=== PATIENT | female | born 1965 | race African-American/Black ===

== ENCOUNTER 2017-02-18 12:47 | Inpatient (IN) | payer BC ==
[2017-02-18 14:59] VITALS: BMI 28.4
--- NOTE | 2017-02-18 17:07 | HP ---
COWS - Scale Resting Pulse: 0= [place] 80 or Below Sweatin=Flushed/Facial Moisture Restless Observation: 1= Difficult to Sit Still Pupil Size: 0= Normal to Room Light Bone or Joint Aches: 2= Severe Diffuse Aches Runny Nose/ Eye Tearin= Runny Nose/Eyes GI Upset > 30mins: 2= Nausea/Diarrhea Tremor Observation: 2= Slight Tremor Visible Yawning Observation: 2= >3x During Session Anxiety or Irritability: 2=Irritable/Anxious Goose Flesh Skin: 3=Piloerection COWS Score: 18 Admission ROS S - HPI Chief Complaint: I need help with my drug use. Allergies/Adverse Reactions: Allergies Allergy/AdvReac Type Severity Reaction Status Date / Time Sulfa (Sulfonamide Allergy Intermediate Hives Verified 02/18/17 16:47 Antibiotics) [Sulfa(Sulfonamide Antibiotics)] History of Present Illness: pt is a 52yr old female with a history of heroin dependence seeking detox for treatment. Exam Limitations: Physical Impairment (use of walker for ambulating) - Ebola screening Have you traveled outside of the country in the last 21 days: No Have you had contact with anyone from an Ebola affected area: No Have you been sick,other than usual withdrawal symptoms: No Do you have a fever: No - Review of Systems Constitutional: Chills, Diaphoresis, Night Sweats, Changes in sleep EENT: reports: Tearing, Nose Congestion Respiratory: reports: No Symptoms reported Cardiac: reports: No Symptoms Reported GI: reports: Diarrhea, Poor Appetite, Poor Fluid Intake : reports: No Symptoms Reported Musculoskeletal: reports: Back Pain, Joint Pain, Muscle Weakness Integumentary: reports: Flushing, Sweating Neuro: reports: Headache, Tingling, Tremors Endocrine: reports: Excessive Sweating, Flushing, Intolerance to Cold, Intolerance to Heat Hematology: reports: Anemia Psychiatric: reports: Judgement Intact, Mood/Affect Appropiate, Orientated x3, Agitated, Anxious Other Systems: Reviewed and Negative Patient History - Patient Medical History Hx Anemia: Yes (d/t gastric bypass) Hx Asthma: No Hx Chronic Obstructive Pulmonary Disease (COPD): No Hx Cancer: No Hx Cardiac Disorders: No Hx Congestive Heart Failure: No Hx Hypertension: Yes Hx Hypercholesterolemia: No Hx Pacemaker: No HX Cerebrovascular Accident: No Hx Seizures: No Hx Dementia: No Hx Diabetes: No (in past/ resolved) Hx Gastrointestinal Disorders: No Hx Liver Disease: No Hx Genitourinary Disorders: No Hx Sexually Transmitted Disorders: No Hx Renal Disease (ESRD): No Hx Thyroid Disease: No Hx Human Immunodeficiency Virus (HIV): No (negative) Hx Hepatitis C: No (negative) Hx Depression: Yes Hx Suicide Attempt: No Hx Bipolar Disorder: Yes Hx Schizophrenia: No - Patient Surgical History Past Surgical History: Yes Hx Neurologic Surgery: No Hx Cataract Extraction: No Hx Cardiac Surgery: No Hx Lung Surgery: No Hx Breast Surgery: No Hx Breast Biopsy: No Hx Abdominal Surgery: No Hx Appendectomy: No Hx Cholecystectomy: Yes (SX--10 YRS AGO) Hx Section: Yes (X1--16 YRS AGO) Hx Orthopedic Surgery: Yes (HIP SX--X5 DUE TO HIP ANOMALY) Other Surgical History: bariatric surgery-sleeve in 2014 Anesthesia Reaction: No - PPD History Previous Implant?: Yes Documented Results: Negative w/o proof Results: 0mm PPD to be Administered?: Yes - Reproductive History Patient is a Female of Child Bearing Age (11 -55 yrs old): No Last Menstrual Period: 10/26/10 - Smoking Cessation Smoking history: Current every day smoker Have you smoked in the past 12 months: Yes Aproximately how many cigarettes per day: 4 Hx Chewing Tobacco Use: No Initiated information on smoking cessation: Yes 'Breaking Loose' booklet given: 02/18/17 - Substance & Tx. History Hx Alcohol Use: Yes Hx Substance Use: Yes Substance Use Type: Cocaine, Heroin Hx Substance Use Treatment: Yes (last detox [facility] 01/2016) - Substances Abused Heroin Route: Inhalation Frequency: Daily Amount used: 2-4 bags Age of first use: 44 Date of Last Use: 02/18/17 Crack Route: Smoking Frequency: 3-6 times per week Amount used: $100 Age of first use: 26 Date of Last Use: 02/17/17 Family Disease History - Family Disease History Family Disease History: Diabetes: Mother, Heart Disease: Mother, Respiratory: Mother, Brother Admission Physical Exam BHS - Vital Signs Vital Signs: Vital Signs - 24 hr 02/18/17 14:55 Temperature 96.8 F L Pulse Rate 66 Respiratory 20 Rate Blood Pressure 115/72 - Physical General Appearance: Yes: Appropriately Dressed, Moderate Distress, Tremorous, Irritable, Sweating, Anxious HEENTM: Yes: Normal Voice, Nasal Congestion, Rhinorrhea Respiratory: Yes: Lungs Clear, Normal Breath Sounds, No Respiratory Distress Neck: Yes: No masses,lesions,Nodules Breast: Yes: Within Normal Limits Cardiology: Yes: Regular Rhythm, Regular Rate, S1, S2 Abdominal: Yes: Normal Bowel Sounds, Non Tender, Soft Genitourinary: Yes: Within Normal Limits Back: Yes: Normal Inspection Musculoskeletal: Yes: full range of Motion, Back pain Extremities: Yes: Normal Capillary Refill, Normal Inspection, Non-Tender, Tremors 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: 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 NML intact, Fully Oriented, Alert, Normal Response Integumentary: Yes: Normal Color, Diaphoresis Lymphatic: Yes: Within Normal Limits - Diagnostic (1) Asthma Current Visit: Yes Status: Chronic (2) Essential hypertension Current Visit: Yes Status: Chronic (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 (4) Nicotine dependence Current Visit: Yes Status: Chronic Qualifiers: Nicotine product type: cigarettes Substance use status: uncomplicated Qualified Code(s): F17.210 - Nicotine dependence, cigarettes, uncomplicated; F17.210 - Nicotine dependence, cigarettes, uncomplicated (5) Opioid dependence with withdrawal Current Visit: Yes Status: Chronic Cleared for Admission [facility] - Detox or Rehab [facility] Level of Care: Medically Managed Detox Regimen/Protocol: Methadone [facility] Breath Alcohol Content Breath Alcohol Content: 0 Urine Pregancy Test - Result Urine Test Results: Negative- NO Line Present Urine Drug Screen - Results Drug Screen Negative: No Urine Drug Screen Results: THC-Marijuana, CINTHIA-Cocaine, OPI-Opiates, BAR- Barbiturates
[2017-02-18] MEDS ORDERED: guaiFENesin/D-METHORPHAN HB 10 ML UNIT-DOSE CUPS PO PRN (17:15)
[2017-02-18] MEDS ORDERED: IBUPROFEN 400 MG TABLET (FP) PO PRN (17:15)
[2017-02-18] MEDS ORDERED: MENTHOL/PHENOL 1 EACH UD MM PRN (17:15)
[2017-02-18] MEDS ORDERED: MAGNESIUM CITRATE 300 ML BOTTLE PO PRN (17:15)
[2017-02-18] MEDS ORDERED: P-EPHED 60MG/TRIPROLIDI 2.5MG TABLET PO PRN (17:15)
[2017-02-18] MEDS ORDERED: MAGNESIUM HYDROX 2400MG/30ML ORAL SUSPENSION 30 ML CUP PO PRN (17:15)
[2017-02-18] MEDS ORDERED: MAG HYDROX/AL HYDROX/SIMETH 30 ML UNIT-DOSE CUP PO PRN (17:15)
[2017-02-18] MEDS ORDERED: LOPERAMIDE HCL 2 MG CAPSULE PO PRN (17:15)
[2017-02-18] MEDS ORDERED: METHADONE HCL 10 MG TABLET (FOR DETOX USE ONLY) PO ONE ×2 (17:45→23:00)
[2017-02-18] MEDS: diazePAM 5 MG TABLET PO PRN ×2 (18:31→22:44)
[2017-02-18 21:18] LABS: URINE APPEARANCE CLOUDY; URINE BILIRUBIN NEGATIVE (NEGATIVE); URINE BLOOD NEGATIVE (NEGATIVE); URINE COLOR AMBER; URINE GLUCOSE (UA) NEGATIVE (NEGATIVE); URINE KETONE TRACE (NEGATIVE); URINE NITRITE NEGATIVE (NEGATIVE)
[2017-02-18 21:23] LABS: URINE PROTEIN 1+ (NEGATIVE)
[2017-02-18 21:26] LABS: URINE BACTERIA RARE /hpf (NONE SEEN); URINE HYALINE CAST 2 /lpf; URINE MUCUS MANY; URINE RBC 2 /hpf (0-3); URINE WBC 16 /hpf (3-5)
[2017-02-18 22:44] LABS: URINE LEUK ESTERASE Negative (NEGATIVE)
[2017-02-18] MEDS: RANITIDINE HCL 150 MG TABLET (FP) PO SCH (22:45)
[2017-02-18] MEDS: GABAPENTIN 100 MG CAPSULE (FP) PO SCH (22:45)
[2017-02-18] MEDS: THIAMINE HCL 100 MG TABLET (FP) PO SCH (22:45)
[2017-02-18] MEDS: diphenhydrAMINE HCL 50 MG CAPSULE PO PRN (22:46)
[2017-02-19] MEDS: diphenhydrAMINE HCL 50 MG CAPSULE PO PRN (01:51)
[2017-02-19] MEDS: NICOTINE POLACRILEX 2 MG GUM BC PRN ×3 (01:53→12:45)
[2017-02-19] MEDS: diazePAM 5 MG TABLET PO PRN ×5 (02:42→22:32)
[2017-02-19] MEDS: GABAPENTIN 100 MG CAPSULE (FP) PO SCH ×3 (06:04→22:27)
--- NOTE | 2017-02-19 07:31 | CONSULT ---
[facility] Psychiatric Consult - Data Date of interview: 02/19/17 Admission source: [facility] Identifying data: This is 52 years old female ambulating with wheelchair, with history of Bipolar disorder, history of psychiatric hospitalizations, intoxicated with: Cocaine, Cannabis, Opioids, Barbiturates, Heroin and Nicotine Substance Abuse History: Result. Urine Test Results: Negative- NO Line Present. Urine Drug Screen. - Results. Drug Screen Negative: No. Urine Drug Screen Results: THC-Marijuana, CINTHIA-Cocaine, OPI-Opiates, BAR-Barbiturates. - Smoking Cessation. Smoking history: Current every day smoker. Have you smoked in the past 12 months: Yes. Aproximately how many cigarettes per day: 4. Hx Chewing Tobacco Use: No. Initiated information on smoking cessation: Yes. 'Breaking Loose' booklet given: 02/18/17. - Substance & Tx. History. Hx Alcohol Use: Yes. Hx Substance Use: Yes. Substance Use Type: Cocaine, Heroin. Hx Substance Use Treatment: Yes (last detox [facility] 01/2016). - Substances Abused. Heroin. Route: Inhalation. Frequency: Daily. Amount used: 2-4 bags. Age of first use: 44. Date of Last Use: 02/18/17. Crack. Route: Smoking. Frequency: 3-6 times per week. Amount used: $100. Age of first use: 26. Date of Last Use: 02/17/17 Medical History: Gastric Bypass history, DM-2, GERD, Asthma, Anemoa history, , Bylateral Hip Fracture history Psychiatric History: Patient reports history of Bipolar Disorder with most recent psychiatric admission on 2015 at [facility] reports taking prior to admission: Risperdal 2mg po bid Physical/Sexual Abuse/Trauma History: Denies Additional Comment: Risperdal 2mg po bid. - Result. Urine Test Results: Negative- NO Line Present. Urine Drug Screen. - Results. Drug Screen Negative: No. Urine Drug Screen Results: THC-Marijuana, CINTHIA-Cocaine, OPI -Opiates, BAR-Barbiturates Mental Status Exam - Mental Status Exam Alert and Oriented to: Person Cognitive Function: Fair Patient Appearance: Well Groomed Mood: Apprehensive Affect: Mood Congruent Patient Behavior: Cooperative Speech Pattern: Appropriate Voice Loudness: Normal Thought Process: Circumstantial Thought Disorder: Being Controlled Hallucinations: Denies Suicidal Ideation: Denies Homicidal Ideation: Denies Insight/Judgement: Fair Sleep: Difficulty falling asleep Appetite: Weight gain Muscle strength/Tone: Clonus Gait/Station: Deferred Additional Comments: Risperdal 2mg po bid Psychiatric Findings - Problem List ([place] 1, 2,3) (1) Nicotine dependence Current Visit: Yes Status: Chronic Qualifiers: Nicotine product type: cigarettes Substance use status: uncomplicated Qualified Code(s): F17.210 - Nicotine dependence, cigarettes, uncomplicated; F17.210 - Nicotine dependence, cigarettes, uncomplicated (2) Opioid dependence with withdrawal Current Visit: Yes Status: Chronic (3) Bipolar disorder Current Visit: Yes Status: Acute (4) Barbiturate abuse Current Visit: Yes Status: Acute (5) Cannabis dependence Current Visit: Yes Status: Acute (6) Cocaine dependence Current Visit: Yes Status: Acute - Initial Treatment Plan Initial Treatment Plan: Risperdal 2mg po bid
[2017-02-19] MEDS ORDERED: TRIMETHOBENZAMIDE HCL 200MG/2ML INJ IM PRN (08:52)
[2017-02-19] MEDS ORDERED: TRIMETHOBENZAMIDE HCL 200MG/2ML INJ IM ONE (08:52)
[2017-02-19] MEDS: hydrOXYzine PAMOATE 50 MG CAPSULE (FP) PO PRN (08:57)
[2017-02-19] MEDS ORDERED: METHADONE HCL 10 MG TABLET (FOR DETOX USE ONLY) PO ONE (10:00)
[2017-02-19 10:01] LABS: MCH 29.6 pg (25.7-33.7); MCHC 33.5 g/dl (32.0-36.0); MEAN CELL VOLUME 88.4 fl (80-96); MEAN PLT VOLUME 8.9 fl (7.5-11.1); PLATELET COUNT 172 K/MM3 (134-434)
[2017-02-19 10:17] LABS: ALBUMIN 3.1 g/dl (3.4-5.0); ALK PHOS 88 U/L (45-117); ANION GAP 8 (8-16); BILIRUBIN,TOTAL 0.3 mg/dL (0.2-1.0); CALCIUM 8.5 mg/dL (8.5-10.1); CO2 29 mmol/L (21-32); CREATININE 0.7 mg/dL (0.55-1.02); GLUCOSE,RANDOM 142 mg/dL (74-106); SGOT/AST 14 U/L (15-37); SGPT/ALT 20 U/L (12-78)
[2017-02-19] MEDS: risperiDONE 2 MG TABLET PO SCH ×2 (10:53→22:27)
[2017-02-19] MEDS: RANITIDINE HCL 150 MG TABLET (FP) PO SCH ×2 (10:53→22:27)
[2017-02-19] MEDS: PRENATAL VITAMINS W/ FOLIC ACID TABLET (FP) PO SCH (10:54)
--- NOTE | 2017-02-19 10:56 | PN ---
S COWS - Scale Resting Pulse: 0= [place] 80 or Below Sweatin=Flushed/Facial Moisture Restless Observation: 1= Difficult to Sit Still Pupil Size: 0= Normal to Room Light Bone or Joint Aches: 2= Severe Diffuse Aches Runny Nose/ Eye Tearin= Nasal Congestion GI Upset > 30mins: 2= Nausea/Diarrhea Tremor Observation of Outstretched Hands: 2= Slight Tremor Visible Yawning Observation: 2= >3x During Session Anxiety or Irritability: 2=Irritable/Anxious Goose Flesh Skin: 3=Piloerection COWS Score: 17 BHS Progress Note (SOAP) Subjective: body aches sweats shakes interrupted sleep agitation nausea Objective: 02/19/17 10:54 Vital Signs Temperature 97.9 F 02/19/17 06:49 Pulse Rate 51 L 02/19/17 06:49 Respiratory Rate 16 02/19/17 06:49 Blood Pressure 116/53 02/19/17 06:49 O2 Sat by Pulse Oximetry (%) Laboratory Tests 02/18/17 02/18/17 02/19/17 17:13 20:45 07:15 WBC 8.0 RBC 3.89 Hgb 11.5 D Hct 34.4 D MCV 88.4 MCH 29.6 MCHC 33.5 RDW 14.0 Plt Count 172 D MPV 8.9 POC Glucometer 148 Urine Color Gayla Urine Appearance Cloudy Urine pH 5.0 Ur Specific [place] 1.025 Urine Protein 1+ H Urine Glucose (UA) Negative Urine Ketones Trace H Urine Blood Negative Urine Nitrite Negative Urine Bilirubin Negative Urine Urobilinogen 2.0 H Ur Leukocyte Esterase Negative Urine RBC 2 Urine WBC 16 Ur Epithelial Cells Few Urine Bacteria Rare Hyaline Casts 2 Urine Mucus Many RPR Titer 02/19/17 02/19/17 07:15 07:59 WBC RBC Hgb Hct MCV MCH MCHC RDW Plt Count MPV POC Glucometer 111 Urine Color Urine Appearance Urine pH Ur Specific [place] Urine Protein Urine Glucose (UA) Urine Ketones Urine Blood Urine Nitrite Urine Bilirubin Urine Urobilinogen Ur Leukocyte Esterase Urine RBC Urine WBC Ur Epithelial Cells Urine Bacteria Hyaline Casts Urine Mucus RPR Titer Nonreactive labs pending aaox3 ambulating no acute distress Assessment: 02/19/17 10:56 withdrawal sx Plan: continue detox increase fluids tigan prn labs pending
--- NOTE | 2017-02-19 13:24 | EKG ---
Test Reason : Blood Pressure : / mmHG Vent. Rate : 059 BPM Atrial Rate : 059 BPM P-R Int : 174 ms QRS Dur : 102 ms QT Int : 420 ms P-R-T Axes : 054 -20 -06 degrees QTc Int : 415 ms SINUS BRADYCARDIA LOW VOLTAGE QRS CANNOT RULE OUT ANTERIOR INFARCT , AGE UNDETERMINED ABNORMAL ECG NO PREVIOUS ECGS AVAILABLE Confirmed by OBINNA BEAULIEU MD ([id number]) on 02/19/2017 1:23:57 PM Referred By: Confirmed By:OBINNA BEAULIEU MD
[2017-02-19] MEDS: THIAMINE HCL 100 MG TABLET (FP) PO SCH (22:27)
[2017-02-20] MEDS: hydrOXYzine PAMOATE 50 MG CAPSULE (FP) PO PRN (00:50)
[2017-02-20] MEDS: ACETAMINOPHEN 325 MG TABLET (FP) PO PRN (00:51)
[2017-02-20] MEDS: GABAPENTIN 100 MG CAPSULE (FP) PO SCH ×3 (05:45→23:12)
[2017-02-20] MEDS: diazePAM 5 MG TABLET PO PRN ×4 (05:48→23:14)
--- NOTE | 2017-02-20 09:50 | PN ---
S COWS - Scale Resting Pulse: 0= [place] 80 or Below Sweatin=Flushed/Facial Moisture Restless Observation: 1= Difficult to Sit Still Pupil Size: 0= Normal to Room Light Bone or Joint Aches: 2= Severe Diffuse Aches Runny Nose/ Eye Tearin= Nasal Congestion GI Upset > 30mins: 0= None Tremor Observation of Outstretched Hands: 2= Slight Tremor Visible Yawning Observation: 1= 1-2x During Session Anxiety or Irritability: 2=Irritable/Anxious Goose Flesh Skin: 0=Smooth Skin COWS Score: 11 S Progress Note (SOAP) Subjective: chronic hip pain sweats interrupted sleep agitation Objective: 02/20/17 09:48 Vital Signs Temperature 97.5 F L 02/20/17 09:47 Pulse Rate 70 02/20/17 09:47 Respiratory Rate 18 02/20/17 09:47 Blood Pressure 150/99 02/20/17 09:47 O2 Sat by Pulse Oximetry (%) Laboratory Tests 02/18/17 02/18/17 02/19/17 17:13 20:45 07:15 WBC 8.0 RBC 3.89 Hgb 11.5 D Hct 34.4 D MCV 88.4 MCH 29.6 MCHC 33.5 RDW 14.0 Plt Count 172 D MPV 8.9 Sodium Potassium Chloride Carbon Dioxide Anion Gap BUN Creatinine Creat Clearance w eGFR POC Glucometer 148 Random Glucose Calcium Total Bilirubin AST ALT Alkaline Phosphatase Total Protein Albumin Urine Color Gayla Urine Appearance Cloudy Urine pH 5.0 Ur Specific [place] 1.025 Urine Protein 1+ H Urine Glucose (UA) Negative Urine Ketones Trace H Urine Blood Negative Urine Nitrite Negative Urine Bilirubin Negative Urine Urobilinogen 2.0 H Ur Leukocyte Esterase Negative Urine RBC 2 Urine WBC 16 Ur Epithelial Cells Few Urine Bacteria Rare Hyaline Casts 2 Urine Mucus Many RPR Titer 02/19/17 02/19/17 02/19/17 07:15 07:15 07:59 WBC RBC Hgb Hct MCV MCH MCHC RDW Plt Count MPV Sodium 139 Potassium 3.5 D Chloride 102 Carbon Dioxide 29 Anion Gap 8 BUN 12 Creatinine 0.7 Creat Clearance w eGFR > 60 POC Glucometer 111 Random Glucose 142 H Calcium 8.5 Total Bilirubin 0.3 D AST 14 L ALT 20 Alkaline Phosphatase 88 D Total Protein 6.0 L Albumin 3.1 L D Urine Color Urine Appearance Urine pH Ur Specific [place] Urine Protein Urine Glucose (UA) Urine Ketones Urine Blood Urine Nitrite Urine Bilirubin Urine Urobilinogen Ur Leukocyte Esterase Urine RBC Urine WBC Ur Epithelial Cells Urine Bacteria Hyaline Casts Urine Mucus RPR Titer Nonreactive aaox3 ambulating no acute distress Assessment: 02/20/17 09:48 withdrawal sx Plan: continue detox increase fluids motrin 800mg prn lidocaine patch daily to both hips
[2017-02-20] MEDS ORDERED: METHADONE HCL 5 MG TABLET (FOR DETOX USE ONLY) PO ONE (10:00)
[2017-02-20] MEDS: PRENATAL VITAMINS W/ FOLIC ACID TABLET (FP) PO SCH (10:57)
[2017-02-20] MEDS: IBUPROFEN 400 MG TABLET (FP) PO PRN (10:57)
[2017-02-20] MEDS: risperiDONE 2 MG TABLET PO SCH ×2 (10:58→23:12)
[2017-02-20] MEDS: RANITIDINE HCL 150 MG TABLET (FP) PO SCH ×2 (10:58→23:12)
[2017-02-20] MEDS: LIDOCAINE 5% TOPICAL PATCH TP SCH (10:58)
[2017-02-20] MEDS: THIAMINE HCL 100 MG TABLET (FP) PO SCH (23:12)
[2017-02-21] MEDS: LIDOCAINE PATCH REMOVAL MC SCH ×2 (00:48→22:33)
[2017-02-21] MEDS: GABAPENTIN 100 MG CAPSULE (FP) PO SCH ×3 (06:25→22:32)
[2017-02-21] MEDS: diazePAM 5 MG TABLET PO PRN ×2 (06:31→10:52)
[2017-02-21] MEDS: IBUPROFEN 400 MG TABLET (FP) PO PRN ×2 (08:33→19:57)
[2017-02-21] MEDS ORDERED: METHADONE HCL 5 MG TABLET (FOR DETOX USE ONLY) PO ONE (10:00)
[2017-02-21] MEDS: PRENATAL VITAMINS W/ FOLIC ACID TABLET (FP) PO SCH (10:49)
[2017-02-21] MEDS: LIDOCAINE 5% TOPICAL PATCH TP SCH (10:50)
[2017-02-21] MEDS: risperiDONE 2 MG TABLET PO SCH ×2 (10:50→22:32)
[2017-02-21] MEDS: RANITIDINE HCL 150 MG TABLET (FP) PO SCH ×2 (10:50→22:32)
--- NOTE | 2017-02-21 11:26 | PN ---
BHS Progress Note (SOAP) Subjective: interrupted sleep, sweats, shakes, weakness Objective: 02/21/17 11:25 Vital Signs Temperature 97.7 F 02/21/17 10:00 Pulse Rate 95 H 02/21/17 10:00 Respiratory Rate 17 02/21/17 10:00 Blood Pressure 150/87 02/21/17 10:00 O2 Sat by Pulse Oximetry (%) Laboratory Tests 02/18/17 02/18/17 02/19/17 17:13 20:45 07:15 WBC 8.0 RBC 3.89 Hgb 11.5 D Hct 34.4 D MCV 88.4 MCH 29.6 MCHC 33.5 RDW 14.0 Plt Count 172 D MPV 8.9 Sodium Potassium Chloride Carbon Dioxide Anion Gap BUN Creatinine Creat Clearance w eGFR POC Glucometer 148 Random Glucose Calcium Total Bilirubin AST ALT Alkaline Phosphatase Total Protein Albumin Urine Color Gayla Urine Appearance Cloudy Urine pH 5.0 Ur Specific [place] 1.025 Urine Protein 1+ H Urine Glucose (UA) Negative Urine Ketones Trace H Urine Blood Negative Urine Nitrite Negative Urine Bilirubin Negative Urine Urobilinogen 2.0 H Ur Leukocyte Esterase Negative Urine RBC 2 Urine WBC 16 Ur Epithelial Cells Few Urine Bacteria Rare Hyaline Casts 2 Urine Mucus Many RPR Titer 02/19/17 02/19/17 02/19/17 07:15 07:15 07:59 WBC RBC Hgb Hct MCV MCH MCHC RDW Plt Count MPV Sodium 139 Potassium 3.5 D Chloride 102 Carbon Dioxide 29 Anion Gap 8 BUN 12 Creatinine 0.7 Creat Clearance w eGFR > 60 POC Glucometer 111 Random Glucose 142 H Calcium 8.5 Total Bilirubin 0.3 D AST 14 L ALT 20 Alkaline Phosphatase 88 D Total Protein 6.0 L Albumin 3.1 L D Urine Color Urine Appearance Urine pH Ur Specific [place] Urine Protein Urine Glucose (UA) Urine Ketones Urine Blood Urine Nitrite Urine Bilirubin Urine Urobilinogen Ur Leukocyte Esterase Urine RBC Urine WBC Ur Epithelial Cells Urine Bacteria Hyaline Casts Urine Mucus RPR Titer Nonreactive 02/21/17 06:27 WBC RBC Hgb Hct MCV MCH MCHC RDW Plt Count MPV Sodium Potassium Chloride Carbon Dioxide Anion Gap BUN Creatinine Creat Clearance w eGFR POC Glucometer 200 Random Glucose Calcium Total Bilirubin AST ALT Alkaline Phosphatase Total Protein Albumin Urine Color Urine Appearance Urine pH Ur Specific [place] Urine Protein Urine Glucose (UA) Urine Ketones Urine Blood Urine Nitrite Urine Bilirubin Urine Urobilinogen Ur Leukocyte Esterase Urine RBC Urine WBC Ur Epithelial Cells Urine Bacteria Hyaline Casts Urine Mucus RPR Titer pt aox3 in nad , sitting on walker outside of day room Assessment: 02/21/17 11:26 withdrawal sx's dm weak- neuropathic muscular atrophy 02/21/17 11:28 Plan: cont. detox increase fluids
[2017-02-21] MEDS: hydrOXYzine PAMOATE 50 MG CAPSULE (FP) PO PRN (22:32)
[2017-02-21] MEDS: THIAMINE HCL 100 MG TABLET (FP) PO SCH (22:32)
[2017-02-21] MEDS: ACETAMINOPHEN 325 MG TABLET (FP) PO PRN (22:33)
[2017-02-22] MEDS: ALBUTEROL SO4 18 GM HFA INHALER IH PRN ×2 (03:37→17:37)
[2017-02-22] MEDS: IBUPROFEN 400 MG TABLET (FP) PO PRN ×2 (03:41→17:35)
[2017-02-22] MEDS: GABAPENTIN 100 MG CAPSULE (FP) PO SCH ×3 (05:58→21:07)
[2017-02-22] MEDS: hydrOXYzine PAMOATE 50 MG CAPSULE (FP) PO PRN ×3 (06:00→20:02)
[2017-02-22] MEDS ORDERED: METHADONE HCL 10 MG TABLET (FOR DETOX USE ONLY) PO ONE (10:00)
[2017-02-22] MEDS ORDERED: COLLOIDAL OATMEAL 1 BAR EACH TP PRN (10:01)
[2017-02-22] MEDS: PRENATAL VITAMINS W/ FOLIC ACID TABLET (FP) PO SCH (10:51)
[2017-02-22] MEDS: RANITIDINE HCL 150 MG TABLET (FP) PO SCH ×2 (10:51→23:06)
[2017-02-22] MEDS: risperiDONE 2 MG TABLET PO SCH ×2 (10:51→23:06)
[2017-02-22] MEDS: LIDOCAINE 5% TOPICAL PATCH TP SCH (10:51)
--- NOTE | 2017-02-22 14:30 | PN ---
BHS Progress Note (SOAP) Subjective: ALERT,IRRITABLE,ANXIOUS,INTERRUPTED SLEEP Objective: 02/22/17 14:29 Vital Signs Temperature 97.5 F L 02/22/17 14:12 Pulse Rate 92 H 02/22/17 14:12 Respiratory Rate 18 02/22/17 14:12 Blood Pressure 154/102 02/22/17 14:12 O2 Sat by Pulse Oximetry (%) BGM 123 Assessment: 02/22/17 14:29 WITHDRAWAL SYMPTOM 02/22/17 14:29 Plan: CONTINUE DETOX,BGM MONITORING
[2017-02-22] MEDS: THIAMINE HCL 100 MG TABLET (FP) PO SCH (23:06)
[2017-02-22] MEDS: LIDOCAINE PATCH REMOVAL MC SCH (23:06)
[2017-02-22] MEDS: NICOTINE POLACRILEX 2 MG GUM BC PRN (23:07)
[2017-02-22] MEDS: diphenhydrAMINE HCL 50 MG CAPSULE PO PRN (23:07)
[2017-02-23] MEDS: ACETAMINOPHEN 325 MG TABLET (FP) PO PRN (01:12)
[2017-02-23] MEDS: hydrOXYzine PAMOATE 50 MG CAPSULE (FP) PO PRN (01:12)
[2017-02-23] MEDS ORDERED: METHADONE HCL 5 MG TABLET (FOR DETOX USE ONLY) PO ONE (06:00)
[2017-02-23] MEDS: GABAPENTIN 100 MG CAPSULE (FP) PO SCH (06:12)
[2017-02-23] MEDS: IBUPROFEN 400 MG TABLET (FP) PO PRN (06:14)
[2017-02-23] MEDS: NICOTINE POLACRILEX 2 MG GUM BC PRN ×2 (06:15→10:23)
[2017-02-23 07:03] VITALS: BP 146/72; PULSE 80; TEMP 97.2
[2017-02-23] MEDS: RANITIDINE HCL 150 MG TABLET (FP) PO SCH (09:55)
[2017-02-23] MEDS: PRENATAL VITAMINS W/ FOLIC ACID TABLET (FP) PO SCH (09:55)
[2017-02-23] MEDS: risperiDONE 2 MG TABLET PO SCH (09:55)
[2017-02-23] MEDS: LIDOCAINE 5% TOPICAL PATCH TP SCH (09:56)
--- NOTE | 2017-02-23 10:15 | DS ---
[facility] Detox Discharge Summary Admission Date: 02/18/17 Discharge Date: 02/23/17 - History Present History: Opioid Dependence Additional Comments: FOLLOW UP WITH AFTER [facility] PROGRAM ARRANGEMENT Pertinent Past History: HYPERTENSION NEUROPATHIC MUSCULAR ATROPHY NICOTINE DEPENDENCE AMBULATION WITH WALKER ASTHMA GERD - Physical Exam Results Vital Signs: Vital Signs Temperature 97.2 F L 02/23/17 07:02 Pulse Rate 80 02/23/17 07:02 Respiratory Rate 18 02/23/17 07:02 Blood Pressure 146/72 02/23/17 07:02 O2 Sat by Pulse Oximetry (%) Pertinent Admission Physical Exam Findings: WITHDRAWAL SYMPTOM - Treatment Hospital Course: Detox Protocol Followed, Detoxed Safely, Responded well, Discharged Condition Good, Rehab Referral Accepted Patient has Accepted a Rehab Referral to: [facility] - Medication Discharge Medications: Ambulatory Orders Risperidone [Risperdal -] 2 mg PO BID #60 tablet 02/19/16 Albuterol Sulfate Inhaler - [Ventolin HFA Inhaler -] 2 inh IH Q4H PRN #1 inhaler 02/23/16 Gabapentin [Neurontin -] 500 mg PO TID 02/18/17 Ranitidine [Zantac -] 150 mg PO BID 02/18/17 Risperidone [Risperdal -] 2 mg PO BID #60 tablet 02/19/17 - Diagnosis (1) Opioid dependence with withdrawal Current Visit: Yes Status: Chronic (2) Bipolar disorder Current Visit: Yes Status: Acute (3) Acid reflux Current Visit: Yes Status: Chronic (4) Asthma Current Visit: Yes Status: Chronic (5) H/O gastric bypass Current Visit: Yes Status: Chronic (6) Neuropathic muscular atrophy Current Visit: Yes Status: Chronic (7) Nicotine dependence Current Visit: Yes Status: Chronic Qualifiers: Nicotine product type: cigarettes Substance use status: uncomplicated Qualified Code(s): F17.210 - Nicotine dependence, cigarettes, uncomplicated; F17.210 - Nicotine dependence, cigarettes, uncomplicated (8) Walker as ambulation aid Current Visit: Yes Status: Acute
== END 2017-02-23 11:15 | disposition other institution (70) | DRG 773 ==
LOC: YASAS 12:47 → Y6N 17:26
PROVIDERS: ADMIT Internal Medicine; ATTEND Internal Medicine
PROC: HZ2ZZZZ Detoxification Services for Substance Abuse Treatment (ICD-10-PCS; principal; 2017-02-18)
DX: F11.23 Opioid dependence with withdrawal (principal); F17.210 Nicotine dependence, cigarettes, uncomplicated; F31.9 Bipolar disorder, unspecified; I10 Essential (primary) hypertension; K21.9 Gastro-esophageal reflux disease without esophagitis; J45.909 Unspecified asthma, uncomplicated; G60.0 Hereditary motor and sensory neuropathy; R26.2 Difficulty in walking, not elsewhere classified; Z99.89 Dependence on other enabling machines and devices; Z98.84 Bariatric surgery status; Z88.2 Allergy status to sulfonamides; Z86.39 Personal history of other endocrine, nutritional and metabolic disease
CPT/HCPCS: 36415; 80053; 81003; 81015; 85027; 86593; 93005; 93010

== ENCOUNTER 2017-02-23 11:26 | Inpatient (IN) | payer BC ==
[2017-02-23] MEDS ORDERED: MAGNESIUM CITRATE 300 ML BOTTLE PO PRN (12:29)
[2017-02-23] MEDS ORDERED: MAGNESIUM HYDROX 2400MG/30ML ORAL SUSPENSION 30 ML CUP PO PRN (12:29)
[2017-02-23] MEDS ORDERED: diphenhydrAMINE HCL 50 MG CAPSULE PO PRN (12:29)
[2017-02-23] MEDS ORDERED: P-EPHED 60MG/TRIPROLIDI 2.5MG TABLET PO PRN (12:29)
[2017-02-23] MEDS ORDERED: hydrOXYzine PAMOATE 25 MG CAPSULE (FP) PO PRN (12:29)
[2017-02-23] MEDS ORDERED: MENTHOL/PHENOL 1 EACH UD MM PRN (12:29)
[2017-02-23] MEDS ORDERED: LOPERAMIDE HCL 2 MG CAPSULE PO PRN (12:29)
[2017-02-23] MEDS ORDERED: MAG HYDROX/AL HYDROX/SIMETH 30 ML UNIT-DOSE CUP PO PRN (12:29)
[2017-02-23] MEDS ORDERED: guaiFENesin/D-METHORPHAN HB 10 ML UNIT-DOSE CUPS PO PRN (12:29)
[2017-02-23] MEDS ORDERED: ALBUTEROL SO4 18 GM HFA INHALER IH PRN (12:30)
--- NOTE | 2017-02-23 12:38 | HP ---
[facility] Rehab Assess/Revision - Admission History Admitted to Rehab from: [facility] Date of Admission to Rehab: 02/23/17 - Vital signs Vital Signs: Vital Signs Period Temp Pulse Resp BP Sys/Stevens Pulse Ox Last 24 Hr 97.8 F 91 18 111/66 - Findings Detox History & Physical reviewed: Yes Concur with findings: Yes Comments/Additional Findings: FOR REHAB PROTOCOL Inpatient Rehab Admission - Initial Determination Are CD services needed?: Yes Free of communicable disease: Yes Not in need of hospitalization: Yes - Rehab Admission Criteria Previous failed treatment: Yes Poor recovery environment: Yes Comorbidities: Yes Patient is meeting Inpatient Rehab admission criteria:: Yes
[2017-02-23] MEDS ORDERED: COLLOIDAL OATMEAL 1 BAR EACH TP PRN (13:18)
[2017-02-23] MEDS: GABAPENTIN 100 MG CAPSULE (FP) PO SCH ×2 (13:57→21:20)
[2017-02-23] MEDS: FUROSEMIDE 20 MG TABLET (FP) PO SCH (13:57)
[2017-02-23] MEDS: IBUPROFEN 400 MG TABLET (FP) PO PRN (13:57)
[2017-02-23] MEDS: ACETAMINOPHEN 325 MG TABLET (FP) PO PRN (17:15)
[2017-02-23] MEDS ORDERED: NICOTINE POLACRILEX 2 MG GUM BUC PRN (20:05)
[2017-02-23] MEDS ORDERED: PT OWN MED DRAWER 7, Y5N ONE (21:15)
[2017-02-23] MEDS: RANITIDINE HCL 150 MG TABLET (FP) PO SCH (21:20)
[2017-02-23] MEDS: THIAMINE HCL 100 MG TABLET (FP) PO SCH (21:20)
[2017-02-23] MEDS: risperiDONE 2 MG TABLET PO SCH (21:20)
[2017-02-24] MEDS: IBUPROFEN 400 MG TABLET (FP) PO PRN ×3 (01:01→17:10)
[2017-02-24] MEDS: ACETAMINOPHEN 325 MG TABLET (FP) PO PRN ×2 (05:47→11:55)
[2017-02-24] MEDS: GABAPENTIN 100 MG CAPSULE (FP) PO SCH ×3 (05:47→21:04)
[2017-02-24] MEDS: RANITIDINE HCL 150 MG TABLET (FP) PO SCH ×2 (09:54→21:05)
[2017-02-24] MEDS: FUROSEMIDE 20 MG TABLET (FP) PO SCH (09:54)
[2017-02-24] MEDS: PRENATAL VITAMINS W/ FOLIC ACID TABLET (FP) PO SCH (09:54)
[2017-02-24] MEDS: risperiDONE 2 MG TABLET PO SCH ×2 (09:54→21:04)
[2017-02-24 10:43] LABS: HIV 1 & 2 AB NEGATIVE; HIV 1 AGp24 NEGATIVE
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
--- NOTE | 2017-02-24 12:32 | PN ---
S Progress Note Note: c/o bilateral hip pain from arthritis, requesting lidocaine patch for each hips chornic pain x215 years, also pain and swelling left ankle, no calf tenderness, cristal neg, r+l both tender and painful. elevate, pain meds prn
[2017-02-24] MEDS: LIDOCAINE 5% TOPICAL PATCH TP SCH (13:06)
[2017-02-24] MEDS ORDERED: PT OWN MED DRAWER 7, Y5N ONE (16:34)
[2017-02-24] MEDS: THIAMINE HCL 100 MG TABLET (FP) PO SCH (21:05)
[2017-02-24] MEDS ORDERED: SUVOREXANT 10 MG TABLET PO SCH (22:00)
[2017-02-24] MEDS ORDERED: LIDOCAINE PATCH REMOVAL MC SCH (22:00)
[2017-02-25] MEDS: ACETAMINOPHEN 325 MG TABLET (FP) PO PRN ×2 (00:27→07:50)
[2017-02-25] MEDS: IBUPROFEN 400 MG TABLET (FP) PO PRN (06:08)
[2017-02-25] MEDS: GABAPENTIN 100 MG CAPSULE (FP) PO SCH (06:08)
[2017-02-25 06:47] VITALS: BP 147/93; PULSE 82; TEMP 97.7
[2017-02-25] MEDS ORDERED: PT OWN MED DRAWER 7, Y5N ONE ×3 (08:19→09:28)
--- NOTE | 2017-02-25 09:13 | PN ---
[facility] Progress Note Note: patient decided to sign out today AMA.See staff notes for details.Patient will continue to address her issues on outpatient basis,will continue current medications as per plan.scripts provided.
[2017-02-25] MEDS: RANITIDINE HCL 150 MG TABLET (FP) PO SCH (09:27)
[2017-02-25] MEDS: risperiDONE 2 MG TABLET PO SCH (09:27)
[2017-02-25] MEDS: FUROSEMIDE 20 MG TABLET (FP) PO SCH (09:28)
[2017-02-25] MEDS: LIDOCAINE 5% TOPICAL PATCH TP SCH (09:28)
[2017-02-25] MEDS: PRENATAL VITAMINS W/ FOLIC ACID TABLET (FP) PO SCH (09:30)
[2017-02-25] MEDS ORDERED: NAPROXEN 500 MG TABLET (FP) PO SCH (10:00)
== END 2017-02-25 10:10 | disposition left against medical advice (07) | DRG 770 ==
LOC: YASAS 11:26 → Y3E 11:28
PROVIDERS: ADMIT Psychiatry & Neurology Psychiatry; ATTEND Psychiatry & Neurology Psychiatry
PROC: HZ42ZZZ Group Counseling for Substance Abuse Treatment, Cognitive-Behavioral (ICD-10-PCS; principal; 2017-02-23)
DX: F11.20 Opioid dependence, uncomplicated (principal); F14.20 Cocaine dependence, uncomplicated; F12.20 Cannabis dependence, uncomplicated; F17.210 Nicotine dependence, cigarettes, uncomplicated; F31.9 Bipolar disorder, unspecified; J45.909 Unspecified asthma, uncomplicated; K21.9 Gastro-esophageal reflux disease without esophagitis; D50.8 Other iron deficiency anemias; Z09 Encounter for follow-up examination after completed treatment for conditions other than malignant neoplasm; Z96.651 Presence of right artificial knee joint; Z98.84 Bariatric surgery status; R26.89 Other abnormalities of gait and mobility; Z99.89 Dependence on other enabling machines and devices
CPT/HCPCS: 36415; 87389

== ENCOUNTER 2017-04-02 09:19 | Inpatient (IN) | payer BC ==
[2017-04-02 11:25] VITALS: BMI 19.8
--- NOTE | 2017-04-02 12:57 | HP ---
COWS - Scale Resting Pulse: 1= [place] 81-100 Sweatin=Flushed/Facial Moisture Restless Observation: 1= Difficult to Sit Still Pupil Size: 0= Normal to Room Light Bone or Joint Aches: 2= Severe Diffuse Aches Runny Nose/ Eye Tearin= Runny Nose/Eyes GI Upset > 30mins: 2= Nausea/Diarrhea Tremor Observation: 2= Slight Tremor Visible Yawning Observation: 2= >3x During Session Anxiety or Irritability: 2=Irritable/Anxious Goose Flesh Skin: 5=Prominent Piloerection COWS Score: 21 CIWA Score - CIWA Score Nausea/Vomitin-Mild Nausea/No Vomiting Muscle Tremors: 4-Moderate,w/Arms Extend Anxiety: 4-Mod. Anxious/Guarded Agitation: 4-Moderately Restless Paroxysmal Sweats: 3 Orientation: 0-Oriented Tacttile Disturbances: 0-None Auditory Disturbances: 0-None Visual Disturbances: 0-None Headache: 0-None Present CIWA-Ar Total Score: 16 Admission ROS BHS - HPI Chief Complaint: I need to get it right. Allergies/Adverse Reactions: Allergies Allergy/AdvReac Type Severity Reaction Status Date / Time Sulfa (Sulfonamide Allergy Intermediate Hives Verified 04/02/17 11:38 Antibiotics) [Sulfa(Sulfonamide Antibiotics)] History of Present Illness: pt is a 52yr old female with a history of heroin and crack cocaine dependence seeking detox for treatment. Exam Limitations: No Limitations - Ebola screening Have you traveled outside of the country in the last 21 days: No Have you had contact with anyone from an Ebola affected area: No Have you been sick,other than usual withdrawal symptoms: No Do you have a fever: No - Review of Systems Constitutional: Chills, Diaphoresis, Loss of Appetite, Night Sweats, Unintentional Wgt. Loss EENT: reports: Blurred Vision, Tearing Respiratory: reports: No Symptoms reported Cardiac: reports: No Symptoms Reported GI: reports: Diarrhea, Nausea, Poor Appetite, Poor Fluid Intake : reports: No Symptoms Reported Musculoskeletal: reports: Back Pain, Joint Pain, Muscle Pain Integumentary: reports: Flushing, Sweating Neuro: reports: Tingling, Tremors Endocrine: reports: Excessive Sweating, Flushing, Intolerance to Cold, Intolerance to Heat Hematology: reports: No Symptoms Reported Psychiatric: reports: Judgement Intact, Mood/Affect Appropiate, Orientated x3, Agitated, Anxious Other Systems: Reviewed and Negative Patient History - Patient Medical History Hx Anemia: Yes (d/t gastric bypass) Hx Asthma: Yes (Pt is on MDI) Hx Chronic Obstructive Pulmonary Disease (COPD): No Hx Cancer: No Hx Cardiac Disorders: No Hx Congestive Heart Failure: No Hx Hypertension: Yes Hx Hypercholesterolemia: No Hx Pacemaker: No HX Cerebrovascular Accident: No Hx Seizures: No Hx Dementia: No Hx Diabetes: No Hx Gastrointestinal Disorders: Yes (Hx of acid reflux.) Hx Liver Disease: No Hx Genitourinary Disorders: No Hx Sexually Transmitted Disorders: No Hx Renal Disease (ESRD): No Hx Thyroid Disease: No Hx Human Immunodeficiency Virus (HIV): No (negative) Hx Hepatitis C: No (negative) Hx Depression: Yes Hx Suicide Attempt: No (negative) Hx Bipolar Disorder: Yes Hx Schizophrenia: No - Patient Surgical History Past Surgical History: Yes Hx Neurologic Surgery: No Hx Cataract Extraction: No Hx Cardiac Surgery: No Hx Lung Surgery: No Hx Breast Surgery: No Hx Breast Biopsy: No Hx Abdominal Surgery: No Hx Appendectomy: No Hx Cholecystectomy: Yes (SX--10 YRS AGO) Hx Section: Yes (X1--16 YRS AGO) Hx Orthopedic Surgery: Yes (HIP SX--X5 DUE TO HIP ANOMALY) Other Surgical History: bariatric surgery-sleeve in 2014 Anesthesia Reaction: No - PPD History Previous Implant?: Yes Documented Results: Negative w/proof Implanted On Prior [facility] Admission?: Yes Date: 02/20/17 Results: 0 MM PPD to be Administered?: No - Reproductive History Patient is a Female of Child Bearing Age (11 -55 yrs old): No Last Menstrual Period: 10/26/10 Patient : No - Smoking Cessation Smoking history: Current every day smoker Have you smoked in the past 12 months: Yes Aproximately how many cigarettes per day: 6 Hx Chewing Tobacco Use: No Initiated information on smoking cessation: Yes 'Breaking Loose' booklet given: 04/02/17 - Substance & Tx. History Hx Alcohol Use: No Hx Substance Use: Yes Substance Use Type: Cocaine, Heroin, Marijuana Hx Substance Use Treatment: Yes ([facility] 01/2017) - Substances Abused Heroin Route: Inhalation Frequency: Daily Amount used: 4-5 BAGS Age of first use: 14 Date of Last Use: 03/31/17 Crack Route: Smoking Frequency: Daily Amount used: $30 Age of first use: 26 Date of Last Use: 03/31/17 Marijuana/Hashish Route: Smoking Frequency: Daily Amount used: 1 BLUNT Age of first use: 24 Date of Last Use: 03/30/17 Alcohol Route: Oral Frequency: Daily Amount used: 1 PINT Age of first use: 28 Date of Last Use: 03/30/17 Family Disease History - Family Disease History Family Disease History: Diabetes: Mother, Heart Disease: Mother, Respiratory: Mother, Brother Admission Physical Exam [facility] - Vital Signs Vital Signs: Vital Signs - 24 hr 04/02/17 11:21 Temperature 98.7 F Pulse Rate 94 H Respiratory 19 Rate Blood Pressure 132/99 - Physical General Appearance: Yes: Appropriately Dressed, Moderate Distress, Tremorous, Sweating, Anxious HEENTM: Yes: Normal Voice, Rhinorrhea Respiratory: Yes: Normal Breath Sounds, No Respiratory Distress Neck: Yes: No masses,lesions,Nodules Breast: Yes: Within Normal Limits Cardiology: Yes: Regular Rhythm, Regular Rate, S1, S2 Abdominal: Yes: Normal Bowel Sounds, Non Tender, Flat, Soft Genitourinary: Yes: Within Normal Limits Back: Yes: Normal Inspection Musculoskeletal: Yes: full range of Motion, Back pain Extremities: Yes: Normal Capillary Refill, Normal Inspection, Non-Tender, Tremors 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: Yes: Fully Oriented, Alert, Normal Response Integumentary: Yes: Normal Color, Diaphoresis Lymphatic: Yes: Within Normal Limits - Diagnostic (1) Walker as ambulation aid Current Visit: Yes Status: Chronic (2) Asthma Current Visit: Yes Status: Chronic (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 (4) Nicotine dependence Current Visit: Yes Status: Chronic Qualifiers: Nicotine product type: cigarettes Substance use status: uncomplicated Qualified Code(s): F17.210 - Nicotine dependence, cigarettes, uncomplicated (5) Opioid dependence with withdrawal Current Visit: Yes Status: Chronic (6) Alcohol dependence with uncomplicated withdrawal Current Visit: Yes Status: Chronic Cleared for Admission [facility] - Detox or Rehab [facility] Level of Care: Medically Managed Detox Regimen/Protocol: Methadone/Librium [facility] Breath Alcohol Content Breath Alcohol Content: 0 Urine Pregancy Test - Result Urine Test Results: Negative- NO Line Present Urine Drug Screen - Results Drug Screen Negative: No Urine Drug Screen Results: THC-Marijuana, CINTHIA-Cocaine, OPI-Opiates, BZO- Benzodiazepines, TCA-Tricyclic Antidepress, OXY-Oxycodone
[2017-04-02] MEDS ORDERED: MAGNESIUM CITRATE 300 ML BOTTLE PO PRN (13:04)
[2017-04-02] MEDS ORDERED: MENTHOL/PHENOL 1 EACH UD MM PRN (13:04)
[2017-04-02] MEDS ORDERED: LOPERAMIDE HCL 2 MG CAPSULE PO PRN (13:04)
[2017-04-02] MEDS ORDERED: ACETAMINOPHEN 325 MG TABLET (FP) PO PRN (13:04)
[2017-04-02] MEDS ORDERED: MAG HYDROX/AL HYDROX/SIMETH 30 ML UNIT-DOSE CUP PO PRN (13:04)
[2017-04-02] MEDS ORDERED: P-EPHED 60MG/TRIPROLIDI 2.5MG TABLET PO PRN (13:04)
[2017-04-02] MEDS ORDERED: MAGNESIUM HYDROX 2400MG/30ML ORAL SUSPENSION 30 ML CUP PO PRN (13:04)
[2017-04-02] MEDS ORDERED: guaiFENesin/D-METHORPHAN HB 10 ML UNIT-DOSE CUPS PO PRN (13:04)
[2017-04-02] MEDS ORDERED: chlordiazePOXIDE HCL 25 MG CAPSULE PO ONE (13:49)
[2017-04-02] MEDS ORDERED: METHADONE HCL 10 MG TABLET (FOR DETOX USE ONLY) PO ONE ×2 (13:49→23:00)
[2017-04-02] MEDS ORDERED: METHADONE HCL 10 MG TABLET (FOR DETOX USE ONLY) ONE (16:57)
[2017-04-02] MEDS: chlordiazePOXIDE HCL 25 MG CAPSULE PO SCH ×2 (17:00→22:10)
--- NOTE | 2017-04-02 17:22 | PN ---
BHS Progress Note Note: Pt. approached bedside for psychatric consultation. Pt. refused
[2017-04-02] MEDS: IBUPROFEN 400 MG TABLET (FP) PO PRN (18:18)
[2017-04-02] MEDS: chlordiazePOXIDE HCL 25 MG CAPSULE PO PRN (19:46)
[2017-04-02] MEDS: ALBUTEROL SO4 18 GM HFA INHALER IH PRN (21:45)
[2017-04-02] MEDS: THIAMINE HCL 100 MG TABLET (FP) PO SCH (22:10)
[2017-04-02] MEDS: RANITIDINE HCL 150 MG TABLET (FP) PO SCH (22:14)
[2017-04-02 23:33] LABS: URINE APPEARANCE CLOUDY; URINE BILIRUBIN NEGATIVE (NEGATIVE); URINE BLOOD NEGATIVE (NEGATIVE); URINE COLOR YELLOW; URINE GLUCOSE (UA) NEGATIVE (NEGATIVE); URINE KETONE NEGATIVE (NEGATIVE); URINE LEUK ESTERASE TRACE (NEGATIVE); URINE NITRITE POSITIVE (NEGATIVE); URINE PROTEIN NEGATIVE (NEGATIVE); URINE UROBILINOGEN NEGATIVE mg/dL (0.2-1.0)
[2017-04-03 00:01] LABS: URINE BACTERIA MANY /hpf (NONE SEEN); URINE RBC 1 /hpf (0-3); URINE WBC 9 /hpf (3-5)
[2017-04-03] MEDS: chlordiazePOXIDE HCL 25 MG CAPSULE PO PRN (02:50)
[2017-04-03] MEDS: IBUPROFEN 400 MG TABLET (FP) PO PRN ×2 (02:50→10:42)
[2017-04-03] MEDS: chlordiazePOXIDE HCL 25 MG CAPSULE PO SCH ×4 (05:50→22:21)
[2017-04-03] MEDS: NICOTINE POLACRILEX 4 MG GUM BUC PRN ×3 (06:54→14:39)
--- NOTE | 2017-04-03 07:50 | CONSULT ---
[facility] Psychiatric Consult - Data Date of interview: 04/03/17 Admission source: [facility] Identifying data: This is 52 years old female with history of Bipolar Disorder, ambulates with Cratches after recent fallin incident, intoxicated with Opioids, Alcohol, Cannabis, Cocaine, TCA, Xanax Substance Abuse History: - Smoking Cessation. Smoking history: Current every day smoker. Have you smoked in the past 12 months: Yes. Aproximately how many cigarettes per day: 6. Hx Chewing Tobacco Use: No. Initiated information on smoking cessation: Yes. 'Breaking Loose' booklet given: 04/02/17. - Substance & Tx. History. Hx Alcohol Use: No. Hx Substance Use: Yes. Substance Use Type : Cocaine, Heroin, Marijuana. Hx Substance Use Treatment: Yes ([facility] 01/2017 ). - Substances Abused. Heroin. Route: Inhalation. Frequency: Daily. Amount used: 4-5 BAGS. Age of first use: 14. Date of Last Use: 03/31/17. Crack. Route: Smoking. Frequency: Daily. Amount used: $30. Age of first use : 26. Date of Last Use: 03/31/17. Marijuana/Hashish. Route: Smoking. Frequency: Daily. Amount used: 1 BLUNT. Age of first use: 24. Date of Last Use: 03/30/17. Alcohol. Route: Oral. Frequency: Daily. Amount used: 1 PINT. Age of first use: 28. Date of Last Use: 03/30/17 Medical History: Asthma, LBP, Anemia history, Hip replacement history, Bariartric surgery history, muscle neuropathy Psychiatric History: Patient reports history of Bipolar DSisorder with unclear psychiatric hospitalization history, reports taking prior to admission: Risperdal 2mg po bid Physical/Sexual Abuse/Trauma History: Denies Additional Comment: Risperdal 2mg po bid Mental Status Exam - Mental Status Exam Alert and Oriented to: Person Cognitive Function: Fair Patient Appearance: Unkempt Mood: Apprehensive Affect: Mood Congruent Patient Behavior: Cooperative Speech Pattern: Appropriate Voice Loudness: Normal Thought Process: Goal Oriented Thought Disorder: Being Controlled Hallucinations: Denies Suicidal Ideation: Denies Homicidal Ideation: Denies Insight/Judgement: Fair Sleep: Difficulty falling asleep Appetite: Fair Muscle strength/Tone: Rigidity Gait/Station: Deferred Additional Comments: Risperdal 2mg po bid Psychiatric Findings - Problem List ([place] 1, 2,3) (1) Alcohol dependence with uncomplicated withdrawal Current Visit: Yes Status: Chronic (2) Nicotine dependence Current Visit: Yes Status: Chronic Qualifiers: Nicotine product type: cigarettes Substance use status: uncomplicated Qualified Code(s): F17.210 - Nicotine dependence, cigarettes, uncomplicated (3) Opioid dependence with withdrawal Current Visit: Yes Status: Chronic (4) Barbiturate abuse Current Visit: No Status: Acute (5) Bipolar disorder Current Visit: No Status: Chronic (6) Cannabis dependence Current Visit: No Status: Chronic (7) Cocaine dependence Current Visit: No Status: Chronic (8) Opioid dependence Current Visit: No Status: Chronic - Initial Treatment Plan Initial Treatment Plan: Risperdal 2mg po bid
[2017-04-03] MEDS ORDERED: METHADONE HCL 10 MG TABLET (FOR DETOX USE ONLY) PO SCH (10:00)
[2017-04-03 10:10] LABS: MCH 28.7 pg (25.7-33.7); MCHC 32.3 g/dl (32.0-36.0); MEAN CELL VOLUME 88.8 fl (80-96); MEAN PLT VOLUME 9.5 fl (7.5-11.1); PLATELET COUNT 278 K/MM3 (134-434); RDW 14.4 % (11.6-15.6); WHITE BLOOD COUNT 13.7 K/mm3 (4.0-10.0)
[2017-04-03 10:34] LABS: ALBUMIN 3.9 g/dl (3.4-5.0); ALK PHOS 121 U/L (45-117); ANION GAP 8 (8-16); BILIRUBIN,TOTAL 0.6 mg/dL (0.2-1.0); CALCIUM 9.5 mg/dL (8.5-10.1); CO2 27 mmol/L (21-32); CREATININE 0.7 mg/dL (0.55-1.02); GLUCOSE,RANDOM 114 mg/dL (74-106); SGOT/AST 11 U/L (15-37); SGPT/ALT 39 U/L (12-78)
[2017-04-03] MEDS: RANITIDINE HCL 150 MG TABLET (FP) PO SCH ×2 (10:39→22:21)
[2017-04-03] MEDS: risperiDONE 2 MG TABLET PO SCH ×2 (10:40→22:21)
[2017-04-03] MEDS: PRENATAL VITAMINS W/ FOLIC ACID TABLET (FP) PO SCH (10:40)
[2017-04-03] MEDS: NICOTINE 21 MG/24 HOURS TOPICAL PATCH TD SCH (10:40)
--- NOTE | 2017-04-03 11:14 | PN ---
[facility] CIWA - CIWA Score Nausea/Vomitin-No Nausea/No Vomiting Muscle Tremors: 4-Moderate,w/Arms Extend Anxiety: 3 Agitation: 3 Paroxysmal Sweats: 3 Orientation: 0-Oriented Tacttile Disturbances: 0-None Auditory Disturbances: 0-None Visual Disturbances: 0-None Headache: 1-Very Mild CIWA-Ar Total Score: 14 S COWS - Scale Resting Pulse: 1= [place] 81-100 Sweatin=Flushed/Facial Moisture Restless Observation: 1= Difficult to Sit Still Pupil Size: 0= Normal to Room Light Bone or Joint Aches: 2= Severe Diffuse Aches Runny Nose/ Eye Tearin= Runny Nose/Eyes GI Upset > 30mins: 0= None Tremor Observation of Outstretched Hands: 2= Slight Tremor Visible Yawning Observation: 2= >3x During Session Anxiety or Irritability: 2=Irritable/Anxious Goose Flesh Skin: 3=Piloerection COWS Score: 17 S Progress Note (SOAP) Subjective: body aches sweats shakes interrupted sleep irritable muscle cramps Objective: 04/03/17 11:09 Vital Signs Temperature 98 F 04/03/17 09:56 Pulse Rate 94 H 04/03/17 09:56 Respiratory Rate 20 04/03/17 09:56 Blood Pressure 127/86 04/03/17 09:56 O2 Sat by Pulse Oximetry (%) Laboratory Tests 04/02/17 04/03/17 04/03/17 21:45 06:00 06:00 WBC 13.7 H D RBC 5.03 D Hgb 14.4 D Hct 44.6 D MCV 88.8 MCH 28.7 MCHC 32.3 RDW 14.4 Plt Count 278 D MPV 9.5 Sodium 139 Potassium 4.1 Chloride 104 Carbon Dioxide 27 Anion Gap 8 BUN 12 Creatinine 0.7 Creat Clearance w eGFR > 60 Random Glucose 114 H Calcium 9.5 Total Bilirubin 0.6 D AST 11 L D ALT 39 D Alkaline Phosphatase 121 H D Total Protein 8.0 D Albumin 3.9 D Urine Color Yellow Urine Appearance Cloudy Urine pH 6.0 Ur Specific [place] 1.014 Urine Protein Negative Urine Glucose (UA) Negative Urine Ketones Negative Urine Blood Negative Urine Nitrite Positive Urine Bilirubin Negative Urine Urobilinogen Negative Urine WBC (Auto) 9 Urine RBC (Auto) 1 Ur Epithelial Cells Many Urine Bacteria Many aaox3 ambulating no acute distress provide a pt with pitcher Assessment: 04/03/17 11:10 withdrawal sx Plan: continue detox increase fluids flexirl prn
[2017-04-03] MEDS ORDERED: AMMONIUM LACTATE 12% LOTION 225 GM BOTTLE TP PRN (11:25)
--- NOTE | 2017-04-03 11:45 | EKG ---
Test Reason : Blood Pressure : / mmHG Vent. Rate : 091 BPM Atrial Rate : 091 BPM P-R Int : 144 ms QRS Dur : 096 ms QT Int : 368 ms P-R-T Axes : 077 -42 038 degrees QTc Int : 452 ms NORMAL SINUS RHYTHM LEFT AXIS DEVIATION CANNOT RULE OUT ANTERIOR INFARCT (CITED ON OR BEFORE 18-FEB-2017) ABNORMAL ECG WHEN COMPARED WITH ECG OF 18-FEB-2017 17:17, VENT. RATE HAS INCREASED BY 32 BPM NONSPECIFIC T WAVE ABNORMALITY HAS REPLACED INVERTED T WAVES IN INFERIOR LEADS NONSPECIFIC T WAVE ABNORMALITY, IMPROVED IN ANTEROLATERAL LEADS Confirmed by KATHARINE SANDOVAL MD ([id number]) on 04/03/2017 11:45:00 AM Referred By: ALINA HENSON Confirmed By:KATHARINE SANDOVAL MD
[2017-04-03] MEDS: CYCLOBENZAPRINE HCL 10 MG TABLET (FP) PO PRN ×2 (14:12→22:22)
[2017-04-03 14:45] LABS: URINE LEUK ESTERASE TRACE (NEGATIVE)
[2017-04-03] MEDS: ALBUTEROL SO4 18 GM HFA INHALER IH PRN (22:21)
[2017-04-03] MEDS: THIAMINE HCL 100 MG TABLET (FP) PO SCH (22:22)
[2017-04-04] MEDS: chlordiazePOXIDE HCL 25 MG CAPSULE PO SCH ×2 (05:31→10:35)
[2017-04-04] MEDS: IBUPROFEN 400 MG TABLET (FP) PO PRN (07:50)
[2017-04-04] MEDS: chlordiazePOXIDE HCL 25 MG CAPSULE PO PRN (07:50)
[2017-04-04] MEDS: CYCLOBENZAPRINE HCL 10 MG TABLET (FP) PO PRN ×2 (10:35→22:42)
[2017-04-04] MEDS: risperiDONE 2 MG TABLET PO SCH ×2 (10:35→22:41)
[2017-04-04] MEDS: PRENATAL VITAMINS W/ FOLIC ACID TABLET (FP) PO SCH (10:35)
[2017-04-04] MEDS: RANITIDINE HCL 150 MG TABLET (FP) PO SCH ×2 (10:35→22:41)
[2017-04-04] MEDS: METHADONE HCL 5 MG TABLET (FOR DETOX USE ONLY) PO SCH (10:35)
[2017-04-04] MEDS: NICOTINE 21 MG/24 HOURS TOPICAL PATCH TD SCH (10:37)
[2017-04-04] MEDS: NICOTINE POLACRILEX 4 MG GUM BUC PRN (10:39)
--- NOTE | 2017-04-04 10:40 | PN ---
[facility] CIWA - CIWA Score Nausea/Vomitin-No Nausea/No Vomiting Muscle Tremors: 4-Moderate,w/Arms Extend Anxiety: 3 Agitation: 2 Paroxysmal Sweats: 2 Orientation: 0-Oriented Tacttile Disturbances: 0-None Auditory Disturbances: 0-None Visual Disturbances: 0-None Headache: 0-None Present CIWA-Ar Total Score: 11 BHS COWS - Scale Resting Pulse: 1= [place] 81-100 Sweatin=Flushed/Facial Moisture Restless Observation: 1= Difficult to Sit Still Pupil Size: 0= Normal to Room Light Bone or Joint Aches: 2= Severe Diffuse Aches Runny Nose/ Eye Tearin= Nasal Congestion GI Upset > 30mins: 0= None Tremor Observation of Outstretched Hands: 2= Slight Tremor Visible Yawning Observation: 2= >3x During Session Anxiety or Irritability: 2=Irritable/Anxious Goose Flesh Skin: 3=Piloerection COWS Score: 16 S Progress Note (SOAP) Subjective: interrupted sleep shakes sweats body aches agitation Objective: 04/04/17 10:41 Vital Signs Temperature 97.7 F 04/04/17 10:00 Pulse Rate 99 H 04/04/17 10:00 Respiratory Rate 20 04/04/17 10:00 Blood Pressure 120/76 04/04/17 10:00 O2 Sat by Pulse Oximetry (%) Laboratory Tests 04/02/17 04/03/17 04/03/17 21:45 06:00 06:00 WBC 13.7 H D RBC 5.03 D Hgb 14.4 D Hct 44.6 D MCV 88.8 MCH 28.7 MCHC 32.3 RDW 14.4 Plt Count 278 D MPV 9.5 Sodium 139 Potassium 4.1 Chloride 104 Carbon Dioxide 27 Anion Gap 8 BUN 12 Creatinine 0.7 Creat Clearance w eGFR > 60 Random Glucose 114 H Calcium 9.5 Total Bilirubin 0.6 D AST 11 L D ALT 39 D Alkaline Phosphatase 121 H D Total Protein 8.0 D Albumin 3.9 D Urine Color Yellow Urine Appearance Cloudy Urine pH 6.0 Ur Specific [place] 1.014 Urine Protein Negative Urine Glucose (UA) Negative Urine Ketones Negative Urine Blood Negative Urine Nitrite Positive Urine Bilirubin Negative Urine Urobilinogen Negative Ur Leukocyte Esterase Trace H Urine WBC (Auto) 9 Urine RBC (Auto) 1 Ur Epithelial Cells Many Urine Bacteria Many RPR Titer 04/03/17 06:00 WBC RBC Hgb Hct MCV MCH MCHC RDW Plt Count MPV Sodium Potassium Chloride Carbon Dioxide Anion Gap BUN Creatinine Creat Clearance w eGFR Random Glucose Calcium Total Bilirubin AST ALT Alkaline Phosphatase Total Protein Albumin Urine Color Urine Appearance Urine pH Ur Specific [place] Urine Protein Urine Glucose (UA) Urine Ketones Urine Blood Urine Nitrite Urine Bilirubin Urine Urobilinogen Ur Leukocyte Esterase Urine WBC (Auto) Urine RBC (Auto) Ur Epithelial Cells Urine Bacteria RPR Titer Nonreactive aaox3 ambulating no acute distress Assessment: 04/04/17 10:42 withdrawal sx Plan: continue detox increase fluids
[2017-04-04] MEDS: chlordiazePOXIDE 5 MG CAPSULE PO SCH ×2 (17:33→22:42)
[2017-04-04] MEDS: THIAMINE HCL 100 MG TABLET (FP) PO SCH (22:41)
[2017-04-04] MEDS: ALBUTEROL SO4 18 GM HFA INHALER IH PRN (22:41)
[2017-04-05] MEDS: chlordiazePOXIDE 5 MG CAPSULE PO SCH ×2 (06:32→10:06)
[2017-04-05] MEDS: IBUPROFEN 400 MG TABLET (FP) PO PRN ×2 (06:32→21:29)
[2017-04-05] MEDS: CYCLOBENZAPRINE HCL 10 MG TABLET (FP) PO PRN ×2 (06:39→23:28)
[2017-04-05] MEDS: METHADONE HCL 5 MG TABLET (FOR DETOX USE ONLY) PO SCH (10:06)
[2017-04-05] MEDS: PRENATAL VITAMINS W/ FOLIC ACID TABLET (FP) PO SCH (10:06)
[2017-04-05] MEDS: NICOTINE POLACRILEX 4 MG GUM BUC PRN (10:06)
[2017-04-05] MEDS: RANITIDINE HCL 150 MG TABLET (FP) PO SCH ×2 (10:06→23:28)
[2017-04-05] MEDS: risperiDONE 2 MG TABLET PO SCH ×2 (10:06→23:28)
[2017-04-05] MEDS: NICOTINE 21 MG/24 HOURS TOPICAL PATCH TD SCH (10:06)
--- NOTE | 2017-04-05 10:56 | PN ---
BHS Progress Note (SOAP) Subjective: Sweating,interrupted sleep,restless. Objective: 04/05/17 10:53 Vital Signs - 8 hr 04/05/17 04/05/17 04/05/17 03:30 07:20 10:00 Temperature 96.4 F L 98.2 F Pulse Rate 98 H 113 H Respiratory 18 20 16 Rate Blood Pressure 150/80 122/65 Laboratory Tests 04/02/17 04/03/17 04/03/17 21:45 06:00 06:00 WBC 13.7 H D RBC 5.03 D Hgb 14.4 D Hct 44.6 D MCV 88.8 MCH 28.7 MCHC 32.3 RDW 14.4 Plt Count 278 D MPV 9.5 Sodium 139 Potassium 4.1 Chloride 104 Carbon Dioxide 27 Anion Gap 8 BUN 12 Creatinine 0.7 Creat Clearance w eGFR > 60 Random Glucose 114 H Calcium 9.5 Total Bilirubin 0.6 D AST 11 L D ALT 39 D Alkaline Phosphatase 121 H D Total Protein 8.0 D Albumin 3.9 D Urine Color Yellow Urine Appearance Cloudy Urine pH 6.0 Ur Specific [place] 1.014 Urine Protein Negative Urine Glucose (UA) Negative Urine Ketones Negative Urine Blood Negative Urine Nitrite Positive Urine Bilirubin Negative Urine Urobilinogen Negative Ur Leukocyte Esterase Trace H Urine WBC (Auto) 9 Urine RBC (Auto) 1 Ur Epithelial Cells Many Urine Bacteria Many RPR Titer 04/03/17 06:00 WBC RBC Hgb Hct MCV MCH MCHC RDW Plt Count MPV Sodium Potassium Chloride Carbon Dioxide Anion Gap BUN Creatinine Creat Clearance w eGFR Random Glucose Calcium Total Bilirubin AST ALT Alkaline Phosphatase Total Protein Albumin Urine Color Urine Appearance Urine pH Ur Specific [place] Urine Protein Urine Glucose (UA) Urine Ketones Urine Blood Urine Nitrite Urine Bilirubin Urine Urobilinogen Ur Leukocyte Esterase Urine WBC (Auto) Urine RBC (Auto) Ur Epithelial Cells Urine Bacteria RPR Titer Nonreactive u/a shows many bacteria with + Nitrite Assessment: 04/05/17 10:54 UTI Withdrawal sx. Plan: Continue detox Levaquin 500mg x 5 days
[2017-04-05] MEDS: LEVOFLOXACIN 500 MG TABLET (FP) PO SCH (13:02)
[2017-04-05] MEDS: chlordiazePOXIDE HCL 10 MG CAPSULE PO SCH ×2 (17:22→23:29)
[2017-04-05] MEDS: THIAMINE HCL 100 MG TABLET (FP) PO SCH (23:28)
[2017-04-06] MEDS: chlordiazePOXIDE HCL 10 MG CAPSULE PO SCH ×2 (05:27→10:42)
[2017-04-06] MEDS: IBUPROFEN 400 MG TABLET (FP) PO PRN ×3 (05:28→22:37)
[2017-04-06] MEDS: CYCLOBENZAPRINE HCL 10 MG TABLET (FP) PO PRN ×2 (05:29→22:37)
[2017-04-06] MEDS ORDERED: METHADONE HCL 10 MG TABLET (FOR DETOX USE ONLY) PO SCH (10:00)
[2017-04-06] MEDS: RANITIDINE HCL 150 MG TABLET (FP) PO SCH ×2 (10:41→22:37)
[2017-04-06] MEDS: LEVOFLOXACIN 500 MG TABLET (FP) PO SCH (10:42)
[2017-04-06] MEDS: PRENATAL VITAMINS W/ FOLIC ACID TABLET (FP) PO SCH (10:42)
[2017-04-06] MEDS: risperiDONE 2 MG TABLET PO SCH ×2 (10:42→22:38)
[2017-04-06] MEDS: NICOTINE 21 MG/24 HOURS TOPICAL PATCH TD SCH (10:42)
--- NOTE | 2017-04-06 11:24 | PN ---
BHS Progress Note (SOAP) Subjective: sweating restlessness Objective: 04/06/17 11:24 Vital Signs Temperature 95.5 F L 04/06/17 10:39 Pulse Rate 115 H 04/06/17 10:39 Respiratory Rate 18 04/06/17 10:39 Blood Pressure 121/75 04/06/17 10:39 O2 Sat by Pulse Oximetry (%) Laboratory Last Values WBC 13.7 K/mm3 (4.0-10.0) H D 04/03/17 06:00 RBC 5.03 M/mm3 (3.60-5.2) D 04/03/17 06:00 Hgb 14.4 GM/dL (10.7-15.3) D 04/03/17 06:00 Hct 44.6 % (32.4-45.2) D 04/03/17 06:00 MCV 88.8 fl (80-96) 04/03/17 06:00 MCH 28.7 pg (25.7-33.7) 04/03/17 06:00 MCHC 32.3 g/dl (32.0-36.0) 04/03/17 06:00 RDW 14.4 % (11.6-15.6) 04/03/17 06:00 Plt Count 278 K/MM3 (134-434) D 04/03/17 06:00 MPV 9.5 fl (7.5-11.1) 04/03/17 06:00 Sodium 139 mmol/L (136-145) 04/03/17 06:00 Potassium 4.1 mmol/L (3.5-5.1) 04/03/17 06:00 Chloride 104 mmol/L (98-107) 04/03/17 06:00 Carbon Dioxide 27 mmol/L (21-32) 04/03/17 06:00 Anion Gap 8 (8-16) 04/03/17 06:00 BUN 12 mg/dL (7-18) 04/03/17 06:00 Creatinine 0.7 mg/dL (0.55-1.02) 04/03/17 06:00 Creat Clearance w eGFR > 60 (>60) 04/03/17 06:00 Random Glucose 114 mg/dL (74-106) H 04/03/17 06:00 Calcium 9.5 mg/dL (8.5-10.1) 04/03/17 06:00 Total Bilirubin 0.6 mg/dL (0.2-1.0) D 04/03/17 06:00 AST 11 U/L (15-37) L D 04/03/17 06:00 ALT 39 U/L (12-78) D 04/03/17 06:00 Alkaline Phosphatase 121 U/L (45-117) H D 04/03/17 06:00 Total Protein 8.0 g/dl (6.4-8.2) D 04/03/17 06:00 Albumin 3.9 g/dl (3.4-5.0) D 04/03/17 06:00 Urine Color Yellow 04/02/17 21:45 Urine Appearance Cloudy 04/02/17 21:45 Urine pH 6.0 (5.0-8.0) 04/02/17 21:45 Ur Specific [place] 1.014 (1.001-1.035) 04/02/17 21:45 Urine Protein Negative (NEGATIVE) 04/02/17 21:45 Urine Glucose (UA) Negative (NEGATIVE) 04/02/17 21:45 Urine Ketones Negative (NEGATIVE) 04/02/17 21:45 Urine Blood Negative (NEGATIVE) 04/02/17 21:45 Urine Nitrite Positive (NEGATIVE) 04/02/17 21:45 Urine Bilirubin Negative (NEGATIVE) 04/02/17 21:45 Urine Urobilinogen Negative mg/dL (0.2-1.0) 04/02/17 21:45 Ur Leukocyte Esterase Trace (NEGATIVE) H 04/02/17 21:45 Urine WBC (Auto) 9 /hpf (3-5) 04/02/17 21:45 Urine RBC (Auto) 1 /hpf (0-3) 04/02/17 21:45 Ur Epithelial Cells Many /HPF (FEW) 04/02/17 21:45 Urine Bacteria Many /hpf (NONE SEEN) 04/02/17 21:45 RPR Titer Nonreactive (NONREACTIVE) 04/03/17 06:00 lab noted Assessment: 04/06/17 11:25 mild withdrawal sx Plan: observation with detox regimen continue
[2017-04-06] MEDS: hydrOXYzine PAMOATE 50 MG CAPSULE (FP) PO PRN ×2 (15:26→22:36)
[2017-04-06] MEDS: THIAMINE HCL 100 MG TABLET (FP) PO SCH (23:17)
[2017-04-07] MEDS: IBUPROFEN 400 MG TABLET (FP) PO PRN ×2 (05:49→10:56)
[2017-04-07] MEDS: hydrOXYzine PAMOATE 50 MG CAPSULE (FP) PO PRN (05:50)
[2017-04-07] MEDS ORDERED: METHADONE HCL 5 MG TABLET (FOR DETOX USE ONLY) PO SCH (06:00)
[2017-04-07 10:09] VITALS: BP 96/67; PULSE 82; TEMP 97.7
--- NOTE | 2017-04-07 10:47 | DS ---
[facility] Detox Discharge Summary Admission Date: 04/02/17 Discharge Date: 04/07/17 - History Present History: Alcohol Dependence, Cannabis Dependence, Cocaine Dependence, Opioid Dependence - Physical Exam Results Vital Signs: Vital Signs Temperature 97.7 F 04/07/17 10:00 Pulse Rate 82 04/07/17 10:00 Respiratory Rate 18 04/07/17 10:00 Blood Pressure 96/67 04/07/17 10:00 O2 Sat by Pulse Oximetry (%) - Treatment Hospital Course: Detox Protocol Followed, Detoxed Safely, Responded well, Discharged Condition Good, Rehab Referral Accepted - Medication Discharge Medications: Ambulatory Orders Albuterol Sulfate Inhaler - [Ventolin HFA Inhaler -] 2 inh IH Q4H PRN #1 inhaler 02/23/16 Ranitidine [Zantac -] 150 mg PO BID #60 tab 02/25/17 Risperidone [Risperdal -] 2 mg PO BID #60 tablet 04/03/17 Levofloxacin [Levaquin -] 500 mg PO DAILY #7 tablet 04/07/17 - Diagnosis (1) Walker as ambulation aid Current Visit: Yes Status: Chronic (2) Asthma Current Visit: Yes Status: Chronic (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 (4) Nicotine dependence Current Visit: Yes Status: Chronic Qualifiers: Nicotine product type: cigarettes Substance use status: uncomplicated Qualified Code(s): F17.210 - Nicotine dependence, cigarettes, uncomplicated (5) Opioid dependence with withdrawal Current Visit: Yes Status: Chronic (6) Alcohol dependence with uncomplicated withdrawal Current Visit: Yes Status: Chronic - AMA Did Patient Leave Against Medical Advice: No ([facility])
[2017-04-07] MEDS: PRENATAL VITAMINS W/ FOLIC ACID TABLET (FP) PO SCH (10:52)
[2017-04-07] MEDS: RANITIDINE HCL 150 MG TABLET (FP) PO SCH (10:53)
[2017-04-07] MEDS: risperiDONE 2 MG TABLET PO SCH (10:53)
[2017-04-07] MEDS: LEVOFLOXACIN 500 MG TABLET (FP) PO SCH (10:53)
== END 2017-04-07 11:05 | disposition home or self-care (01) | DRG 773 ==
LOC: YASAS 09:19 → Y6N 12:33
PROVIDERS: ADMIT Internal Medicine; ATTEND Internal Medicine
PROC: HZ2ZZZZ Detoxification Services for Substance Abuse Treatment (ICD-10-PCS; principal; 2017-04-02)
DX: F11.20 Opioid dependence, uncomplicated (principal); F10.230 Alcohol dependence with withdrawal, uncomplicated; F14.20 Cocaine dependence, uncomplicated; F12.20 Cannabis dependence, uncomplicated; F17.210 Nicotine dependence, cigarettes, uncomplicated; F13.10 Sedative, hypnotic or anxiolytic abuse, uncomplicated; F31.9 Bipolar disorder, unspecified; G60.0 Hereditary motor and sensory neuropathy; J45.909 Unspecified asthma, uncomplicated; R26.89 Other abnormalities of gait and mobility; Z99.89 Dependence on other enabling machines and devices
CPT/HCPCS: 36415; 80053; 81003; 81015; 85027; 86593; 93005; 93010

== ENCOUNTER 2017-07-29 10:50 | Inpatient (IN) | payer BC ==
[2017-07-29 13:05] VITALS: BMI 26.1
--- NOTE | 2017-07-29 15:19 | HP ---
COWS - Scale Resting Pulse: 1= [place] 81-100 Sweatin= Chills/Flushing Restless Observation: 1= Difficult to Sit Still Pupil Size: 1= Pupils >than Normal Bone or Joint Aches: 1= Mild Discomfort Runny Nose/ Eye Tearin= Nasal Congestion GI Upset > 30mins: 2= Nausea/Diarrhea Tremor Observation: 2= Slight Tremor Visible Yawning Observation: 1= 1-2x During Session Anxiety or Irritability: 2=Irritable/Anxious Goose Flesh Skin: 3=Piloerection COWS Score: 16 CIWA Score - CIWA Score Nausea/Vomitin-Int. Nausea w/Dry Heave Muscle Tremors: 3 Anxiety: 3 Agitation: 3 Paroxysmal Sweats: 1-Minimal Palms Moist Orientation: 0-Oriented Tacttile Disturbances: 0-None Auditory Disturbances: 0-None Visual Disturbances: 0-None Headache: 1-Very Mild CIWA-Ar Total Score: 15 Admission ROS [facility] - [facility] Chief Complaint: heorin, alcohol and benzodiazepine withdrawal sx Allergies/Adverse Reactions: Allergies Allergy/AdvReac Type Severity Reaction Status Date / Time Sulfa (Sulfonamide Allergy Intermediate Hives Verified 07/29/17 13:19 Antibiotics) [Sulfa(Sulfonamide Antibiotics)] History of Present Illness: 52 yo f with h/o opioid use disorder, alcohol and benzodiazepine dependence with withdrawal sx when she does not use requesting inapient etoxificaion from the above. PMHX s/p bariatric suregery, psych dx - no taking meds at thsi time - anxiety, depression and insomnia, bialteral arthritis, no h/o sieuresz no h/o DTS, no SI at this tiem. Exam Limitations: No Limitations - Ebola screening Have you traveled outside of the country in the last 21 days: No Have you had contact with anyone from an Ebola affected area: No Have you been sick,other than usual withdrawal symptoms: No Do you have a fever: No - Review of Systems Constitutional: Chills, Diaphoresis, Night Sweats, Changes in sleep, Unintentional Wgt. Loss EENT: reports: Tearing, Nose Congestion Respiratory: reports: No Symptoms reported Cardiac: reports: No Symptoms Reported GI: reports: Diarrhea, Nausea, Poor Appetite, Poor Fluid Intake, Vomiting, Indigestion, Abdominal cramping : reports: No Symptoms Reported Musculoskeletal: reports: Joint Pain (bialteral hip pain), Muscle Pain, Neck Pain (withdrawal sx), Joint Stiffness Integumentary: reports: Flushing, Sweating Neuro: reports: Headache, Numbness, Tingling, Tremors Endocrine: reports: Increased Thirst Hematology: reports: No Symptoms Reported Psychiatric: reports: Judgement Intact, Mood/Affect Appropiate, Orientated x3, Anxious, Depressed Other Systems: Reviewed and Negative Patient History - Patient Medical History Hx Anemia: Yes (d/t gastric bypass) Hx Asthma: Yes Hx Chronic Obstructive Pulmonary Disease (COPD): No Hx Cancer: No Hx Cardiac Disorders: No Hx Congestive Heart Failure: No Hx Hypertension: Yes (Not on meds.) Hx Hypercholesterolemia: No Hx Pacemaker: No HX Cerebrovascular Accident: No Hx Seizures: No Hx Dementia: No Hx Diabetes: No Hx Gastrointestinal Disorders: Yes (Acid reflux from hx of gastric bypass.) Hx Liver Disease: No Hx Genitourinary Disorders: No Hx Sexually Transmitted Disorders: No Hx Renal Disease (ESRD): No Hx Thyroid Disease: No Hx Human Immunodeficiency Virus (HIV): No (negative) Hx Hepatitis C: No (negative) Hx Depression: Yes Hx Suicide Attempt: No (no si at this time) Hx Bipolar Disorder: Yes (not taking meds) Hx Schizophrenia: No - Patient Surgical History Past Surgical History: Yes Hx Neurologic Surgery: No Hx Cataract Extraction: No Hx Cardiac Surgery: No Hx Lung Surgery: No Hx Breast Surgery: No Hx Breast Biopsy: No Hx Abdominal Surgery: No Hx Appendectomy: No Hx Cholecystectomy: Yes (SX--10 YRS AGO) Hx Section: Yes (X1--16 YRS AGO) Hx Orthopedic Surgery: Yes (HIP SX--X5 DUE TO HIP ANOMALY) Other Surgical History: bariatric surgery-sleeve in 2014 Anesthesia Reaction: No - PPD History Previous Implant?: Yes Documented Results: Negative w/proof Implanted On Prior R Admission?: Yes Date: 02/20/17 Results: 0 MM - Reproductive History Patient is a Female of Child Bearing Age (11 -55 yrs old): Yes Last Menstrual Period: 10/26/10 Patient : No - Smoking Cessation Smoking history: Former smoker Have you smoked in the past 12 months: Yes Aproximately how many cigarettes per day: 6 If you are a former smoker, when did you quit?: 3 MONTHS AGO Hx Chewing Tobacco Use: No Initiated information on smoking cessation: Yes 'Breaking Loose' booklet given: 07/29/17 - Substance & Tx. History Hx Alcohol Use: Yes Hx Substance Use: Yes Substance Use Type: Alcohol, Cocaine, Heroin, Marijuana, Opiates, Prescribed, Tranquilizers Hx Substance Use Treatment: Yes ([facility]) - Substances Abused Heroin Route: Inhalation Frequency: Daily Amount used: 4-5 BAGS Age of first use: 49 Date of Last Use: 07/28/17 Alcohol Route: Oral Frequency: Daily Amount used: 1 AND 1/2 PINTS OF RUM Age of first use: 34 Date of Last Use: 07/29/17 Cocaine Route: Smoking Frequency: Daily Amount used: $40 Age of first use: 46 Date of Last Use: 07/28/17 Marijuana/Hashish Route: Smoking Frequency: Daily Amount used: $5 Age of first use: 14 Date of Last Use: 07/28/17 Family Disease History - Family Disease History Family Disease History: Diabetes: Mother, Heart Disease: Mother, Respiratory: Mother, Brother Admission Physical Exam [facility] - Vital Signs Vital Signs: Vital Signs - 24 hr 07/29/17 13:02 Temperature 98.8 F Pulse Rate 87 Respiratory 18 Rate Blood Pressure 148/86 - Physical General Appearance: Yes: No Apparent Distress, Nourished, Appropriately Dressed , Disheveled, Mild Distress, Tremorous, Irritable, Sweating, Anxious HEENTM: Yes: EOMI, Hearing grossly Normal, Normocephalic, Normal Voice, MARIANELA, Pharynx Normal, Nasal Congestion, Rhinorrhea Respiratory: Yes: Within Normal Limits, Chest Non-Tender, Lungs Clear, Normal Breath Sounds, No Respiratory Distress, No Accessory Muscle Use Neck: Yes: Within Normal Limits, No masses,lesions,Nodules, Supple, Trachea in good position Breast: Yes: Breast Exam Deferred Cardiology: Yes: Within Normal Limits, Regular Rhythm, Regular Rate, S1, S2 Abdominal: Yes: Within Normal Limits, Normal Bowel Sounds, Non Tender, Flat, Soft, Increased Bowel Sounds Genitourinary: Yes: Within Normal Limits Back: Yes: Within Normal Limits, Normal Inspection Musculoskeletal: Yes: full range of Motion, Pelvis Stable, Other (ambulates with walker because of bilateral hip pain) Extremities: Yes: Normal Capillary Refill, Normal Inspection, Normal Range of Motion, Tremors 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: Yes: ict project manager II-XII NML intact, Fully Oriented, Alert, Motor Strength 5/5, Normal Response Integumentary: Yes: Normal Color, Warm, Diaphoresis, Moist, Other (poor skin turgor, dry skin) Lymphatic: Yes: Within Normal Limits - Addiitonal Findings: withdrawal sx - Diagnostic (1) Alcohol dependence with uncomplicated withdrawal Current Visit: No Status: Chronic (2) Asthma Current Visit: No Status: Chronic (3) Bipolar disorder Current Visit: No Status: Chronic (4) Cannabis dependence Current Visit: No Status: Chronic (5) Cocaine dependence Current Visit: No Status: Chronic (6) H/O gastric bypass Current Visit: No Status: Chronic (7) H/O: iron deficiency anemia Current Visit: No Status: Chronic (8) Hip joint replacement by other means Current Visit: No Status: Chronic (9) Nicotine dependence Current Visit: No Status: Chronic Qualifiers: Nicotine product type: cigarettes Substance use status: uncomplicated Qualified Code(s): F17.210 - Nicotine dependence, cigarettes, uncomplicated (10) Opioid dependence Current Visit: No Status: Chronic (11) Opioid dependence with withdrawal Current Visit: No Status: Chronic (12) Walker as ambulation aid Current Visit: No Status: Chronic (13) Sedative, hypnotic or anxiolytic dependence with withdrawal, uncomplicated Current Visit: Yes Status: Acute (14) Dehydration Current Visit: Yes Status: Acute Cleared for Admission [facility] - Detox or Rehab [facility] Level of Care: Medically Managed Detox Regimen/Protocol: Methadone/Librium [facility] Breath Alcohol Content Breath Alcohol Content: 0 Urine Pregancy Test - Result Urine Test Results: Negative- NO Line Present Urine Drug Screen - Results Drug Screen Negative: No Urine Drug Screen Results: THC-Marijuana, CINTHIA-Cocaine, OPI-Opiates, BZO- Benzodiazepines, MTD-Methadone, TCA-Tricyclic Antidepress
[2017-07-29] MEDS ORDERED: MAGNESIUM CITRATE 300 ML BOTTLE PO PRN (15:23)
[2017-07-29] MEDS ORDERED: MAG HYDROX/AL HYDROX/SIMETH 30 ML UNIT-DOSE CUP PO PRN (15:23)
[2017-07-29] MEDS ORDERED: MAGNESIUM HYDROX 2400MG/30ML ORAL SUSPENSION 30 ML CUP PO PRN (15:23)
[2017-07-29] MEDS ORDERED: MENTHOL/PHENOL 1 EACH UD MM PRN (15:23)
[2017-07-29] MEDS ORDERED: guaiFENesin/D-METHORPHAN HB 10 ML UNIT-DOSE CUPS PO PRN (15:23)
[2017-07-29] MEDS ORDERED: P-EPHED 60MG/TRIPROLIDI 2.5MG TABLET PO PRN (15:23)
[2017-07-29] MEDS ORDERED: LOPERAMIDE HCL 2 MG CAPSULE PO PRN (15:23)
[2017-07-29] MEDS ORDERED: ALBUTEROL SO4 18 GM HFA INHALER IH PRN (15:24)
[2017-07-29] MEDS ORDERED: AMMONIUM LACTATE 12% LOTION 225 GM BOTTLE TP PRN (15:31)
[2017-07-29] MEDS ORDERED: COLLOIDAL OATMEAL 1 BAR EACH TP PRN (15:31)
[2017-07-29] MEDS ORDERED: METHADONE HCL 10 MG TABLET (FOR DETOX USE ONLY) PO ONE ×2 (16:00→23:00)
[2017-07-29] MEDS ORDERED: chlordiazePOXIDE HCL 25 MG CAPSULE PO ONE (16:00)
[2017-07-29] MEDS: CYCLOBENZAPRINE HCL 10 MG TABLET (FP) PO SCH ×2 (17:41→22:41)
[2017-07-29] MEDS: chlordiazePOXIDE HCL 25 MG CAPSULE PO SCH ×2 (17:42→22:41)
--- NOTE | 2017-07-29 19:27 | CONSULT ---
[facility] Psychiatric Consult - Data Date of interview: 07/29/17 Admission source: [facility] Identifying data: Pt. is a 52 year old female, , mother of one, unemployed, living with her daughter and receiving financial assistance from [employer]. This is one of multiple admissions for patient. Pt. admitted to detox for cannabis, cocaine, opiate, and benzodiazepine dependence. Substance Abuse History: Following information confirmed with : - Smoking Cessation. Smoking history: Former smoker. Have you smoked in the past 12 months: Yes. Aproximately how many cigarettes per day: 6. If you are a former smoker, when did you quit?: 3 MONTHS AGO. Hx Chewing Tobacco Use: No. Initiated information on smoking cessation: Yes. 'Breaking Loose' booklet given: 07/29/17. - Substance & Tx. History. Hx Alcohol Use: Yes. Hx Substance Use: Yes. Substance Use Type: Alcohol, Cocaine, Heroin, Marijuana, Opiates, Prescribed, Tranquilizers. Hx Substance Use Treatment: Yes ([facility]). - Substances Abused. Heroin. Route: Inhalation. Frequency: Daily. Amount used: 4-5 BAGS. Age of first use: 49. Date of Last Use: . Alcohol. Route: Oral. Frequency: Daily. Amount used: 1 AND 1/2 PINTS OF RUM. Age of first use: 34. Date of Last Use: 07/29/17. Cocaine. Route : Smoking. Frequency: Daily. Amount used: $40. Age of first use: 46. Date of Last Use: 07/28/17. Marijuana/Hashish. Route: Smoking. Frequency: Daily. Amount used: $5. Age of first use: 14. Date of Last Use: 07/28/17 Medical History: Anemia r/t gastric bypass, Asthma, Hypertension, Acid reflux from h/x of gastric bypass. Psychiatric History: Patient's first contact with a psychiatrist was approximately 27 years ago [facility]. Pt. reports multiple psychiatric hospitalizations, most recently at a hospital in [place] 5 years ago. Pt. has a diagnosis of paranoid schizophrenia and reports nonadherence to medication and outpatient treatment. Pt. reports last taking medications when she was in detox in 03/2017. Patient was prescribed risperdal 2mg BID. Pt. denies h/o suicide attempt. Pt. denies suicidal and homicidal ideation. Physical/Sexual Abuse/Trauma History: Denies. Mental Status Exam - Mental Status Exam Alert and Oriented to: Time, Place, Person Cognitive Function: Good Patient Appearance: Unkempt Mood: Withdrawn, Euthymic Affect: Mood Congruent Patient Behavior: Fatigued, Cooperative Speech Pattern: Delayed Voice Loudness: Moderately Soft/Quiet Thought Process: Goal Oriented Thought Disorder: Not Present Hallucinations: Denies Suicidal Ideation: Denies Homicidal Ideation: Denies Insight/Judgement: Poor Sleep: Poorly Appetite: Fair Muscle strength/Tone: Normal Gait/Station: Other (Pt. uses a rolling walker to ambulate.) Psychiatric Findings - Problem List ([place] 1, 2,3) (1) Paranoid schizophrenia Current Visit: Yes Status: Chronic Comment: Self reports. nonadherence to medication. Requesting to restart risperdal medication. (2) Sedative, hypnotic or anxiolytic dependence with withdrawal, uncomplicated Current Visit: Yes Status: Acute (3) Alcohol dependence with uncomplicated withdrawal Current Visit: Yes Status: Acute (4) Cannabis dependence Current Visit: Yes Status: Chronic (5) Cocaine dependence Current Visit: Yes Status: Chronic - Initial Treatment Plan Initial Treatment Plan: Psychoeducation provided. Detoxification in progress. As per patient's request, patient is to be restarted on risperdal 1mg BID. Benefits and side effects discussed. Verbal consent given. Will continue to monitor.
[2017-07-29] MEDS: chlordiazePOXIDE HCL 25 MG CAPSULE PO PRN (20:46)
[2017-07-29] MEDS ORDERED: MELATONIN 5 MG TABLETS PO PRN (22:00)
[2017-07-29] MEDS: THIAMINE HCL 100 MG TABLET (FP) PO SCH (22:41)
[2017-07-29] MEDS: RANITIDINE HCL 150 MG TABLET (FP) PO SCH (22:41)
[2017-07-29] MEDS: risperiDONE 1 MG TABLET (FP) PO SCH (22:41)
[2017-07-30] MEDS: chlordiazePOXIDE HCL 25 MG CAPSULE PO PRN (01:56)
[2017-07-30 04:58] LABS: URINE APPEARANCE CLOUDY; URINE BILIRUBIN NEGATIVE (<2.0 mg/dL); URINE BLOOD NEGATIVE (NEGATIVE); URINE COLOR YELLOW; URINE GLUCOSE (UA) NEGATIVE (NEGATIVE); URINE KETONE 1+ (NEGATIVE); URINE NITRITE NEGATIVE (NEGATIVE); URINE PROTEIN NEGATIVE (NEGATIVE); URINE UROBILINOGEN NEGATIVE mg/dL (0.2-1.0)
[2017-07-30 05:29] LABS: URINE LEUK ESTERASE 1+ (NEGATIVE)
[2017-07-30] MEDS: chlordiazePOXIDE HCL 25 MG CAPSULE PO SCH (05:41)
[2017-07-30] MEDS: CYCLOBENZAPRINE HCL 10 MG TABLET (FP) PO SCH ×3 (05:42→22:31)
[2017-07-30 05:51] LABS: EPI CELLS FEW /HPF (FEW); URINE BACTERIA RARE /hpf (NONE SEEN); URINE HYALINE CAST 2 /lpf; URINE MUCUS RARE
--- NOTE | 2017-07-30 09:38 | PN ---
[facility] CIWA - CIWA Score Nausea/Vomitin-Mild Nausea/No Vomiting Muscle Tremors: 4-Moderate,w/Arms Extend Anxiety: 4-Mod. Anxious/Guarded Agitation: 4-Moderately Restless Paroxysmal Sweats: 1-Minimal Palms Moist Orientation: 0-Oriented Tacttile Disturbances: 0-None Auditory Disturbances: 0-None Visual Disturbances: 0-None Headache: 0-None Present CIWA-Ar Total Score: 14 [facility] COWS - Scale Resting Pulse: 1= [place] 81-100 Sweatin= Chills/Flushing Restless Observation: 1= Difficult to Sit Still Pupil Size: 0= Normal to Room Light Bone or Joint Aches: 2= Severe Diffuse Aches Runny Nose/ Eye Tearin= Nasal Congestion GI Upset > 30mins: 2= Nausea/Diarrhea Tremor Observation of Outstretched Hands: 2= Slight Tremor Visible Yawning Observation: 2= >3x During Session Anxiety or Irritability: 2=Irritable/Anxious Goose Flesh Skin: 0=Smooth Skin COWS Score: 14 S Progress Note (SOAP) Subjective: sweat tremor anxiety restlessness patient wants valium for alcohol detox patient reported that the librium does not work for her Objective: 07/30/17 09:42 Vital Signs Temperature 97.9 F 07/30/17 09:40 Pulse Rate 100 H 07/30/17 09:40 Respiratory Rate 18 07/30/17 09:40 Blood Pressure 112/72 07/30/17 09:40 O2 Sat by Pulse Oximetry (%) Laboratory Last Values Urine Color Yellow 07/30/17 01:00 Urine Appearance Cloudy 07/30/17 01:00 Urine pH 5.0 (5.0-8.0) 07/30/17 01:00 Ur Specific [place] 1.014 (1.001-1.035) 07/30/17 01:00 Urine Protein Negative (NEGATIVE) 07/30/17 01:00 Urine Glucose (UA) Negative (NEGATIVE) 07/30/17 01:00 Urine Ketones 1+ (NEGATIVE) H 07/30/17 01:00 Urine Blood Negative (NEGATIVE) 07/30/17 01:00 Urine Nitrite Negative (NEGATIVE) 07/30/17 01:00 Urine Bilirubin Negative (<2.0 mg/dL) 07/30/17 01:00 Urine Urobilinogen Negative mg/dL (0.2-1.0) 07/30/17 01:00 Ur Leukocyte Esterase 1+ (NEGATIVE) H 07/30/17 01:00 Urine WBC (Auto) 4 /hpf (3-5) 07/30/17 01:00 Urine RBC (Auto) 2 /hpf (0-3) 07/30/17 01:00 Ur Epithelial Cells Few /HPF (FEW) 07/30/17 01:00 Urine Bacteria Rare /hpf (NONE SEEN) 07/30/17 01:00 Hyaline Casts 2 /lpf 07/30/17 01:00 Urine Mucus Rare 07/30/17 01:00 lab noted Assessment: 07/30/17 09:42 withdrawal sx wants valium for alcohol detox Plan: continue detox
[2017-07-30] MEDS ORDERED: diazePAM 5 MG TABLET PO SCH ×2 (10:00→14:00)
[2017-07-30] MEDS ORDERED: METHADONE HCL 10 MG TABLET (FOR DETOX USE ONLY) PO SCH (10:00)
[2017-07-30 10:08] LABS: HEMATOCRIT 40.8 % (32.4-45.2); HEMOGLOBIN 13.5 GM/dL (10.7-15.3); MCH 29.5 pg (25.7-33.7); MCHC 33.1 g/dl (32.0-36.0); MEAN CELL VOLUME 89.4 fl (80-96); MEAN PLT VOLUME 9.5 fl (7.5-11.1); PLATELET COUNT 268 K/MM3 (134-434); RBC 4.57 M/mm3 (3.60-5.2); RDW 14.3 % (11.6-15.6); WHITE BLOOD COUNT 11.3 K/mm3 (4.0-10.0)
[2017-07-30] MEDS: RANITIDINE HCL 150 MG TABLET (FP) PO SCH ×2 (10:25→22:34)
[2017-07-30] MEDS: risperiDONE 1 MG TABLET (FP) PO SCH ×2 (10:25→22:32)
[2017-07-30] MEDS: PRENATAL VITAMINS W/ FOLIC ACID TABLET (FP) PO SCH (10:25)
[2017-07-30] MEDS: diazePAM 5 MG TABLET PO PRN ×2 (10:29→17:31)
[2017-07-30 10:47] LABS: CHLORIDE 107 mmol/L (98-107); POTASSIUM 3.8 mmol/L (3.5-5.1); SODIUM 136 mmol/L (136-145)
[2017-07-30 11:07] LABS: ALBUMIN 4.2 g/dl (3.4-5.0); ALK PHOS 92 U/L (45-117); ANION GAP 1 (8-16); BILIRUBIN,TOTAL 0.6 mg/dL (0.2-1.0); BLOOD UREA NITROGEN 12 mg/dL (7-18); CALCIUM 9.5 mg/dL (8.5-10.1); CO2 28 mmol/L (21-32); CREATININE 0.9 mg/dL (0.55-1.02); GLUCOSE,RANDOM 120 mg/dL (74-106); SGOT/AST 18 U/L (15-37); SGPT/ALT 22 U/L (12-78)
[2017-07-30] MEDS: diazePAM 5 MG TABLET PO SCH ×2 (13:07→22:33)
--- NOTE | 2017-07-30 13:07 | EKG ---
Test Reason : Blood Pressure : / mmHG Vent. Rate : 084 BPM Atrial Rate : 084 BPM P-R Int : 144 ms QRS Dur : 098 ms QT Int : 388 ms P-R-T Axes : 077 -32 029 degrees QTc Int : 458 ms NORMAL SINUS RHYTHM LEFT AXIS DEVIATION ABNORMAL ECG WHEN COMPARED WITH ECG OF 02-APR-2017 17:11, NO SIGNIFICANT CHANGE WAS FOUND Confirmed by OBINNA BEAULIEU MD ([id number]) on 07/30/2017 1:06:45 PM Referred By: Confirmed By:OBINNA BEAULIEU MD
[2017-07-30] MEDS: ACETAMINOPHEN 325 MG TABLET (FP) PO PRN (15:21)
[2017-07-30] MEDS ORDERED: chlordiazePOXIDE HCL 25 MG CAPSULE PO SCH (17:00)
[2017-07-30] MEDS: hydrOXYzine PAMOATE 50 MG CAPSULE (FP) PO PRN (20:35)
[2017-07-30] MEDS: THIAMINE HCL 100 MG TABLET (FP) PO SCH (22:34)
[2017-07-31] MEDS: diazePAM 5 MG TABLET PO PRN ×2 (00:39→06:01)
[2017-07-31] MEDS: CYCLOBENZAPRINE HCL 10 MG TABLET (FP) PO SCH ×3 (06:00→22:29)
--- NOTE | 2017-07-31 09:10 | PN ---
[facility] CIWA - CIWA Score Nausea/Vomitin Muscle Tremors: 3 Anxiety: 3 Agitation: 3 Paroxysmal Sweats: 3 Orientation: 0-Oriented Tacttile Disturbances: 1-Very Mild Itch/Numbness Auditory Disturbances: 0-None Visual Disturbances: 0-None Headache: 0-None Present CIWA-Ar Total Score: 16 BHS COWS - Scale Resting Pulse: 1= [place] 81-100 Sweatin= Chills/Flushing Restless Observation: 1= Difficult to Sit Still Pupil Size: 1= Pupils >than Normal Bone or Joint Aches: 1= Mild Discomfort Runny Nose/ Eye Tearin= Nasal Congestion GI Upset > 30mins: 2= Nausea/Diarrhea Tremor Observation of Outstretched Hands: 2= Slight Tremor Visible Yawning Observation: 1= 1-2x During Session Anxiety or Irritability: 2=Irritable/Anxious Goose Flesh Skin: 3=Piloerection COWS Score: 16 [facility] Progress Note (SOAP) Subjective: nasuea, sweats, itnerrupted sleep, anxiety, trmeors, goosebumps, body aches Objective: 07/31/17 09:09 Vital Signs - 24 hr 07/30/17 07/30/17 07/30/17 09:40 14:09 18:57 Temperature 97.9 F 97.5 F L 97.9 F Pulse Rate 100 H 91 H 80 Respiratory 18 16 20 Rate Blood Pressure 112/72 121/78 98/60 07/30/17 07/31/17 07/31/17 23:08 03:30 06:27 Temperature 98.1 F 97.7 F Pulse Rate 95 H 80 Respiratory 18 18 18 Rate Blood Pressure 99/62 109/70 Laboratory Tests 07/30/17 07/30/17 07/30/17 01:00 06:00 06:00 WBC 11.3 H RBC 4.57 Hgb 13.5 Hct 40.8 MCV 89.4 MCH 29.5 MCHC 33.1 RDW 14.3 Plt Count 268 MPV 9.5 Sodium 136 Potassium 3.8 Chloride 107 Carbon Dioxide 28 Anion Gap 1 L BUN 12 Creatinine 0.9 Creat Clearance w eGFR > 60 Random Glucose 120 H Calcium 9.5 Total Bilirubin 0.6 AST 18 ALT 22 Alkaline Phosphatase 92 Total Protein 8.0 Albumin 4.2 Urine Color Yellow Urine Appearance Cloudy Urine pH 5.0 Ur Specific [place] 1.014 Urine Protein Negative Urine Glucose (UA) Negative Urine Ketones 1+ H Urine Blood Negative Urine Nitrite Negative Urine Bilirubin Negative Urine Urobilinogen Negative Ur Leukocyte Esterase 1+ H Urine WBC (Auto) 4 Urine RBC (Auto) 2 Ur Epithelial Cells Few Urine Bacteria Rare Hyaline Casts 2 Urine Mucus Rare Assessment: 07/31/17 09:09 adam navarrox - cotmesfin detox, obtain cane for patient, fluids, encourage ambualtion sympotmatic relief of withdrawal
[2017-07-31] MEDS ORDERED: diazePAM 5 MG TABLET PO SCH (10:00)
--- NOTE | 2017-07-31 10:13 | PN ---
Psychiatric Progress Note Vital Signs: Vital Signs Period Temp Pulse Resp BP Sys/Stevens Pulse Ox Last 24 Hr 97.5 F-98.1 F 80-95 16-20 98-121/60-78 Date of Session: 07/31/17 Chief Complaint:: Insomnia, deoressed mood HPI: Patient reports not informing psychietrist on admission day, patient states she was taking prior to admission : Zoloft 50mg poqd. Seroquel 100mg po qhs Current Medications: Active Medications Generic Name Dose Route Start Last Admin Trade Name Freq PRN Reason Stop Dose Admin Acetaminophen 650 mg 07/29/17 15:23 07/30/17 15:21 Tylenol - PO 650 mg Q4H PRN Administration FEVER Al Hydroxide/Mg Hydroxide 30 ml 07/29/17 15:23 07/30/17 19:17 Mylanta Oral Suspension - PO 30 ml Q6H PRN Administration DYSPEPSIA Albuterol Sulfate 2 puff 07/29/17 15:24 Ventolin Hfa Inhaler - IH Q4H PRN ASTHMA Colloidal Oatmeal 1 applic 07/29/17 15:31 07/29/17 22:42 Aveeno Soap - TP 1 applic DAILY PRN Administration HYGEINE Cyclobenzaprine HCl 10 mg 07/29/17 15:30 07/31/17 06:00 Flexeril - PO 10 mg TID PAIGE Administration Diazepam 5 mg 07/31/17 10:00 Valium - PO 08/01/17 22:01 BID PAIGE Diazepam 10 mg 07/30/17 09:34 07/31/17 06:01 Valium - PO 08/02/17 09:33 10 mg Q4H PRN Administration WITHDRAWAL(CONT SUBST) Diazepam 5 mg 08/02/17 10:00 Valium - PO 08/02/17 10:01 DAILY PAIGE Eucalyptus/Menthol/Phenol/Sorbitol 1 each 07/29/17 15:23 Cepastat Lozenge - MM Q4H PRN SORE THROAT Guaifenesin 10 ml 07/29/17 15:23 Robitussin Dm - PO Q6H PRN COUGH Hydroxyzine Pamoate 50 mg 07/29/17 15:23 07/30/17 20:35 Vistaril - PO 50 mg Q4H PRN Administration AGITATION Ibuprofen 400 mg 07/29/17 15:23 Motrin - PO Q6H PRN PAIN LEVEL 4-6 Lactic Acid 1 applic 07/29/17 15:31 07/30/17 05:43 Lac-Hydrin 12 TP 1 applic BID PRN Administration DRY SKIN Loperamide HCl 4 mg 07/29/17 15:23 Imodium - PO Q6H PRN DIARRHEA Magnesium Citrate 300 ml 07/29/17 15:23 Citroma - PO Q48H PRN CONSTIPATION Magnesium Hydroxide 30 ml 07/29/17 15:23 Milk Of Magnesia - PO DAILY PRN CONSTIPATION Melatonin 5 mg 07/29/17 22:00 Melatonin PO HS PRN INSOMNIA Methadone HCl 15 mg 07/31/17 10:00 Dolophine - PO 08/01/17 10:01 DAILY PAIGE Methadone HCl 5 mg 08/03/17 06:00 Dolophine - PO 08/03/17 06:01 DAILY@0600 PAIGE Methadone HCl 10 mg 08/02/17 10:00 Dolophine - PO 08/02/17 10:01 DAILY [facility] Multivit/Folic Acid/Iron 1 tab 07/30/17 10:00 07/30/17 10:25 Vitamins (Sjr) - PO 1 tab DAILY PAIGE Administration Pseudoephedrine/Triprolidine 1 combo 07/29/17 15:23 Actifed - PO TID PRN NASAL CONGESTION Ranitidine HCl 150 mg 07/29/17 22:00 07/30/17 22:34 Zantac - PO 150 mg BID PAIGE Administration Risperidone 1 mg 07/29/17 22:00 07/30/17 22:32 Risperdal - PO 1 mg BID PAIGE Administration Thiamine HCl 100 mg 07/29/17 22:00 07/30/17 22:34 Vitamin B1 - PO 100 mg HS PAIGE Administration Medication(s) Change(s): Zoloft 50mg poqd. Seroquel 100mg po qhs Provider note:: Chart revewed, patient evaluated at bedside, patient reports being depressed, asking medications for depression and insomnia, reports good response on Seroquel 100mg po qhs and Zoloft 50mg poqd.Patient denies suicidal and homicidal ideation and motivated to restart preadmission medications Mental Status Exam - Mental Status Exam Alert and Oriented to: Person Cognitive Function: Fair Patient Appearance: Well Groomed Mood: Sad Affect: Mood Congruent Patient Behavior: Cooperative Speech Pattern: Appropriate Voice Loudness: Mildly Soft/Quiet Thought Process: Goal Oriented Thought Disorder: Being Controlled Hallucinations: Denies Suicidal Ideation: Denies Homicidal Ideation: Denies Insight/Judgement: Fair Sleep: Difficulty falling asleep Appetite: Weight gain Muscle strength/Tone: Moderate Hypotonicity Gait/Station: Deferred Additional Comments: Zoloft 50mg poqd. Seroquel 100mg po qhs Psychiatric Treatment Plan - Problem List (1) Alcohol dependence with uncomplicated withdrawal Current Visit: Yes (2) Sedative, hypnotic or anxiolytic dependence with withdrawal, uncomplicated Current Visit: Yes (3) Cannabis dependence Current Visit: Yes (4) Cocaine dependence Current Visit: Yes (5) Paranoid schizophrenia Current Visit: Yes Comment: Self reports. nonadherence to medication. Requesting to restart risperdal medication. (6) Bipolar disorder Current Visit: No (7) Nicotine dependence Current Visit: No Qualifiers: Nicotine product type: cigarettes Substance use status: uncomplicated Qualified Code(s): F17.210 - Nicotine dependence, cigarettes, uncomplicated (8) Opioid dependence with withdrawal Current Visit: No Initial treatment plan: Zoloft 50mg poqd. Seroquel 100mg po qhs
[2017-07-31] MEDS: METHADONE HCL 5 MG TABLET (FOR DETOX USE ONLY) PO SCH (10:18)
[2017-07-31] MEDS: risperiDONE 1 MG TABLET (FP) PO SCH ×2 (10:19→22:29)
[2017-07-31] MEDS: RANITIDINE HCL 150 MG TABLET (FP) PO SCH ×2 (10:19→22:29)
[2017-07-31] MEDS: PRENATAL VITAMINS W/ FOLIC ACID TABLET (FP) PO SCH (10:19)
[2017-07-31] MEDS: diazePAM 5 MG TABLET PO SCH ×2 (10:19→22:29)
[2017-07-31] MEDS: SERTRALINE HCL 50 MG TABLET (FP) PO SCH (10:53)
[2017-07-31] MEDS ORDERED: chlordiazePOXIDE 5 MG CAPSULE PO SCH (17:00)
[2017-07-31] MEDS ORDERED: QUEtiapine FUMARATE 100 MG TABLET (FP) PO SCH (22:00)
[2017-07-31] MEDS: THIAMINE HCL 100 MG TABLET (FP) PO SCH (22:29)
[2017-07-31] MEDS: IBUPROFEN 400 MG TABLET (FP) PO PRN (22:30)
[2017-08-01] MEDS: CYCLOBENZAPRINE HCL 10 MG TABLET (FP) PO SCH (06:26)
[2017-08-01] MEDS ORDERED: hydrOXYzine PAMOATE 50 MG CAPSULE (FP) PO ONE (09:20)
[2017-08-01] MEDS ORDERED: ONDANSETRON *ODT* 4 MG TABLET SL ONE (09:20)
--- NOTE | 2017-08-01 09:20 | PN ---
[facility] Progress Note (SOAP) Subjective: nause, anxiety, interrupted lseep, sweats Objective: 08/01/17 09:19 Vital Signs - 24 hr 07/31/17 07/31/17 07/31/17 10:00 10:29 15:14 Temperature 98.1 F 98.1 F 97.9 F Pulse Rate 101 H 101 H 94 H Respiratory 20 18 16 Rate Blood Pressure 109/69 134/87 105/61 07/31/17 08/01/17 08/01/17 18:10 03:30 06:00 Temperature 98.8 F 98.1 F Pulse Rate 102 H 87 Respiratory 16 18 20 Rate Blood Pressure 109/78 140/88 Laboratory Tests 07/30/17 07/30/17 07/30/17 01:00 06:00 06:00 WBC 11.3 H RBC 4.57 Hgb 13.5 Hct 40.8 MCV 89.4 MCH 29.5 MCHC 33.1 RDW 14.3 Plt Count 268 MPV 9.5 Sodium 136 Potassium 3.8 Chloride 107 Carbon Dioxide 28 Anion Gap 1 L BUN 12 Creatinine 0.9 Creat Clearance w eGFR > 60 Random Glucose 120 H Calcium 9.5 Total Bilirubin 0.6 AST 18 ALT 22 Alkaline Phosphatase 92 Total Protein 8.0 Albumin 4.2 Urine Color Yellow Urine Appearance Cloudy Urine pH 5.0 Ur Specific [place] 1.014 Urine Protein Negative Urine Glucose (UA) Negative Urine Ketones 1+ H Urine Blood Negative Urine Nitrite Negative Urine Bilirubin Negative Urine Urobilinogen Negative Ur Leukocyte Esterase 1+ H Urine WBC (Auto) 4 Urine RBC (Auto) 2 Ur Epithelial Cells Few Urine Bacteria Rare Hyaline Casts 2 Urine Mucus Rare RPR Titer 07/30/17 06:00 WBC RBC Hgb Hct MCV MCH MCHC RDW Plt Count MPV Sodium Potassium Chloride Carbon Dioxide Anion Gap BUN Creatinine Creat Clearance w eGFR Random Glucose Calcium Total Bilirubin AST ALT Alkaline Phosphatase Total Protein Albumin Urine Color Urine Appearance Urine pH Ur Specific [place] Urine Protein Urine Glucose (UA) Urine Ketones Urine Blood Urine Nitrite Urine Bilirubin Urine Urobilinogen Ur Leukocyte Esterase Urine WBC (Auto) Urine RBC (Auto) Ur Epithelial Cells Urine Bacteria Hyaline Casts Urine Mucus RPR Titer Nonreactive Assessment: 08/01/17 09:20 withdrawal sx - con detox, symptomatic relief with vistaril and zofran ordered
[2017-08-01] MEDS: diazePAM 5 MG TABLET PO SCH ×2 (10:27→22:43)
[2017-08-01] MEDS: SERTRALINE HCL 50 MG TABLET (FP) PO SCH (10:28)
[2017-08-01] MEDS: risperiDONE 1 MG TABLET (FP) PO SCH ×2 (10:28→22:43)
[2017-08-01] MEDS: METHADONE HCL 5 MG TABLET (FOR DETOX USE ONLY) PO SCH (10:28)
[2017-08-01] MEDS: PRENATAL VITAMINS W/ FOLIC ACID TABLET (FP) PO SCH (10:28)
[2017-08-01] MEDS: RANITIDINE HCL 150 MG TABLET (FP) PO SCH ×2 (10:28→22:43)
[2017-08-01] MEDS: CYCLOBENZAPRINE HCL 5 MG TABLET PO SCH ×2 (13:09→22:43)
[2017-08-01] MEDS: IBUPROFEN 400 MG TABLET (FP) PO PRN (14:33)
[2017-08-01] MEDS ORDERED: chlordiazePOXIDE HCL 10 MG CAPSULE PO SCH (17:00)
[2017-08-01] MEDS: ACETAMINOPHEN 325 MG TABLET (FP) PO PRN (17:58)
[2017-08-01] MEDS: THIAMINE HCL 100 MG TABLET (FP) PO SCH (22:43)
[2017-08-01] MEDS: QUEtiapine FUMARATE 50 MG TABLET PO SCH (22:43)
[2017-08-02] MEDS: CYCLOBENZAPRINE HCL 5 MG TABLET PO SCH ×3 (06:05→22:27)
[2017-08-02] MEDS: hydrOXYzine PAMOATE 50 MG CAPSULE (FP) PO PRN ×2 (06:08→17:13)
[2017-08-02] MEDS ORDERED: METHADONE HCL 10 MG TABLET (FOR DETOX USE ONLY) PO SCH (10:00)
[2017-08-02] MEDS ORDERED: diazePAM 5 MG TABLET PO SCH (10:00)
[2017-08-02] MEDS: RANITIDINE HCL 150 MG TABLET (FP) PO SCH ×2 (10:56→22:28)
[2017-08-02] MEDS: risperiDONE 1 MG TABLET (FP) PO SCH ×2 (10:56→22:28)
[2017-08-02] MEDS: SERTRALINE HCL 50 MG TABLET (FP) PO SCH (10:56)
[2017-08-02] MEDS: PRENATAL VITAMINS W/ FOLIC ACID TABLET (FP) PO SCH (10:56)
[2017-08-02] MEDS: IBUPROFEN 400 MG TABLET (FP) PO PRN ×2 (12:25→22:32)
--- NOTE | 2017-08-02 15:10 | PN ---
S Progress Note (SOAP) Subjective: Bilateral leg pain, generalizes weakness and sleep interruption Objective: 08/02/17 15:09 Vital Signs 08/02/17 10:00 Temperature 97.7 F Pulse Rate 98 H Respiratory 18 Rate Blood Pressure 145/84 Laboratory Last Values WBC 11.3 K/mm3 (4.0-10.0) H 07/30/17 06:00 RBC 4.57 M/mm3 (3.60-5.2) 07/30/17 06:00 Hgb 13.5 GM/dL (10.7-15.3) 07/30/17 06:00 Hct 40.8 % (32.4-45.2) 07/30/17 06:00 MCV 89.4 fl (80-96) 07/30/17 06:00 MCH 29.5 pg (25.7-33.7) 07/30/17 06:00 MCHC 33.1 g/dl (32.0-36.0) 07/30/17 06:00 RDW 14.3 % (11.6-15.6) 07/30/17 06:00 Plt Count 268 K/MM3 (134-434) 07/30/17 06:00 MPV 9.5 fl (7.5-11.1) 07/30/17 06:00 Sodium 136 mmol/L (136-145) 07/30/17 06:00 Potassium 3.8 mmol/L (3.5-5.1) 07/30/17 06:00 Chloride 107 mmol/L (98-107) 07/30/17 06:00 Carbon Dioxide 28 mmol/L (21-32) 07/30/17 06:00 Anion Gap 1 (8-16) L 07/30/17 06:00 BUN 12 mg/dL (7-18) 07/30/17 06:00 Creatinine 0.9 mg/dL (0.55-1.02) 07/30/17 06:00 Creat Clearance w eGFR > 60 (>60) 07/30/17 06:00 Random Glucose 120 mg/dL (74-106) H 07/30/17 06:00 Calcium 9.5 mg/dL (8.5-10.1) 07/30/17 06:00 Total Bilirubin 0.6 mg/dL (0.2-1.0) 04/04/18 06:00 AST 18 U/L (15-37) 07/30/17 06:00 ALT 22 U/L (12-78) 07/30/17 06:00 Alkaline Phosphatase 92 U/L (45-117) 07/30/17 06:00 Ammonia 35.56 umol/L (11-32) H 08/02/17 08:00 Total Protein 8.0 g/dl (6.4-8.2) 07/30/17 06:00 Albumin 4.2 g/dl (3.4-5.0) 07/30/17 06:00 Urine Color Yellow 07/30/17 01:00 Urine Appearance Cloudy 07/30/17 01:00 Urine pH 5.0 (5.0-8.0) 07/30/17 01:00 Ur Specific [place] 1.014 (1.001-1.035) 07/30/17 01:00 Urine Protein Negative (NEGATIVE) 07/30/17 01:00 Urine Glucose (UA) Negative (NEGATIVE) 07/30/17 01:00 Urine Ketones 1+ (NEGATIVE) H 07/30/17 01:00 Urine Blood Negative (NEGATIVE) 07/30/17 01:00 Urine Nitrite Negative (NEGATIVE) 07/30/17 01:00 Urine Bilirubin Negative (<2.0 mg/dL) 07/30/17 01:00 Urine Urobilinogen Negative mg/dL (0.2-1.0) 07/30/17 01:00 Ur Leukocyte Esterase 1+ (NEGATIVE) H 07/30/17 01:00 Urine WBC (Auto) 4 /hpf (3-5) 07/30/17 01:00 Urine RBC (Auto) 2 /hpf (0-3) 07/30/17 01:00 Ur Epithelial Cells Few /HPF (FEW) 07/30/17 01:00 Urine Bacteria Rare /hpf (NONE SEEN) 07/30/17 01:00 Hyaline Casts 2 /lpf 07/30/17 01:00 Urine Mucus Rare 07/30/17 01:00 RPR Titer Nonreactive (NONREACTIVE) 07/30/17 06:00 Labs noted Assessment: 08/02/17 15:09 Withdrawal sx Plan: Continue detox
[2017-08-02] MEDS: QUEtiapine FUMARATE 50 MG TABLET PO SCH (22:28)
[2017-08-02] MEDS: THIAMINE HCL 100 MG TABLET (FP) PO SCH (22:28)
[2017-08-02] MEDS ORDERED: IBUPROFEN 400 MG TABLET (FP) PO ONE (23:17)
[2017-08-03] MEDS ORDERED: METHADONE HCL 5 MG TABLET (FOR DETOX USE ONLY) PO SCH (06:00)
[2017-08-03] MEDS: CYCLOBENZAPRINE HCL 5 MG TABLET PO SCH (06:04)
[2017-08-03] MEDS ORDERED: NAPROXEN 500 MG TABLET (FP) PO SCH (10:00)
[2017-08-03] MEDS ORDERED: diazePAM 5 MG TABLET PO SCH (10:00)
--- NOTE | 2017-08-03 10:10 | DS ---
[facility] Detox Discharge Summary Admission Date: 07/29/17 Discharge Date: 08/03/17 - History Present History: Alcohol Dependence, Opioid Dependence - Physical Exam Results Vital Signs: Vital Signs Temperature 97.7 F 08/03/17 06:00 Pulse Rate 78 08/03/17 06:00 Respiratory Rate 18 08/03/17 06:00 Blood Pressure 114/71 08/03/17 06:00 O2 Sat by Pulse Oximetry (%) Pertinent Admission Physical Exam Findings: withdrawal sx Laboratory Last Values WBC 11.3 K/mm3 (4.0-10.0) H 07/30/17 06:00 RBC 4.57 M/mm3 (3.60-5.2) 07/30/17 06:00 Hgb 13.5 GM/dL (10.7-15.3) 07/30/17 06:00 Hct 40.8 % (32.4-45.2) 07/30/17 06:00 MCV 89.4 fl (80-96) 07/30/17 06:00 MCH 29.5 pg (25.7-33.7) 07/30/17 06:00 MCHC 33.1 g/dl (32.0-36.0) 07/30/17 06:00 RDW 14.3 % (11.6-15.6) 07/30/17 06:00 Plt Count 268 K/MM3 (134-434) 07/30/17 06:00 MPV 9.5 fl (7.5-11.1) 07/30/17 06:00 Sodium 136 mmol/L (136-145) 07/30/17 06:00 Potassium 3.8 mmol/L (3.5-5.1) 07/30/17 06:00 Chloride 107 mmol/L (98-107) 07/30/17 06:00 Carbon Dioxide 28 mmol/L (21-32) 07/30/17 06:00 Anion Gap 1 (8-16) L 07/30/17 06:00 BUN 12 mg/dL (7-18) 07/30/17 06:00 Creatinine 0.9 mg/dL (0.55-1.02) 07/30/17 06:00 Creat Clearance w eGFR > 60 (>60) 07/30/17 06:00 Random Glucose 120 mg/dL (74-106) H 07/30/17 06:00 Calcium 9.5 mg/dL (8.5-10.1) 07/30/17 06:00 Total Bilirubin 0.6 mg/dL (0.2-1.0) 07/30/17 06:00 AST 18 U/L (15-37) 07/30/17 06:00 ALT 22 U/L (12-78) 07/30/17 06:00 Alkaline Phosphatase 92 U/L (45-117) 07/30/17 06:00 Ammonia 35.56 umol/L (11-32) H 08/02/17 08:00 Total Protein 8.0 g/dl (6.4-8.2) 07/30/17 06:00 Albumin 4.2 g/dl (3.4-5.0) 07/30/17 06:00 Urine Color Yellow 07/30/17 01:00 Urine Appearance Cloudy 07/30/17 01:00 Urine pH 5.0 (5.0-8.0) 07/30/17 01:00 Ur Specific [place] 1.014 (1.001-1.035) 07/30/17 01:00 Urine Protein Negative (NEGATIVE) 07/30/17 01:00 Urine Glucose (UA) Negative (NEGATIVE) 07/30/17 01:00 Urine Ketones 1+ (NEGATIVE) H 07/30/17 01:00 Urine Blood Negative (NEGATIVE) 07/30/17 01:00 Urine Nitrite Negative (NEGATIVE) 07/30/17 01:00 Urine Bilirubin Negative (<2.0 mg/dL) 07/30/17 01:00 Urine Urobilinogen Negative mg/dL (0.2-1.0) 07/30/17 01:00 Ur Leukocyte Esterase 1+ (NEGATIVE) H 07/30/17 01:00 Urine WBC (Auto) 4 /hpf (3-5) 07/30/17 01:00 Urine RBC (Auto) 2 /hpf (0-3) 07/30/17 01:00 Ur Epithelial Cells Few /HPF (FEW) 07/30/17 01:00 Urine Bacteria Rare /hpf (NONE SEEN) 07/30/17 01:00 Hyaline Casts 2 /lpf 07/30/17 01:00 Urine Mucus Rare 07/30/17 01:00 RPR Titer Nonreactive (NONREACTIVE) 07/30/17 06:00 lab noted - Treatment Hospital Course: Detox Protocol Followed, Detoxed Safely, Responded well, Discharged Condition Good, Rehab Referral Accepted Patient has Accepted a Rehab Referral to: [facility] - Medication Discharge Medications: Ambulatory Orders Quetiapine Fumarate [Seroquel -] 50 mg PO HS #30 tablet 07/31/17 Sertraline HCl [Zoloft -] 50 mg PO DAILY #30 tablet 07/31/17 Risperidone [Risperdal -] 1 mg PO BID #60 tablet 08/01/17 Albuterol Sulfate Inhaler - [Ventolin HFA Inhaler -] 2 inh IH Q4H PRN #1 inhaler 08/03/17 Ranitidine [Zantac -] 150 mg PO BID #60 tab 08/03/17 - Diagnosis (1) Alcohol dependence with uncomplicated withdrawal Current Visit: Yes Status: Acute (2) Bipolar disorder Current Visit: Yes Status: Suspected Qualifiers: Active/Remission status: in partial remission Most recent bipolar episode type: mixed Qualified Code(s): F31.77 - Bipolar disorder, in partial remission , most recent episode mixed (3) Opioid dependence with withdrawal Current Visit: Yes Status: Acute (4) Asthma Current Visit: Yes Status: Chronic (5) Nicotine dependence Current Visit: Yes Status: Acute Qualifiers: Nicotine product type: cigarettes Substance use status: in withdrawal Qualified Code(s): F17.213 - Nicotine dependence, cigarettes, with withdrawal - AMA Did Patient Leave Against Medical Advice: No
[2017-08-03 10:55] VITALS: BP 132/81; PULSE 91; TEMP 98.2
== END 2017-08-03 10:35 | disposition home or self-care (01) | DRG 773 ==
LOC: YASAS 10:50 → Y6N 15:20
PROVIDERS: ADMIT Internal Medicine; ATTEND Internal Medicine
PROC: HZ2ZZZZ Detoxification Services for Substance Abuse Treatment (ICD-10-PCS; principal; 2017-07-29)
DX: F11.23 Opioid dependence with withdrawal (principal); F13.230 Sedative, hypnotic or anxiolytic dependence with withdrawal, uncomplicated; F10.230 Alcohol dependence with withdrawal, uncomplicated; F17.213 Nicotine dependence, cigarettes, with withdrawal; F14.20 Cocaine dependence, uncomplicated; F12.20 Cannabis dependence, uncomplicated; F20.0 Paranoid schizophrenia; F31.77 Bipolar disorder, in partial remission, most recent episode mixed; J45.909 Unspecified asthma, uncomplicated; E86.0 Dehydration; Z86.2 Personal history of diseases of the blood and blood-forming organs and certain disorders involving the immune mechanism; Z91.14 Patient's other noncompliance with medication regimen; R26.89 Other abnormalities of gait and mobility; Z99.89 Dependence on other enabling machines and devices
CPT/HCPCS: 36415; 80053; 81003; 81015; 82140; 85027; 86593; 93005; 93010; J2794; Q0162

== ENCOUNTER 2018-10-08 12:53 | Inpatient (IN) | payer BC ==
[2018-10-08 18:11] VITALS: BMI 22.8
--- NOTE | 2018-10-08 19:09 | HP ---
COWS - Scale Resting Pulse: 0= HI 80 or Below Sweatin=Flushed/Facial Moisture Restless Observation: 1= Difficult to Sit Still Pupil Size: 2= Moderately Dilated (Pupils = 4 mm) Bone or Joint Aches: 1= Mild Discomfort (back pain) Runny Nose/ Eye Tearin= Nasal Congestion GI Upset > 30mins: 2= Nausea/Diarrhea (No diarrhea) Tremor Observation: 2= Slight Tremor Visible Yawning Observation: 0= None Anxiety or Irritability: 1=Feels Anxious/Irritable Goose Flesh Skin: 0=Smooth Skin COWS Score: 12 CIWA Score Nausea/Vomitin Muscle Tremors: 4-Moderate,w/Arms Extend Anxiety: 2 Agitation: 2 Paroxysmal Sweats: 3 (Increased facial moisture) Orientation: 0-Oriented Tacttile Disturbances: 1-Very Mild Itch/Numbness Auditory Disturbances: 0-None Visual Disturbances: 0-None Headache: 0-None Present CIWA-Ar Total Score: 15 - Admission Criteria OAS Guidelines: Admission for Medically Managed Detox: Requires at least one of the followin. CIWA greater than 12 2. Seizures within the past 24 hours 3. Delirium tremens within the past 24 hours 4. Hallucinations within the past 24 hours 5. Acute intervention needed for co occurring medical disorder 6. Acute intervention needed for co occurring psychiatric disorder 7. Severe withdrawal that cannot be handled at a lower level of care (continued vomiting, continued diarrhea, abnormal vital signs) requiring intravenous medication and/or fluids 8. Patient presents the following: CIWA greater than 12 Admission Criteria Met: Admission criteria met Admission ROS [facility] Chief Complaint: Heroin and alcohol withdrawal. Allergies/Adverse Reactions: Allergies Allergy/AdvReac Type Severity Reaction Status Date / Time Sulfa (Sulfonamide Allergy Intermediate Hives Verified 10/08/18 17:56 Antibiotics) [Sulfa(Sulfonamide Antibiotics)] History of Present Illness: 53 yof presents w/ alcohol and opioid withdrawal symptoms and requesting detox. States sober until 3 months ago when relapsed. Alcohol use begn at age 24. Current use of 1 pint liquor daily x 3 months. Heroin use began at age 42. Current use of 3-4 bags daily x 3 months. Intranasal. Illicit methadone use 5 days ago. Unsure of dose - approx 20 mg. Cocaine use began at age 18. Approx $40/day. Marijuana use began at age 13. Approx $5 /day. Nicotine use began at age 14. Current use is about 2 cig/day. Denies hx seizures, blackouts or overdoses. PMHx: Gastric sleeve (which resolved HTN and DM); Asthma (no exacerbation in 8 months) MHHx: Anxiety and Depression. Not visited a MH Provider in 1 year. (Used to Zoloft and Riperidal) has been taking 'illicit' Reperidal 2 mg daily for last 3 months. Denies thoughts of harming self or others. Search Terms: Fabiola Parry, 06/06/1964 Search Date: 10/08/2018 07:08:08 PM The Drug Utilization Report below displays all of the controlled substance prescriptions, if any, that your patient has filled in the last twelve months. The information displayed on this report is compiled from pharmacy submissions to the Department, and accurately reflects the information as submitted by the pharmacies. This report was requested by: Mariah Parry | Reference #: [id number] There are no results for the search terms that you entered. Search Terms: Fabiola Parry, 06/06/1964 Search Date: 10/08/2018 07:09:18 PM States Searched: [place], [place], [place], [place], [place], [place], [place] The Drug Utilization Report below displays the controlled substance prescriptions, if any, that were dispensed in the indicated state(s). The information displayed on this report is compiled from requests submitted to other states' PMPs, and accurately reflects the information as returned by them. Blank blanc indicate data not provided by other state. This report was requested by: Mariah Parry | Reference #: [id number] Exam Limitations: No Limitations - Ebola screening Have you traveled outside of the country in the last 21 days: No Have you had contact with anyone from an Ebola affected area: No Have you been sick,other than usual withdrawal symptoms: No (Denies recent exposure to measles) Do you have a fever: No - Review of Systems Constitutional: Chills, Diaphoresis, Changes in sleep (Difficulty falling asleep ) EENT: reports: Blurred Vision, Nose Congestion, Dental Problems (Missing teeth. Can chew and swallow ok.) Respiratory: reports: No Symptoms reported Cardiac: reports: No Symptoms Reported GI: reports: Nausea, Indigestion (Heart burn - takes Zantac), Abdominal cramping : reports: No Symptoms Reported Musculoskeletal: reports: Back Pain (r/t withdrawal), Joint Pain (Chronic achy pain @ "8" both hips (L) > (R). Increases w/ rainy weather. Improves w/ rest, pain meds.) Integumentary: reports: No Symptoms Reported Neuro: reports: Tingling (Toes of both feet - intermittent - increases when not using aoiates.), Tremors Endocrine: reports: Increased Thirst Hematology: reports: No Symptoms Reported Psychiatric: reports: Orientated x3, Anxious, Depressed (Denies thoughts of harming self or others.) Patient History - Patient Medical History Hx Anemia: Yes (d/t gastric bypass) Hx Asthma: Yes Hx Chronic Obstructive Pulmonary Disease (COPD): No Hx Cancer: No Hx Cardiac Disorders: No Hx Congestive Heart Failure: No Hx Hypertension: Yes (Not on meds.) Hx Hypercholesterolemia: No Hx Pacemaker: No HX Cerebrovascular Accident: No Hx Seizures: No Hx Dementia: No Hx Diabetes: No Hx Gastrointestinal Disorders: Yes (Acid reflux from hx of gastric bypass.) Hx Liver Disease: No Hx Genitourinary Disorders: No Hx Sexually Transmitted Disorders: No Hx Renal Disease (ESRD): No Hx Thyroid Disease: No Hx Human Immunodeficiency Virus (HIV): No (negative) Hx Hepatitis C: No (negative) Hx Depression: Yes Hx Suicide Attempt: No (no si at this time) Hx Bipolar Disorder: Yes (not taking meds) Hx Schizophrenia: No - Patient Surgical History Past Surgical History: Yes Hx Neurologic Surgery: No Hx Cataract Extraction: No Hx Cardiac Surgery: No Hx Lung Surgery: No Hx Breast Surgery: No Hx Breast Biopsy: No Hx Abdominal Surgery: No Hx Appendectomy: No Hx Cholecystectomy: Yes (SX--10 YRS AGO) Hx Section: Yes (X1--16 YRS AGO) Hx Orthopedic Surgery: Yes (HIP SX--X5 DUE TO HIP ANOMALY) Other Surgical History: bariatric surgery-sleeve in 2015 Anesthesia Reaction: No - PPD History Previous Implant?: Yes Documented Results: Negative w/proof Implanted On Prior [facility] Admission?: Yes Date: 02/20/17 Results: 0 MM PPD to be Administered?: Yes - Reproductive History Patient is a Female of Child Bearing Age (11 -55 yrs old): Yes Last Menstrual Period: 10/26/10 Patient : No - Smoking Cessation Smoking history: Current some day smoker Have you smoked in the past 12 months: Yes Aproximately how many cigarettes per day: 2 Hx Chewing Tobacco Use: No Initiated information on smoking cessation: Yes 'Breaking Loose' booklet given: 10/08/18 - Substance & Tx. History Hx Alcohol Use: Yes Hx Substance Use: Yes Substance Use Type: Alcohol, Cocaine, Heroin Hx Substance Use Treatment: Yes (detox, rehab) - Substances abused Alcohol Substance route: Oral Frequency: Daily Amount used: 1 pints of vodka Age of first use: 24 Date of last use: 10/07/18 Marijuana/Hashish Substance route: Smoking Frequency: Daily Amount used: $5 bag Age of first use: 13 Date of last use: 10/08/18 Cocaine Substance route: Smoking Frequency: Daily Amount used: $40 Age of first use: 18 Date of last use: 10/07/18 Heroin Substance route: Inhalation Frequency: Daily Amount used: $20 Age of first use: 42 Date of last use: 10/07/18 Family Disease History - Family Disease History Family Disease History: Diabetes: Mother, Heart Disease: Mother, Respiratory: Mother, Brother Admission Physical Exam [facility] - Vital Signs Vital Signs: Vital Signs - 24 hr 10/08/18 18:04 Temperature 98.6 F Pulse Rate 60 Respiratory 18 Rate Blood Pressure 124/65 - Physical General Appearance: Yes: Mild Distress, Tremorous, Sweating (Increased facial moisture), Anxious, Other (Weight is stable) HEENTM: Yes: EOMI (Jerking movement of eyes upon lateral gaze.), Hearing grossly Normal, Normocephalic, Normal Voice, MARIANELA (Pupils = 4 mm), Pharynx Normal Respiratory: Yes: Lungs Clear, Normal Breath Sounds, No Respiratory Distress Neck: Yes: No masses,lesions,Nodules, Supple Breast: Yes: Breast Exam Deferred Cardiology: Yes: Regular Rhythm, S1, S2, Bradycardia (HR: 58) Abdominal: Yes: Non Tender, Flat, Soft, Increased Bowel Sounds Genitourinary: Yes: Within Normal Limits Back: Yes: Normal Inspection Musculoskeletal: Yes: Gait Steady (w/ use of walker) Extremities: Yes: Normal Capillary Refill, Tremors (Moderate tremors w/ arm elevation) 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: Yes: concrete block layer II-XII NML intact (Jerking movement of eyes upon lateral gaze.), Fully Oriented, Alert, Motor Strength 5/5, Normal Mood/Affect Integumentary: Yes: Normal Color, Warm, Other (Decreased skin turgor.) Lymphatic: Yes: Within Normal Limits - Diagnostic (1) History of asthma Current Visit: No Status: Chronic (2) Acid reflux Current Visit: Yes Status: Chronic Qualifiers: Esophagitis presence: without esophagitis Qualified Code(s): K21.9 - Gastro -esophageal reflux disease without esophagitis (3) Nystagmus Current Visit: Yes Status: Acute (4) Alcohol dependence with uncomplicated withdrawal Current Visit: Yes Status: Acute (5) Dehydration Current Visit: Yes Status: Acute (6) Nicotine dependence Current Visit: Yes Status: Chronic Qualifiers: Nicotine product type: cigarettes Substance use status: in withdrawal Qualified Code(s): F17.213 - Nicotine dependence, cigarettes, with withdrawal (7) Opioid dependence with withdrawal Current Visit: Yes Status: Acute (8) Walker as ambulation aid Current Visit: Yes Status: Chronic (9) Cannabis dependence Current Visit: Yes Status: Chronic (10) Cocaine dependence Current Visit: Yes Status: Chronic Qualifiers: Substance use status: uncomplicated Qualified Code(s): F14.20 - Cocaine dependence, uncomplicated (11) H/O gastric bypass Current Visit: Yes Status: Chronic Cleared for Admission S - Detox or Rehab [facility] Level of Care: Medically Managed Detox Regimen/Protocol: Methadone/Librium Claeared for Rehab Admission: No Breathalyzer - Breathalyzer Breathalyzer: 0 Urine Drug Screen - Test Device Lot number: [id number] Expiration date: 06/25/20 - Control Is test valid?: Yes - Results Drug screen NEGATIVE: No Urine drug screen results: THC-Marijuana, CINTHIA-Cocaine, MOP-Opiates, MTD- Methadone Inpatient Rehab Admission - Rehab Decision to Admit Inpatient rehab admission?: No
[2018-10-08] MEDS ORDERED: METHADONE HCL 10 MG TABLET (FOR DETOX USE ONLY) PO ONE ×2 (19:55→23:00)
[2018-10-08] MEDS ORDERED: chlordiazePOXIDE HCL 25 MG CAPSULE PO ONE (19:55)
[2018-10-08] MEDS ORDERED: MAGNESIUM CITRATE 300 ML BOTTLE PO PRN (19:59)
[2018-10-08] MEDS ORDERED: ACETAMINOPHEN 325 MG TABLET (FP) PO PRN (19:59)
[2018-10-08] MEDS ORDERED: MAG HYDROX/AL HYDROX/SIMETH 30 ML UNIT-DOSE CUP PO PRN (19:59)
[2018-10-08] MEDS ORDERED: MENTHOL/PHENOL 1 EACH UD MM PRN (19:59)
[2018-10-08] MEDS ORDERED: MELATONIN 5 MG TABLETS PO PRN (19:59)
[2018-10-08] MEDS ORDERED: MAGNESIUM HYDROX 2400MG/30ML ORAL SUSPENSION 30 ML CUP PO PRN (19:59)
[2018-10-08] MEDS ORDERED: BISMUTH SUBSALICYLATE 524 MG/30 ML UD PO PRN (19:59)
[2018-10-08] MEDS ORDERED: ALBUTEROL SO4 0.083% IH SOL 2.5 MG/3 ML VIAL.NEB. NEB PRN (20:04)
[2018-10-08] MEDS: chlordiazePOXIDE HCL 25 MG CAPSULE PO SCH ×2 (21:13→22:33)
[2018-10-08] MEDS: THIAMINE HCL 100 MG TABLET (FP) PO SCH (21:20)
[2018-10-08] MEDS: RANITIDINE HCL 150 MG TABLET (FP) PO SCH (22:33)
[2018-10-08] MEDS: ACETAMINOPHEN 325 MG TABLET (FP) PO PRN (22:35)
[2018-10-09] MEDS: chlordiazePOXIDE HCL 10 MG CAPSULE PO PRN ×3 (00:48→20:04)
[2018-10-09] MEDS: METHOCARBAMOL 500 MG TABLET PO PRN ×3 (00:48→17:01)
[2018-10-09] MEDS: chlordiazePOXIDE 5 MG CAPSULE PO SCH ×3 (05:50→22:24)
[2018-10-09] MEDS: IBUPROFEN 400 MG TABLET (FP) PO PRN ×2 (06:08→17:01)
[2018-10-09] MEDS: cloNIDine HCL 0.1 MG TABLET PO PRN ×2 (07:03→17:05)
[2018-10-09 09:58] LABS: HEMATOCRIT 37.3 % (32.4-45.2); HEMOGLOBIN 12.4 GM/dL (10.7-15.3); MCH 29.8 pg (25.7-33.7); MCHC 33.2 g/dl (32.0-36.0); MEAN CELL VOLUME 89.7 fl (80-96); MEAN PLT VOLUME 8.8 fl (7.5-11.1); PLATELET COUNT 244 K/MM3 (134-434); RBC 4.16 M/mm3 (3.60-5.2); WHITE BLOOD COUNT 7.1 K/mm3 (4.0-10.0)
[2018-10-09] MEDS ORDERED: METHADONE HCL 5 MG TABLET (FOR DETOX USE ONLY) PO ONE (10:00)
[2018-10-09 10:13] LABS: ALBUMIN 3.5 g/dl (3.4-5.0); BILIRUBIN,TOTAL 0.4 mg/dL (0.2-1); BLOOD UREA NITROGEN 18.1 mg/dL (7-18); CALCIUM 8.7 mg/dL (8.5-10.1); CREATININE 0.9 mg/dL (0.55-1.3); TOT PROT 6.7 g/dl (6.4-8.2)
[2018-10-09 10:14] LABS: POTASSIUM 2.9 mmol/L (3.5-5.1)
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
[2018-10-09] MEDS: PRENATAL VITAMINS W/ FOLIC ACID TABLET (FP) PO SCH (10:46)
[2018-10-09] MEDS: RANITIDINE HCL 150 MG TABLET (FP) PO SCH ×2 (10:46→22:23)
--- NOTE | 2018-10-09 10:56 | EKG ---
Test Reason : Blood Pressure : / mmHG Vent. Rate : 048 BPM Atrial Rate : 241 BPM P-R Int : 000 ms QRS Dur : 100 ms QT Int : 484 ms P-R-T Axes : 000 -24 012 degrees QTc Int : 432 ms POOR DATA QUALITY, INTERPRETATION MAY BE ADVERSELY AFFECTED SINUS BRADYCARDIA NONSPECIFIC INTRAVENTRICULAR CONDUCTION DEFECT Confirmed by NAMRATA TAVERAS MD ([id number]) on 10/09/2018 10:55:48 AM Referred By: Confirmed By:NAMRATA TAVERAS MD
[2018-10-09] MEDS ORDERED: POTASSIUM CHLORIDE TABS 20 MEQ TABLET.ER (FP) PO ONE (11:00)
--- NOTE | 2018-10-09 14:38 | PN ---
[facility] CIWA - CIWA Score Nausea/Vomitin-No Nausea/No Vomiting Muscle Tremors: 3 Anxiety: 4-Mod. Anxious/Guarded Agitation: 1-Slight > Activity Paroxysmal Sweats: No Perspiration Orientation: 0-Oriented Tacttile Disturbances: 2-Mild Itch/Numbness/Burn Auditory Disturbances: 2-Mild Harshness/Frighten Visual Disturbances: 0-None Headache: 0-None Present CIWA-Ar Total Score: 12 S COWS - Scale Resting Pulse: 0= [place] 80 or Below Sweatin= No chills or Flushing Restless Observation: 0= Sits Still Pupil Size: 0= Normal to Room Light Bone or Joint Aches: 0= None Runny Nose/ Eye Tearin= None GI Upset > 30mins: 2= Nausea/Diarrhea Tremor Observation of Outstretched Hands: 2= Slight Tremor Visible Yawning Observation: 1= 1-2x During Session Anxiety or Irritability: 2=Irritable/Anxious Goose Flesh Skin: 3=Piloerection COWS Score: 10 S Progress Note (SOAP) Subjective: Tremors, Fatigue, Diarrhea, Anxious, Poor Appetite. Objective: PATIENT A & O X 3, OBSERVED AMBULATING ON UNIT WITH ASSISTANCE OF A WALKER. IN NO ACUTE DISTRESS. 10/09/18 14:39 Vital Signs Temperature 97.2 F L 10/09/18 14:17 Pulse Rate 62 10/09/18 14:17 Respiratory Rate 18 10/09/18 14:17 Blood Pressure 114/53 L 10/09/18 14:17 O2 Sat by Pulse Oximetry (%) Laboratory Tests 10/08/18 10/09/18 10/09/18 18:52 07:00 07:00 WBC 7.1 RBC 4.16 Hgb 12.4 Hct 37.3 MCV 89.7 MCH 29.8 MCHC 33.2 RDW 14.0 Plt Count 244 MPV 8.8 Sodium 141 Potassium 2.9 L* Chloride 103 Carbon Dioxide 30 Anion Gap 8 BUN 18.1 H Creatinine 0.9 Est GFR (CKD-EPI)AfAm 84.01 Est GFR (CKD-EPI)NonAf 72.49 Random Glucose 115 H Calcium 8.7 Total Bilirubin 0.4 AST 13 L ALT 16 Alkaline Phosphatase 75 Total Protein 6.7 Albumin 3.5 POC Urine HCG, Qual Negative RPR Titer 10/09/18 07:00 WBC RBC Hgb Hct MCV MCH MCHC RDW Plt Count MPV Sodium Potassium Chloride Carbon Dioxide Anion Gap BUN Creatinine Est GFR (CKD-EPI)AfAm Est GFR (CKD-EPI)NonAf Random Glucose Calcium Total Bilirubin AST ALT Alkaline Phosphatase Total Protein Albumin POC Urine HCG, Qual RPR Titer Nonreactive LABS NOTED. PATIENT REPORTS HISTORY OF LOW POTASSIUM LEVEL. Assessment: 10/09/18 14:40 WITHDRAWAL SYMPTOMS. HYPOKALEMIA. Plan: CONTINUE DETOX. INCREASE DAILY PO FLUID / WATER INTAKE. K-DUR, 40 MEQ PO X 1, THEN 20 MEQ PO AFTER. WILL RE-CHECK POTASSIUM LEVEL FOR EFFECT ON 10/11/2018. PRN PEPTO-BISMOL PO FOR DIARRHEA. ENSURE PO FOR CALORIC SUPPLEMENTATION.
[2018-10-09] MEDS ORDERED: TRIMETHOBENZAMIDE HCL 200MG/2ML INJ IM PRN (14:43)
[2018-10-09 18:51] LABS: URINE APPEARANCE TURBID; URINE BILIRUBIN 1+ (NEGATIVE); URINE COLOR DK YELLOW; URINE GLUCOSE (UA) NEGATIVE (NEGATIVE); URINE KETONE TRACE (NEGATIVE); URINE LEUK ESTERASE NEGATIVE (NEGATIVE); URINE NITRITE NEGATIVE (NEGATIVE); URINE PROTEIN TRACE (NEGATIVE)
[2018-10-09] MEDS: NICOTINE POLACRILEX 2 MG GUM BUC PRN (20:05)
[2018-10-09] MEDS ORDERED: POTASSIUM CHLORIDE ORAL LIQUID 20 MEQ/15 ML PO SCH (22:00)
[2018-10-09] MEDS: THIAMINE HCL 100 MG TABLET (FP) PO SCH (22:23)
[2018-10-09] MEDS: QUEtiapine FUMARATE 50 MG TABLET PO SCH (22:24)
[2018-10-09] MEDS: risperiDONE 1 MG TABLET (FP) PO SCH (22:24)
[2018-10-09] MEDS: POTASSIUM CHLORIDE TABS 20 MEQ TABLET.ER (FP) PO SCH (23:25)
[2018-10-10] MEDS ORDERED: chlordiazePOXIDE HCL 10 MG CAPSULE PO PRN (05:00)
[2018-10-10] MEDS: chlordiazePOXIDE HCL 10 MG CAPSULE PO SCH ×3 (05:52→20:00)
[2018-10-10] MEDS: METHOCARBAMOL 500 MG TABLET PO PRN (07:49)
[2018-10-10] MEDS ORDERED: METHADONE HCL 10 MG TABLET (FOR DETOX USE ONLY) ONE (08:29)
[2018-10-10] MEDS ORDERED: METHADONE HCL 5 MG TABLET (FOR DETOX USE ONLY) ONE (08:30)
[2018-10-10] MEDS: POTASSIUM CHLORIDE TABS 20 MEQ TABLET.ER (FP) PO SCH ×2 (09:48→21:59)
[2018-10-10] MEDS: PRENATAL VITAMINS W/ FOLIC ACID TABLET (FP) PO SCH (09:48)
[2018-10-10] MEDS: risperiDONE 1 MG TABLET (FP) PO SCH ×2 (09:48→21:59)
[2018-10-10] MEDS: RANITIDINE HCL 150 MG TABLET (FP) PO SCH ×2 (09:48→21:59)
[2018-10-10] MEDS ORDERED: METHADONE (DETOX) 10 MG, METHADONE (DETOX) 5 MG PO ONE (10:00)
[2018-10-10] MEDS: SERTRALINE HCL 50 MG TABLET (FP) PO SCH (10:00)
[2018-10-10] MEDS: NICOTINE POLACRILEX 2 MG GUM BUC PRN (10:50)
--- NOTE | 2018-10-10 12:26 | EKG ---
Test Reason : Blood Pressure : / mmHG Vent. Rate : 056 BPM Atrial Rate : 056 BPM P-R Int : 160 ms QRS Dur : 100 ms QT Int : 456 ms P-R-T Axes : 058 -29 -12 degrees QTc Int : 440 ms SINUS BRADYCARDIA OTHERWISE NORMAL ECG WHEN COMPARED WITH ECG OF 08-OCT-2018 20:14, SINUS RHYTHM HAS REPLACED JUNCTIONAL RHYTHM NONSPECIFIC T WAVE ABNORMALITY, WORSE IN ANTERIOR LEADS Confirmed by MD ANALISA, ANNEMARIE ([id number]) on 10/10/2018 12:25:44 PM Referred By: Confirmed By:ANNEMARIE HAUSER MD
[2018-10-10] MEDS: ACETAMINOPHEN 325 MG TABLET (FP) PO PRN (13:32)
--- NOTE | 2018-10-10 14:07 | PN ---
[facility] CIWA - CIWA Score Nausea/Vomitin-No Nausea/No Vomiting Muscle Tremors: 2 Anxiety: 2 Agitation: 2 Paroxysmal Sweats: 3 Orientation: 0-Oriented Tacttile Disturbances: 0-None Auditory Disturbances: 0-None Visual Disturbances: 0-None Headache: 2-Mild CIWA-Ar Total Score: 11 S COWS - Scale Resting Pulse: 0= [place] 80 or Below Sweatin= Chills/Flushing Restless Observation: 1= Difficult to Sit Still Pupil Size: 0= Normal to Room Light Bone or Joint Aches: 4=Acute Joint/Muscle Pain Runny Nose/ Eye Tearin= None GI Upset > 30mins: 0= None Tremor Observation of Outstretched Hands: 2= Slight Tremor Visible Yawning Observation: 1= 1-2x During Session Anxiety or Irritability: 0= None Goose Flesh Skin: 0=Smooth Skin COWS Score: 9 S Progress Note (SOAP) Subjective: c/o interrupted sleep, headache, anxiety/irritability, sweats, and shakes. Objective: 10/10/18 14:07 Vital Signs 10/10/18 10/10/18 10/10/18 06:29 09:48 13:57 Temperature 97.8 F 97.7 F 97.1 F L Pulse Rate 58 L 65 77 Respiratory 18 17 18 Rate Blood Pressure 127/80 92/39 L 113/71 Lab Results WBC 7.1 K/mm3 (4.0-10.0) 10/09/18 07:00 RBC 4.16 M/mm3 (3.60-5.2) 10/09/18 07:00 Hgb 12.4 GM/dL (10.7-15.3) 10/09/18 07:00 Hct 37.3 % (32.4-45.2) 10/09/18 07:00 MCV 89.7 fl (80-96) 10/09/18 07:00 MCHC 33.2 g/dl (32.0-36.0) 10/09/18 07:00 RDW 14.0 % (11.6-15.6) 10/09/18 07:00 Plt Count 244 K/MM3 (134-434) 10/09/18 07:00 Sodium 141 mmol/L (136-145) 10/09/18 07:00 Potassium 2.9 mmol/L (3.5-5.1) L* 10/09/18 07:00 Chloride 103 mmol/L (98-107) 10/09/18 07:00 Carbon Dioxide 30 mmol/L (21-32) 10/09/18 07:00 Anion Gap 8 MMOL/L (8-16) 10/09/18 07:00 BUN 18.1 mg/dL (7-18) H 10/09/18 07:00 Creatinine 0.9 mg/dL (0.55-1.3) 10/09/18 07:00 Random Glucose 115 mg/dL (74-106) H 10/09/18 07:00 Calcium 8.7 mg/dL (8.5-10.1) 10/09/18 07:00 Labs noted. Assessment: 10/10/18 14:07 AOX3, in no acute distress Full ROM, ambulating in the unit. Withdrawal symptoms. Plan: continue detox.
[2018-10-10] MEDS: THIAMINE HCL 100 MG TABLET (FP) PO SCH (21:59)
[2018-10-10] MEDS: QUEtiapine FUMARATE 50 MG TABLET PO SCH (21:59)
[2018-10-11] MEDS: chlordiazePOXIDE HCL 10 MG CAPSULE PO SCH (05:30)
[2018-10-11] MEDS: METHOCARBAMOL 500 MG TABLET PO PRN ×2 (05:33→15:37)
[2018-10-11] MEDS ORDERED: METHADONE HCL 10 MG TABLET (FOR DETOX USE ONLY) PO ONE (10:00)
[2018-10-11] MEDS: POTASSIUM CHLORIDE TABS 20 MEQ TABLET.ER (FP) PO SCH ×2 (10:39→22:40)
[2018-10-11] MEDS: risperiDONE 1 MG TABLET (FP) PO SCH ×2 (10:39→22:40)
[2018-10-11] MEDS: SERTRALINE HCL 50 MG TABLET (FP) PO SCH (10:39)
[2018-10-11] MEDS: RANITIDINE HCL 150 MG TABLET (FP) PO SCH ×2 (10:39→22:40)
[2018-10-11] MEDS: PRENATAL VITAMINS W/ FOLIC ACID TABLET (FP) PO SCH (10:39)
--- NOTE | 2018-10-11 14:48 | PN ---
S CIWA - CIWA Score Nausea/Vomitin-Mild Nausea/No Vomiting Muscle Tremors: 2 Anxiety: 2 Agitation: 2 Paroxysmal Sweats: 1-Minimal Palms Moist Orientation: 0-Oriented Tacttile Disturbances: 0-None Auditory Disturbances: 1-Very Mild Visual Disturbances: 1-Very Mild Sensitivity Headache: 1-Very Mild CIWA-Ar Total Score: 11 BHS COWS - Scale Resting Pulse: 0= [place] 80 or Below Sweatin= Chills/Flushing Restless Observation: 1= Difficult to Sit Still Pupil Size: 1= Pupils >than Normal Bone or Joint Aches: 2= Severe Diffuse Aches Runny Nose/ Eye Tearin= Nasal Congestion GI Upset > 30mins: 0= None Tremor Observation of Outstretched Hands: 1= Tremor [place], Not Seen Yawning Observation: 0= None Anxiety or Irritability: 2=Irritable/Anxious Goose Flesh Skin: 0=Smooth Skin COWS Score: 9 S Progress Note (SOAP) Subjective: ANXIOUS POOR SLEEP IRRITABILITY Objective: 10/11/18 14:47 Vital Signs - 24 hr 10/10/18 10/10/18 10/11/18 18:21 21:55 00:30 Temperature 97.5 F L 97.5 F L Pulse Rate 69 63 Respiratory 16 18 18 Rate Blood Pressure 118/71 107/73 10/11/18 10/11/18 10/11/18 06:51 09:15 13:22 Temperature 98.5 F 98.4 F 97.7 F Pulse Rate 78 79 86 Respiratory 18 18 18 Rate Blood Pressure 132/84 132/70 103/66 Laboratory Tests 10/08/18 10/09/18 10/09/18 18:52 00:01 07:00 WBC 7.1 RBC 4.16 Hgb 12.4 Hct 37.3 MCV 89.7 MCH 29.8 MCHC 33.2 RDW 14.0 Plt Count 244 MPV 8.8 Sodium Potassium Chloride Carbon Dioxide Anion Gap BUN Creatinine Est GFR (CKD-EPI)AfAm Est GFR (CKD-EPI)NonAf Random Glucose Calcium Total Bilirubin AST ALT Alkaline Phosphatase Total Protein Albumin Urine Color Dk yellow Urine Appearance Turbid Urine pH 6.0 Ur Specific [place] 1.031 Urine Protein Trace Urine Glucose (UA) Negative Urine Ketones Trace H Urine Blood Negative Urine Nitrite Negative Urine Bilirubin 1+ H Urine Urobilinogen 1.0 Ur Leukocyte Esterase Negative POC Urine HCG, Qual Negative RPR Titer 10/09/18 10/09/18 10/11/18 07:00 07:00 07:30 WBC RBC Hgb Hct MCV MCH MCHC RDW Plt Count MPV Sodium 141 Potassium 2.9 L* 4.5 Chloride 103 Carbon Dioxide 30 Anion Gap 8 BUN 18.1 H Creatinine 0.9 Est GFR (CKD-EPI)AfAm 84.01 Est GFR (CKD-EPI)NonAf 72.49 Random Glucose 115 H Calcium 8.7 Total Bilirubin 0.4 AST 13 L ALT 16 Alkaline Phosphatase 75 Total Protein 6.7 Albumin 3.5 Urine Color Urine Appearance Urine pH Ur Specific [place] Urine Protein Urine Glucose (UA) Urine Ketones Urine Blood Urine Nitrite Urine Bilirubin Urine Urobilinogen Ur Leukocyte Esterase POC Urine HCG, Qual RPR Titer Nonreactive Assessment: 10/11/18 14:48 ACUTE WITHDRAWAL HYPOKALEMIA RESOLVED Plan: CONT DETOX PROTOCOL
[2018-10-11] MEDS ORDERED: TRIMETHOBENZAMIDE HCL 300 MG CAPSULE PO PRN (15:39)
[2018-10-11] MEDS: hydrOXYzine PAMOATE 50 MG CAPSULE (FP) PO PRN ×2 (15:51→22:42)
[2018-10-11] MEDS: QUEtiapine FUMARATE 50 MG TABLET PO SCH (22:40)
[2018-10-11] MEDS: THIAMINE HCL 100 MG TABLET (FP) PO SCH (22:40)
[2018-10-12] MEDS: METHOCARBAMOL 500 MG TABLET PO PRN (03:32)
[2018-10-12] MEDS: ACETAMINOPHEN 325 MG TABLET (FP) PO PRN (03:32)
[2018-10-12] MEDS ORDERED: METHADONE HCL 5 MG TABLET (FOR DETOX USE ONLY) PO ONE (06:00)
[2018-10-12] MEDS: hydrOXYzine PAMOATE 50 MG CAPSULE (FP) PO PRN (06:02)
[2018-10-12] MEDS: NICOTINE POLACRILEX 2 MG GUM BUC PRN (06:05)
[2018-10-12 09:44] VITALS: BP 134/72; PULSE 92; TEMP 97.1
[2018-10-12] MEDS: POTASSIUM CHLORIDE TABS 20 MEQ TABLET.ER (FP) PO SCH (10:13)
[2018-10-12] MEDS: RANITIDINE HCL 150 MG TABLET (FP) PO SCH (10:13)
[2018-10-12] MEDS: SERTRALINE HCL 50 MG TABLET (FP) PO SCH (10:13)
[2018-10-12] MEDS: PRENATAL VITAMINS W/ FOLIC ACID TABLET (FP) PO SCH (10:14)
[2018-10-12] MEDS: risperiDONE 1 MG TABLET (FP) PO SCH (10:14)
--- NOTE | 2018-10-12 17:30 | DS ---
[facility] Detox Discharge Summary Admission Date: 10/08/18 Discharge Date: 10/12/18 - History Present History: Alcohol Dependence, Cannabis Dependence, Cocaine Dependence, Opioid Dependence Additional Comments: PATIENT GOING TO [facility] ([place], [place]) FOR AFTERCARE. PATIENT WAS DISCHARGED FORM DETOX UNIT IN STABLE MEDICAL CONDITION. Pertinent Past History: Asthma,, History Of Anemia, History Of Gastric Sleeve Placement (Resolved HTN and DM), Anxiety, Depression, G.E.R.D., Bipolar Disorder, Nystagmus, Dehydration , Nicotine Dependence, Use Of Walker As Ambulatory Aid, Hypokalemia, History Of Paranoid Schizophrenia, Insomnia. - Physical Exam Results Vital Signs: Vital Signs Temperature 97.1 F L 10/12/18 09:44 Pulse Rate 92 H 10/12/18 09:44 Respiratory Rate 18 10/12/18 09:44 Blood Pressure 134/72 10/12/18 09:44 O2 Sat by Pulse Oximetry (%) Pertinent Admission Physical Exam Findings: WITHDRAWAL SYMPTOMS. Laboratory Tests 10/08/18 10/09/18 10/09/18 18:52 00:01 07:00 WBC 7.1 RBC 4.16 Hgb 12.4 Hct 37.3 MCV 89.7 MCH 29.8 MCHC 33.2 RDW 14.0 Plt Count 244 MPV 8.8 Sodium Potassium Chloride Carbon Dioxide Anion Gap BUN Creatinine Est GFR (CKD-EPI)AfAm Est GFR (CKD-EPI)NonAf Random Glucose Calcium Total Bilirubin AST ALT Alkaline Phosphatase Total Protein Albumin Urine Color Dk yellow Urine Appearance Turbid Urine pH 6.0 Ur Specific [place] 1.031 Urine Protein Trace Urine Glucose (UA) Negative Urine Ketones Trace H Urine Blood Negative Urine Nitrite Negative Urine Bilirubin 1+ H Urine Urobilinogen 1.0 Ur Leukocyte Esterase Negative POC Urine HCG, Qual Negative RPR Titer 10/09/18 10/09/18 10/11/18 07:00 07:00 07:30 WBC RBC Hgb Hct MCV MCH MCHC RDW Plt Count MPV Sodium 141 Potassium 2.9 L* 4.5 Chloride 103 Carbon Dioxide 30 Anion Gap 8 BUN 18.1 H Creatinine 0.9 Est GFR (CKD-EPI)AfAm 84.01 Est GFR (CKD-EPI)NonAf 72.49 Random Glucose 115 H Calcium 8.7 Total Bilirubin 0.4 AST 13 L ALT 16 Alkaline Phosphatase 75 Total Protein 6.7 Albumin 3.5 Urine Color Urine Appearance Urine pH Ur Specific [place] Urine Protein Urine Glucose (UA) Urine Ketones Urine Blood Urine Nitrite Urine Bilirubin Urine Urobilinogen Ur Leukocyte Esterase POC Urine HCG, Qual RPR Titer Nonreactive LABS NOTED. - Treatment Hospital Course: Detox Protocol Followed, Detoxed Safely, Responded well, Discharged Condition Good, Rehab Referral Accepted Patient has Accepted a Rehab Referral to: [facility] ([place], [place]). - Medication Discharge Medications: Ambulatory Orders Quetiapine Fumarate [Seroquel -] 50 mg PO HS #30 tablet 07/31/17 Risperidone [Risperdal -] 1 mg PO BID #60 tablet 08/01/17 Albuterol Sulfate Inhaler - [Ventolin HFA Inhaler -] 2 inh IH Q4H PRN #1 inhaler 08/03/17 Ranitidine [Zantac -] 150 mg PO BID #60 tab 08/03/17 Sertraline HCl [Zoloft -] 100 mg PO DAILY 10/08/18 - Diagnosis (1) Alcohol dependence with uncomplicated withdrawal Status: Acute (2) Dehydration Status: Acute (3) Nystagmus Status: Chronic (4) Opioid dependence with withdrawal Status: Acute (5) Acid reflux Status: Chronic Qualifiers: Esophagitis presence: without esophagitis Qualified Code(s): K21.9 - Gastro -esophageal reflux disease without esophagitis (6) Asthma Status: Chronic (7) Cannabis dependence Status: Chronic (8) Cocaine dependence Status: Chronic Qualifiers: Substance use status: uncomplicated Qualified Code(s): F14.20 - Cocaine dependence, uncomplicated (9) H/O gastric bypass Status: Chronic (10) Insomnia Status: Chronic Qualifiers: Insomnia type: unspecified Qualified Code(s): G47.00 - Insomnia, unspecified (11) Nicotine dependence Status: Chronic Qualifiers: Nicotine product type: cigarettes Substance use status: in withdrawal Qualified Code(s): F17.213 - Nicotine dependence, cigarettes, with withdrawal (12) Non-compliance Status: Chronic (13) Paranoid schizophrenia Status: Chronic (14) Walker as ambulation aid Status: Chronic (15) Substance induced mood disorder Status: Chronic - AMA Did Patient Leave Against Medical Advice: No
== END 2018-10-12 11:58 | disposition home or self-care (01) | DRG 773 ==
LOC: YASAS 12:53 → Y3N 20:24
PROVIDERS: ADMIT Surgery; ATTEND Surgery
PROC: HZ2ZZZZ Detoxification Services for Substance Abuse Treatment (ICD-10-PCS; principal; 2018-10-08)
DX: F11.23 Opioid dependence with withdrawal (principal); F10.230 Alcohol dependence with withdrawal, uncomplicated; F14.20 Cocaine dependence, uncomplicated; F12.20 Cannabis dependence, uncomplicated; F17.213 Nicotine dependence, cigarettes, with withdrawal; F19.24 Other psychoactive substance dependence with psychoactive substance-induced mood disorder; F20.0 Paranoid schizophrenia; R00.1 Bradycardia, unspecified; E86.0 Dehydration; H55.00 Unspecified nystagmus; K21.9 Gastro-esophageal reflux disease without esophagitis; J45.909 Unspecified asthma, uncomplicated; G47.00 Insomnia, unspecified; E87.6 Hypokalemia; R26.2 Difficulty in walking, not elsewhere classified; Z99.89 Dependence on other enabling machines and devices; Z91.19 Patient's noncompliance with other medical treatment and regimen; Z98.84 Bariatric surgery status; Z96.651 Presence of right artificial knee joint; Z88.2 Allergy status to sulfonamides
CPT/HCPCS: 36415; 80053; 81003; 81025; 84132; 85027; 86593; 93005; 93010; J0735; J2794

== ENCOUNTER 2019-02-15 11:16 | Inpatient (IN) | payer BC ==
[2019-02-15 11:38] VITALS: BMI 25.3
--- NOTE | 2019-02-15 12:18 | HP ---
COWS - Scale Resting Pulse: 0= [place] 80 or Below Sweatin=Flushed/Facial Moisture Restless Observation: 1= Difficult to Sit Still Pupil Size: 1= Pupils >than Normal Bone or Joint Aches: 2= Severe Diffuse Aches Runny Nose/ Eye Tearin= Runny Nose/Eyes GI Upset > 30mins: 1= Stomach Cramp Tremor Observation: 1= Tremor [place], Not Seen Yawning Observation: 1= 1-2x During Session Anxiety or Irritability: 2=Irritable/Anxious Goose Flesh Skin: 0=Smooth Skin COWS Score: 13 CIWA Score Nausea/Vomitin-Mild Nausea/No Vomiting Muscle Tremors: 3 Anxiety: 3 Agitation: 4-Moderately Restless Paroxysmal Sweats: 1-Minimal Palms Moist Orientation: 0-Oriented Tacttile Disturbances: 2-Mild Itch/Numbness/Burn Auditory Disturbances: 0-None Visual Disturbances: 0-None Headache: 0-None Present CIWA-Ar Total Score: 14 - Admission Criteria OASAS Guidelines: Admission for Medically Managed Detox: Requires at least one of the followin. CIWA greater than 12 2. Seizures within the past 24 hours 3. Delirium tremens within the past 24 hours 4. Hallucinations within the past 24 hours 5. Acute intervention needed for co occurring medical disorder 6. Acute intervention needed for co occurring psychiatric disorder 7. Severe withdrawal that cannot be handled at a lower level of care (continued vomiting, continued diarrhea, abnormal vital signs) requiring intravenous medication and/or fluids 8. Admitting History and Physical - Primary Care Physician PCP: [facility] - Admission Chief Complaint: " I want to detox off of drugs. I need help. I can't do it by myself." History of Present Illness: 54 year old black female with history of opioid dependence and alcohol dependence with withdrawals, also crack use disorder and marijuana use disorder. She is drinking 1 pint of vodka daily, last drank yesterday morning. She has had blackout from drinking, last blacked out 1 week ago; denies withdrawal seizures. She is using heroin 2-3 bags of heroin per day depending upon what she can afford to buy. She denies ever overdosing on heroin. She smokes 4-5 ciggarettes per day since 17 years of age. 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 Psych: Anxiety and Depression Psurg: History of Gastric Bypass surgery. Meds: Risperdal All: Sulfur drugs She wishes to detox off of heroin and no longer wishes to attend methadone program. She [facility]. She misses the clinic all the time. She wants to stop using all drugs. She was abstinent for 5 months aqfter her previous detox here, but then relapsed. History Source: Patient Limitations to Obtaining History: Physical Impairment - Past Medical History Cardiovascular: Yes: HTN ...LMP: 10/26/10 Psych: Yes: Anxiety, Depression, Schizophrenia (schizophrenia in past) Musculoskeletal: Yes: Chronic low back pain Rheumatology: Yes: Other (bilateral hip arthritis) - Past Surgical History Additional Past Surgical History: 3 hip replacements. Slipped Epiphyses in childhood. - Advance Directives Advance Directives: Yes: Living Will, Health Care Proxy. No: DNR - Smoking History Smoking history: Current some day smoker Have you smoked in the past 12 months: Yes Aproximately how many cigarettes per day: 2 If you are a former smoker, when did you quit?: 3 MONTHS AGO - Alcohol/Substance Use Hx Alcohol Use: Yes - Social History Usual Living Arrangement: Yes: With Child Do you think of yourself as: Straight/Heterosexual ADL: Family Assistance Occupation: , unemployed History of Recent Travel: No Admission [facility] Chief Complaint: " I want to detox off of drugs. I need help. I can't do it by myself." Allergies/Adverse Reactions: Allergies Allergy/AdvReac Type Severity Reaction Status Date / Time Sulfa (Sulfonamide Allergy Intermediate Hives Verified 02/15/19 11:24 Antibiotics) [Sulfa(Sulfonamide Antibiotics)] History of Present Illness: 54 year old black female with history of opioid dependence and alcohol dependence with withdrawals, also crack use disorder and marijuana use disorder. She is drinking 1 pint of vodka daily, last drank yesterday morning. She has had blackout from drinking, last blacked out 1 week ago; denies withdrawal seizures. She is using heroin 2-3 bags of heroin per day depending upon what she can afford to buy. She denies ever overdosing on heroin. She smokes 4-5 ciggarettes per day since 17 years of age. 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 Psych: Anxiety and Depression Psurg: History of Gastric Bypass surgery Meds: Risperdal All: Sulfur drugs She wishes to detox off of heroin and no longer wishes to attend methadone program. She [facility]. She misses the clinic all the time. She wants to stop using all drugs. She was abstinent for 5 months aqfter her previous detox here, but then relapsed. - Ebola screening Have you traveled outside of the country in the last 21 days: No Have you had contact with anyone from an Ebola affected area: No Have you been sick,other than usual withdrawal symptoms: No Do you have a fever: No - Review of Systems Constitutional: Chills, Diaphoresis, Unintentional Wgt. Loss EENT: reports: Blurred Vision Respiratory: reports: No Symptoms reported Cardiac: reports: No Symptoms Reported GI: reports: Nausea, Abdominal cramping : reports: No Symptoms Reported Musculoskeletal: reports: Back Pain, Muscle Pain Integumentary: reports: No Symptoms Reported Neuro: reports: No Symptoms reported Endocrine: reports: No Symptoms Reported Hematology: reports: No Symptoms Reported Psychiatric: reports: Judgement Intact, Orientated x3, Agitated, Anxious Other Systems: Reviewed and Negative Patient History - Patient Medical History Hx Anemia: Yes (d/t gastric bypass) Hx Asthma: Yes Hx Chronic Obstructive Pulmonary Disease (COPD): No Hx Cancer: No Hx Cardiac Disorders: No Hx Congestive Heart Failure: No Hx Hypertension: Yes (Not on meds.) Hx Hypercholesterolemia: No Hx Pacemaker: No HX Cerebrovascular Accident: No Hx Seizures: No Hx Dementia: No Hx Diabetes: No Hx Gastrointestinal Disorders: Yes (Acid reflux from hx of gastric bypass.) Hx Liver Disease: No Hx Genitourinary Disorders: No Hx Sexually Transmitted Disorders: No Hx Renal Disease (ESRD): No Hx Thyroid Disease: No Hx Human Immunodeficiency Virus (HIV): No (negative) Hx Hepatitis C: No (negative) Hx Depression: Yes Hx Suicide Attempt: No (no si at this time) Hx Bipolar Disorder: Yes (not taking meds) Hx Schizophrenia: No - Patient Surgical History Past Surgical History: Yes Hx Neurologic Surgery: No Hx Cataract Extraction: No Hx Cardiac Surgery: No Hx Lung Surgery: No Hx Breast Surgery: No Hx Breast Biopsy: No Hx Abdominal Surgery: No Hx Appendectomy: No Hx Cholecystectomy: Yes (SX--10 YRS AGO) Hx Section: Yes (X1--16 YRS AGO) Hx Orthopedic Surgery: Yes (HIP SX--X5 DUE TO HIP ANOMALY) Other Surgical History: bariatric surgery-sleeve in 2015 Anesthesia Reaction: No - PPD History Previous Implant?: Yes Documented Results: Negative w/proof Implanted On Prior [facility] Admission?: Yes Date: 10/10/18 Results: 0 MM PPD to be Administered?: No - Reproductive History Patient is a Female of Child Bearing Age (11 -55 yrs old): Yes Last Menstrual Period: 11/11/13 Patient : No - Smoking Cessation Smoking history: Current some day smoker Have you smoked in the past 12 months: Yes Aproximately how many cigarettes per day: 2 If you are a former smoker, when did you quit?: 3 MONTHS AGO Hx Chewing Tobacco Use: No Initiated information on smoking cessation: Yes 'Breaking Loose' booklet given: 02/15/19 - Substances abused Rohpnol Substance route: Oral Frequency: Daily Amount used: 1 pints of vodka Age of first use: 24 Date of last use: 02/14/19 Marijuana/Hashish Substance route: Smoking Frequency: Daily Amount used: $2 bag Age of first use: 13 Date of last use: 02/14/19 Cocaine Substance route: Smoking Frequency: Daily Amount used: 5 bags Age of first use: 18 Date of last use: 02/14/19 Heroin Substance route: Inhalation Frequency: Daily Amount used: 2 bags Age of first use: 42 Date of last use: 02/12/19 Admission Physical Exam S - Vital Signs Vital Signs: Vital Signs - 24 hr 02/15/19 11:24 Temperature 97.8 F Pulse Rate 65 Respiratory 18 Rate Blood Pressure 140/87 - Physical General Appearance: Yes: Moderate Distress HEENTM: Yes: EOMI, Hearing grossly Normal, Normocephalic, Normal Voice, MARIANELA, Pharynx Normal, Tm's normal Respiratory: Yes: Chest Non-Tender, Lungs Clear, Normal Breath Sounds, No Respiratory Distress, No Accessory Muscle Use Neck: Yes: No masses,lesions,Nodules, Supple, Trachea in good position Breast: Yes: Breast Exam Deferred Cardiology: Yes: Regular Rhythm, Regular Rate, S1, S2 Abdominal: Yes: Non Tender, Flat, Soft, Increased Bowel Sounds Genitourinary: Yes: Within Normal Limits Back: Yes: Within Normal Limits Musculoskeletal: Yes: Other (walks with walker) Extremities: Yes: Normal Capillary Refill, Normal Inspection, Normal Range of Motion, Non-Tender 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: 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: 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 NML intact, Fully Oriented, Alert, Motor Strength 5/5, Normal Response, Depressed Affect Integumentary: Yes: Warm - Diagnostic (1) Alcohol dependence with uncomplicated withdrawal Current Visit: Yes Status: Acute (2) Opioid dependence with withdrawal Current Visit: Yes Status: Acute (3) Acid reflux Current Visit: Yes Status: Chronic Qualifiers: Esophagitis presence: without esophagitis Qualified Code(s): K21.9 - Gastro -esophageal reflux disease without esophagitis (4) Cannabis dependence Current Visit: Yes Status: Chronic (5) Cocaine dependence Current Visit: Yes Status: Chronic Qualifiers: Substance use status: uncomplicated Qualified Code(s): F14.20 - Cocaine dependence, uncomplicated (6) H/O gastric bypass Current Visit: Yes Status: Chronic (7) Hip joint replacement by other means Current Visit: Yes Status: Chronic (8) History of asthma Current Visit: Yes Status: Chronic (9) Nicotine dependence Current Visit: Yes Status: Chronic Qualifiers: Nicotine product type: cigarettes Substance use status: in withdrawal Qualified Code(s): F17.213 - Nicotine dependence, cigarettes, with withdrawal Screened but not Admitted - Documentation of Visit Screened but not Admitted: No Breathalyzer - Breathalyzer Breathalyzer: 0 (yesterday last drink) Urine Drug Screen - Test Device Lot number: [id number] Expiration date: 09/25/20 - Control Is test valid?: Yes - Results Drug screen NEGATIVE: No Urine drug screen results: THC-Marijuana, CINTHIA-Cocaine, MTD-Methadone Inpatient Rehab Admission - Rehab Decision to Admit Inpatient rehab admission?: No
[2019-02-15] MEDS ORDERED: hydrOXYzine PAMOATE 25 MG CAPSULE (FP) PO PRN (12:31)
[2019-02-15] MEDS ORDERED: MAG HYDROX/AL HYDROX/SIMETH 30 ML UNIT-DOSE CUP PO PRN (12:31)
[2019-02-15] MEDS ORDERED: MAGNESIUM CITRATE 300 ML BOTTLE PO PRN (12:31)
[2019-02-15] MEDS ORDERED: BISMUTH SUBSALICYLATE 262 MG/15 ML BTL PO PRN (12:31)
[2019-02-15] MEDS ORDERED: MENTHOL/PHENOL 1 EACH UD MM PRN (12:31)
[2019-02-15] MEDS ORDERED: MAGNESIUM HYDROX 2400MG/30ML ORAL SUSPENSION 30 ML CUP PO PRN (12:31)
[2019-02-15] MEDS ORDERED: ACETAMINOPHEN 325 MG TABLET (FP) PO PRN ×2 (12:31)
[2019-02-15] MEDS ORDERED: METHADONE HCL 10 MG TABLET (FOR DETOX USE ONLY) PO ONE (12:31)
[2019-02-15] MEDS ORDERED: IBUPROFEN 400 MG TABLET (FP) PO PRN (12:31)
[2019-02-15] MEDS ORDERED: cloNIDine HCL 0.1 MG TABLET PO PRN (12:31)
[2019-02-15] MEDS ORDERED: MELATONIN 5 MG TABLETS PO PRN (12:31)
[2019-02-15] MEDS: chlordiazePOXIDE HCL 25 MG CAPSULE PO SCH ×2 (14:38→20:24)
[2019-02-15 17:11] LABS: HEMATOCRIT 39.6 % (32.4-45.2); MCH 30.2 pg (25.7-33.7); MCHC 32.9 g/dl (32.0-36.0); MEAN CELL VOLUME 91.8 fl (80-96); MEAN PLT VOLUME 9.1 fl (7.5-11.1); PLATELET COUNT 240 K/MM3 (134-434); RBC 4.32 M/mm3 (3.60-5.2); RDW 13.8 % (11.6-15.6); WHITE BLOOD COUNT 6.4 K/mm3 (4.0-10.0)
[2019-02-15 17:24] LABS: ALBUMIN 3.5 g/dl (3.4-5.0); BILIRUBIN,TOTAL 0.3 mg/dL (0.2-1); BLOOD UREA NITROGEN 11.3 mg/dL (7-18); CALCIUM 8.9 mg/dL (8.5-10.1); CREATININE 0.7 mg/dL (0.55-1.3); POTASSIUM 3.2 mmol/L (3.5-5.1); TOT PROT 6.9 g/dl (6.4-8.2)
[2019-02-15] MEDS: METHOCARBAMOL 500 MG TABLET PO PRN (17:30)
--- NOTE | 2019-02-15 20:03 | PN ---
[facility] Progress Note Note: Patient had requested a methadone detox on admission and now has decided to not detox. Patient will return to [facility] upon discharge if interested in a methadone detox. Will continue patient on verified maintenance dose of Methadone 40 mg PO Daily, beginning 02/16. Patient will continue on Libru[facility] detox.
[2019-02-15] MEDS: THIAMINE HCL 100 MG TABLET (FP) PO SCH (21:49)
[2019-02-15] MEDS: RANITIDINE HCL 150 MG TABLET (FP) PO SCH (21:49)
[2019-02-15] MEDS: risperiDONE 2 MG TABLET PO SCH (21:49)
[2019-02-16] MEDS: chlordiazePOXIDE HCL 10 MG CAPSULE PO PRN ×2 (03:19→19:06)
[2019-02-16] MEDS: METHADONE HCL 40 MG DISPERSABLE TABLET PO SCH (06:11)
[2019-02-16] MEDS: chlordiazePOXIDE HCL 25 MG CAPSULE PO SCH ×3 (06:11→21:29)
[2019-02-16] MEDS: PRENATAL VITAMINS W/ FOLIC ACID TABLET (FP) PO SCH (09:45)
[2019-02-16] MEDS: NICOTINE 7 MG/24 HOURS TOPICAL PATCH TD SCH (09:45)
[2019-02-16] MEDS: risperiDONE 2 MG TABLET PO SCH (09:45)
[2019-02-16] MEDS: RANITIDINE HCL 150 MG TABLET (FP) PO SCH (09:45)
[2019-02-16] MEDS ORDERED: METHADONE HCL 5 MG TABLET (FOR DETOX USE ONLY) PO ONE (10:00)
[2019-02-16] MEDS ORDERED: SERTRALINE HCL 50 MG TABLET (FP) PO SCH (10:00)
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
[2019-02-16] MEDS: METHOCARBAMOL 500 MG TABLET PO PRN (12:13)
[2019-02-16] MEDS ORDERED: ALBUTEROL SO4 8 GM HFA INHALER IH PRN (12:41)
--- NOTE | 2019-02-16 12:45 | PN ---
[facility] CIWA - CIWA Score Nausea/Vomitin-No Nausea/No Vomiting Muscle Tremors: 3 Anxiety: 4-Mod. Anxious/Guarded Agitation: 3 Paroxysmal Sweats: 3 Orientation: 0-Oriented Tacttile Disturbances: 0-None Auditory Disturbances: 0-None Visual Disturbances: 0-None Headache: 0-None Present CIWA-Ar Total Score: 13 BHS Progress Note (SOAP) Subjective: sweats mild shakes interrupted sleep insomnia irritable Objective: 02/16/19 12:43 Vital Signs Temperature 98.2 F 02/16/19 11:28 Pulse Rate 75 02/16/19 11:28 Respiratory Rate 18 02/16/19 11:28 Blood Pressure 134/88 02/16/19 11:28 O2 Sat by Pulse Oximetry (%) Laboratory Tests 02/15/19 02/15/19 02/15/19 11:59 13:20 13:20 WBC 6.4 RBC 4.32 Hgb 13.0 Hct 39.6 MCV 91.8 MCH 30.2 MCHC 32.9 RDW 13.8 Plt Count 240 MPV 9.1 Sodium 141 Potassium 3.2 L Chloride 106 Carbon Dioxide 26 Anion Gap 9 BUN 11.3 Creatinine 0.7 Est GFR (CKD-EPI)AfAm 113.05 Est GFR (CKD-EPI)NonAf 97.54 POC Glucometer Random Glucose 110 H Calcium 8.9 Total Bilirubin 0.3 AST 18 ALT 28 Alkaline Phosphatase 91 Total Protein 6.9 Albumin 3.5 POC Urine HCG, Qual Negative RPR Titer 02/15/19 02/16/19 13:20 06:08 WBC RBC Hgb Hct MCV MCH MCHC RDW Plt Count MPV Sodium Potassium Chloride Carbon Dioxide Anion Gap BUN Creatinine Est GFR (CKD-EPI)AfAm Est GFR (CKD-EPI)NonAf POC Glucometer 112 Random Glucose Calcium Total Bilirubin AST ALT Alkaline Phosphatase Total Protein Albumin POC Urine HCG, Qual RPR Titer Nonreactive labs noted low potassium 3.2 order kdur 20meq daily x 2 days aaox3 ambulating safely with walker no acute distress Assessment: 02/16/19 12:44 withdrawal sx Plan: continue detox increase fluids melatonin 10mg qhs prn
[2019-02-16] MEDS: POTASSIUM CHLORIDE TABS 20 MEQ TABLET.ER (FP) PO SCH (12:53)
[2019-02-16] MEDS ORDERED: MELATONIN 5 MG TABLETS PO PRN (21:00)
[2019-02-16] MEDS: THIAMINE HCL 100 MG TABLET (FP) PO SCH (21:29)
[2019-02-16] MEDS: QUEtiapine FUMARATE 50 MG TABLET PO SCH (21:29)
[2019-02-16] MEDS: risperiDONE 1 MG TABLET (FP) PO SCH (21:29)
[2019-02-17] MEDS ORDERED: METHADONE HCL 10 MG TABLET PO SCH (06:00)
[2019-02-17] MEDS: METHADONE HCL 40 MG DISPERSABLE TABLET PO SCH (06:18)
[2019-02-17] MEDS: chlordiazePOXIDE 5 MG CAPSULE PO SCH ×3 (06:18→21:55)
[2019-02-17] MEDS ORDERED: METHADONE HCL 10 MG TABLET (FOR DETOX USE ONLY) PO ONE (10:00)
[2019-02-17] MEDS: POTASSIUM CHLORIDE TABS 20 MEQ TABLET.ER (FP) PO SCH (10:21)
[2019-02-17] MEDS: PRENATAL VITAMINS W/ FOLIC ACID TABLET (FP) PO SCH (10:21)
[2019-02-17] MEDS: risperiDONE 1 MG TABLET (FP) PO SCH ×2 (10:21→22:55)
[2019-02-17] MEDS: NICOTINE 7 MG/24 HOURS TOPICAL PATCH TD SCH (10:22)
--- NOTE | 2019-02-17 12:12 | PN ---
[facility] CIWA - CIWA Score Nausea/Vomitin-No Nausea/No Vomiting Muscle Tremors: 3 Anxiety: 2 Agitation: 2 Paroxysmal Sweats: 2 Orientation: 0-Oriented Tacttile Disturbances: 0-None Auditory Disturbances: 0-None Visual Disturbances: 0-None Headache: 0-None Present CIWA-Ar Total Score: 9 BHS Progress Note (SOAP) Subjective: sweats anxiety Objective: 02/17/19 12:07 Vital Signs Temperature 98.1 F 02/17/19 09:28 Pulse Rate 61 02/17/19 09:28 Respiratory Rate 16 02/17/19 09:28 Blood Pressure 121/72 02/17/19 09:28 O2 Sat by Pulse Oximetry (%) Laboratory Tests 02/15/19 02/15/19 02/15/19 11:59 13:20 13:20 WBC 6.4 RBC 4.32 Hgb 13.0 Hct 39.6 MCV 91.8 MCH 30.2 MCHC 32.9 RDW 13.8 Plt Count 240 MPV 9.1 Sodium 141 Potassium 3.2 L Chloride 106 Carbon Dioxide 26 Anion Gap 9 BUN 11.3 Creatinine 0.7 Est GFR (CKD-EPI)AfAm 113.05 Est GFR (CKD-EPI)NonAf 97.54 POC Glucometer Random Glucose 110 H Calcium 8.9 Total Bilirubin 0.3 AST 18 ALT 28 Alkaline Phosphatase 91 Total Protein 6.9 Albumin 3.5 POC Urine HCG, Qual Negative RPR Titer 02/15/19 02/16/19 13:20 06:08 WBC RBC Hgb Hct MCV MCH MCHC RDW Plt Count MPV Sodium Potassium Chloride Carbon Dioxide Anion Gap BUN Creatinine Est GFR (CKD-EPI)AfAm Est GFR (CKD-EPI)NonAf POC Glucometer 112 Random Glucose Calcium Total Bilirubin AST ALT Alkaline Phosphatase Total Protein Albumin POC Urine HCG, Qual RPR Titer Nonreactive labs noted mild low potassium 3.2; currently potassium ordered aaox3 ambulating no acute distress Assessment: 02/17/19 12:08 withdrawals Plan: continue detox increase fluids
[2019-02-17] MEDS: METHOCARBAMOL 500 MG TABLET PO PRN (15:09)
[2019-02-17] MEDS: chlordiazePOXIDE HCL 10 MG CAPSULE PO PRN (17:21)
[2019-02-17] MEDS: THIAMINE HCL 100 MG TABLET (FP) PO SCH (22:55)
[2019-02-17] MEDS: QUEtiapine FUMARATE 50 MG TABLET PO SCH (22:55)
[2019-02-18] MEDS: METHADONE HCL 40 MG DISPERSABLE TABLET PO SCH (05:48)
[2019-02-18] MEDS: chlordiazePOXIDE HCL 10 MG CAPSULE PO PRN ×2 (05:48→17:35)
[2019-02-18] MEDS ORDERED: METHADONE HCL 5 MG TABLET (FOR DETOX USE ONLY) PO ONE (06:00)
[2019-02-18] MEDS: chlordiazePOXIDE HCL 10 MG CAPSULE PO SCH ×3 (06:50→22:00)
[2019-02-18] MEDS: risperiDONE 1 MG TABLET (FP) PO SCH ×2 (10:28→22:13)
[2019-02-18] MEDS: PRENATAL VITAMINS W/ FOLIC ACID TABLET (FP) PO SCH (10:28)
[2019-02-18] MEDS: POTASSIUM CHLORIDE TABS 20 MEQ TABLET.ER (FP) PO SCH (10:28)
[2019-02-18] MEDS: NICOTINE 7 MG/24 HOURS TOPICAL PATCH TD SCH (10:28)
--- NOTE | 2019-02-18 13:21 | PN ---
S CIWA - CIWA Score Nausea/Vomitin-No Nausea/No Vomiting Muscle Tremors: 2 Anxiety: 1-Mildly Anxious Agitation: 1-Slight > Activity Paroxysmal Sweats: No Perspiration Orientation: 0-Oriented Tacttile Disturbances: 0-None Auditory Disturbances: 0-None Visual Disturbances: 0-None Headache: 0-None Present CIWA-Ar Total Score: 4 BHS Progress Note (SOAP) Subjective: sweats body aches anxiety Objective: 02/18/19 13:20 Vital Signs Temperature 98.1 F 02/18/19 13:01 Pulse Rate 91 H 02/18/19 13:01 Respiratory Rate 18 02/18/19 13:01 Blood Pressure 130/72 02/18/19 13:01 O2 Sat by Pulse Oximetry (%) aaox3 ambulating no acute distress Assessment: 02/18/19 13:20 mild withdrawals Plan: continue detox increase fluids d/c in am
[2019-02-18] MEDS: QUEtiapine FUMARATE 50 MG TABLET PO SCH (22:13)
[2019-02-18] MEDS: THIAMINE HCL 100 MG TABLET (FP) PO SCH (22:14)
[2019-02-19] MEDS ORDERED: chlordiazePOXIDE HCL 10 MG CAPSULE PO ONE (05:00)
[2019-02-19] MEDS: METHADONE HCL 40 MG DISPERSABLE TABLET PO SCH (06:19)
--- NOTE | 2019-02-19 09:43 | DS ---
[facility] Detox Discharge Summary Admission Date: 02/15/19 Discharge Date: 02/19/19 - History Present History: Alcohol Dependence, Cannabis Dependence, Cocaine Dependence, Opioid Dependence - Physical Exam Results Vital Signs: Vital Signs Temperature 98.2 F 02/19/19 06:00 Pulse Rate 92 H 02/19/19 06:00 Respiratory Rate 18 02/19/19 06:00 Blood Pressure 132/85 02/19/19 06:00 O2 Sat by Pulse Oximetry (%) - Treatment Hospital Course: Detox Protocol Followed, Detoxed Safely - Medication Discharge Medications: Ambulatory Orders Quetiapine Fumarate [Seroquel -] 50 mg PO HS #30 tablet 07/31/17 Albuterol Sulfate Inhaler - [Ventolin HFA Inhaler -] 2 inh IH Q4H PRN #1 inhaler 08/03/17 Ranitidine [Zantac -] 150 mg PO BID #60 tab 08/03/17 Sertraline HCl [Zoloft -] 100 mg PO DAILY 10/08/18 Risperidone [Risperdal -] 2 mg PO BID 02/15/19 - Diagnosis (1) Alcohol dependence with uncomplicated withdrawal Current Visit: Yes Status: Chronic (2) Cannabis dependence Current Visit: Yes Status: Chronic (3) Cocaine dependence Current Visit: Yes Status: Chronic Qualifiers: Substance use status: uncomplicated Qualified Code(s): F14.20 - Cocaine dependence, uncomplicated (4) Opioid dependence with withdrawal Current Visit: Yes Status: Chronic (5) Acid reflux Current Visit: Yes Status: Chronic Qualifiers: Esophagitis presence: without esophagitis Qualified Code(s): K21.9 - Gastro -esophageal reflux disease without esophagitis (6) H/O gastric bypass Current Visit: Yes Status: Chronic (7) Nicotine dependence Current Visit: Yes Status: Chronic Qualifiers: Nicotine product type: cigarettes Substance use status: in withdrawal Qualified Code(s): F17.213 - Nicotine dependence, cigarettes, with withdrawal - AMA Did Patient Leave Against Medical Advice: No
[2019-02-19 09:58] VITALS: BP 126/76; PULSE 87; TEMP 97.9
[2019-02-19] MEDS: NICOTINE 7 MG/24 HOURS TOPICAL PATCH TD SCH (10:22)
[2019-02-19] MEDS: risperiDONE 1 MG TABLET (FP) PO SCH (10:23)
[2019-02-19] MEDS: PRENATAL VITAMINS W/ FOLIC ACID TABLET (FP) PO SCH (10:23)
== END 2019-02-19 12:26 | disposition home or self-care (01) | DRG 773 ==
LOC: YASAS 11:16 → Y6N 12:55
PROVIDERS: ADMIT Allergy & Immunology; ATTEND Allergy & Immunology
PROC: HZ2ZZZZ Detoxification Services for Substance Abuse Treatment (ICD-10-PCS; principal; 2019-02-15)
DX: F10.230 Alcohol dependence with withdrawal, uncomplicated (principal); F11.23 Opioid dependence with withdrawal; F14.20 Cocaine dependence, uncomplicated; F12.20 Cannabis dependence, uncomplicated; F17.210 Nicotine dependence, cigarettes, uncomplicated; F19.280 Other psychoactive substance dependence with psychoactive substance-induced anxiety disorder; F19.282 Other psychoactive substance dependence with psychoactive substance-induced sleep disorder; F20.0 Paranoid schizophrenia; F41.8 Other specified anxiety disorders; F31.9 Bipolar disorder, unspecified; I10 Essential (primary) hypertension; K21.9 Gastro-esophageal reflux disease without esophagitis; J45.909 Unspecified asthma, uncomplicated; E87.6 Hypokalemia; Z96.643 Presence of artificial hip joint, bilateral; Z98.84 Bariatric surgery status; Z99.89 Dependence on other enabling machines and devices; Z88.2 Allergy status to sulfonamides
CPT/HCPCS: 36415; 80053; 81025; 82962; 85027; 86593; J2794

== ENCOUNTER 2019-03-31 09:18 | Inpatient (IN) | payer BC ==
[2019-03-31 09:57] VITALS: BMI 26.6
--- NOTE | 2019-03-31 10:50 | HP ---
COWS - Scale Resting Pulse: 1= [place] 81-100 Sweatin= Chills/Flushing Restless Observation: 1= Difficult to Sit Still Pupil Size: 1= Pupils >than Normal Bone or Joint Aches: 2= Severe Diffuse Aches Runny Nose/ Eye Tearin= Nasal Congestion GI Upset > 30mins: 2= Nausea/Diarrhea Tremor Observation: 2= Slight Tremor Visible Yawning Observation: 1= 1-2x During Session Anxiety or Irritability: 1=Feels Anxious/Irritable Goose Flesh Skin: 3=Piloerection COWS Score: 16 CIWA Score Nausea/Vomitin Muscle Tremors: 3 Anxiety: 3 Agitation: 2 Paroxysmal Sweats: 3 Orientation: 1-Uncertain about Date Tacttile Disturbances: 0-None Auditory Disturbances: 0-None Visual Disturbances: 0-None Headache: 0-None Present CIWA-Ar Total Score: 15 - Admission Criteria OASAS Guidelines: Admission for Medically Managed Detox: Requires at least one of the followin. CIWA greater than 12 2. Seizures within the past 24 hours 3. Delirium tremens within the past 24 hours 4. Hallucinations within the past 24 hours 5. Acute intervention needed for co occurring medical disorder 6. Acute intervention needed for co occurring psychiatric disorder 7. Severe withdrawal that cannot be handled at a lower level of care (continued vomiting, continued diarrhea, abnormal vital signs) requiring intravenous medication and/or fluids 8. Admitting History and Physical - Admission Chief Complaint: " I failed again and am suing heroin, crack and alcohol again. " History of Present Illness: 54 black female with alcohol dependence, opioid dependence and crack use disorder. She is in withdrawals. She was last here in 02/15/19 for detox and then rehab. She however did not complete rehab to problems on the floor. She was abstinent for 3 weeks and then relapsed again. She is currently using heroin 2 bags daily, last used yesterday She is smoking 4-5 ciggarettes per day. She is using crack $40 daily, last used yesterday. She drinks 1 pint of vodka daily, last used yesterday. She denies blackouts or withdrawal seizures. Psych: Anxiety, Depression, Schizophrenia - last took psychiatric medications 2 weeks ago. PMH: Asthma, HTN, GERD from gastric bypass surgery, Arthritis with bilateral hip involvement. She walks with walker Psurg: Hip replacements bilaterally, Bariatric surgery. She domiciled and lives with her daughter. She feels that she cannot abstain on her own and that she cannot remain sober without more structured help. History Source: Patient Limitations to Obtaining History: No Limitations - Past Medical History Cardiovascular: Yes: HTN ...LMP: 11/11/13 Psych: Yes: Anxiety, Depression, Schizophrenia (schizophrenia in past) Musculoskeletal: Yes: Chronic low back pain Rheumatology: Yes: Other (bilateral hip arthritis) - Past Surgical History Additional Past Surgical History: Hip replacements and Bariatric surgery. - Advance Directives Advance Directives: No: Living Will, Health Care Proxy, DNR - Smoking History Smoking history: Current some day smoker Have you smoked in the past 12 months: Yes Aproximately how many cigarettes per day: 2 If you are a former smoker, when did you quit?: 3 MONTHS AGO - Alcohol/Substance Use Hx Alcohol Use: Yes Number of Drinks Daily: 10 History of Substance Use: reports: Cocaine, Heroin - Social History Usual Living Arrangement: Yes: With Child Do you think of yourself as: Straight/Heterosexual ADL: Family Assistance Occupation: , unemployed History of Recent Travel: No Admission [facility] Allergies/Adverse Reactions: Allergies Allergy/AdvReac Type Severity Reaction Status Date / Time Sulfa (Sulfonamide Allergy Intermediate Hives Verified 03/31/19 09:50 Antibiotics) [Sulfa(Sulfonamide Antibiotics)] - Ebola screening Have you traveled outside of the country in the last 21 days: No Have you had contact with anyone from an Ebola affected area: No Have you been sick,other than usual withdrawal symptoms: No Do you have a fever: No - Review of Systems Constitutional: Diaphoresis EENT: reports: No Symptoms Reported Respiratory: reports: No Symptoms reported Cardiac: reports: No Symptoms Reported GI: reports: Nausea, Vomiting, Abdominal cramping : reports: No Symptoms Reported Musculoskeletal: reports: No Symptoms Reported Integumentary: reports: No Symptoms Reported Neuro: reports: No Symptoms reported Endocrine: reports: No Symptoms Reported Hematology: reports: No Symptoms Reported Psychiatric: reports: Agitated, Depressed Other Systems: Reviewed and Negative Patient History - Patient Medical History Hx Anemia: Yes (d/t gastric bypass) Hx Asthma: Yes Hx Chronic Obstructive Pulmonary Disease (COPD): No Hx Cancer: No Hx Cardiac Disorders: No Hx Congestive Heart Failure: No Hx Hypertension: Yes (Not on meds.) Hx Hypercholesterolemia: No Hx Pacemaker: No HX Cerebrovascular Accident: No Hx Seizures: No Hx Dementia: No Hx Diabetes: No Hx Gastrointestinal Disorders: Yes (Acid reflux from hx of gastric bypass.) Hx Liver Disease: No Hx Genitourinary Disorders: No Hx Sexually Transmitted Disorders: No Hx Renal Disease (ESRD): No Hx Thyroid Disease: No Hx Human Immunodeficiency Virus (HIV): No (negative) Hx Hepatitis C: No (negative) Hx Depression: Yes Hx Suicide Attempt: No (no si at this time) Hx Bipolar Disorder: Yes (not taking meds) Hx Schizophrenia: No - Patient Surgical History Past Surgical History: Yes Hx Neurologic Surgery: No Hx Cataract Extraction: No Hx Cardiac Surgery: No Hx Lung Surgery: No Hx Breast Surgery: No Hx Breast Biopsy: No Hx Abdominal Surgery: No Hx Appendectomy: No Hx Cholecystectomy: Yes (SX--10 YRS AGO) Hx Section: Yes (X1--16 YRS AGO) Hx Orthopedic Surgery: Yes (HIP SX--X5 DUE TO HIP ANOMALY) Other Surgical History: bariatric surgery-sleeve in 2014 Anesthesia Reaction: No - PPD History Date: 02/17/19 Results: 0 MM PPD to be Administered?: No - Reproductive History Last Menstrual Period: 11/11/13 - Smoking Cessation Smoking history: Current some day smoker Have you smoked in the past 12 months: Yes Aproximately how many cigarettes per day: 2 If you are a former smoker, when did you quit?: 3 MONTHS AGO Hx Chewing Tobacco Use: No Initiated information on smoking cessation: Yes 'Breaking Loose' booklet given: 03/31/19 - Substances abused Alcohol Substance route: Oral Frequency: Daily Amount used: 1 pints of vodka Age of first use: 17 Date of last use: 03/30/19 Marijuana/Hashish Substance route: Smoking Frequency: Daily Amount used: $5 bag Age of first use: 13 Date of last use: 03/30/19 Cocaine Substance route: Smoking Frequency: Daily Amount used: 2 bags Age of first use: 17 Date of last use: 03/30/19 Heroin Substance route: Inhalation Frequency: Daily Amount used: 2 bags Age of first use: 26 Date of last use: 03/30/19 Rohpnol Substance route: Oral Frequency: Daily Amount used: 1 pints of vodka Age of first use: 24 Date of last use: 02/14/19 Admission Physical Exam BHS - Vital Signs Vital Signs: Vital Signs - 24 hr 03/31/19 09:52 Temperature 97 F L Pulse Rate 93 H Respiratory 17 Rate Blood Pressure 149/87 - Physical General Appearance: Yes: Tremorous, Irritable, Sweating, Anxious HEENTM: Yes: EOMI, Hearing grossly Normal, Normal ENT Inspection, Normocephalic , Normal Voice, MARIANELA, Pharynx Normal, Tm's normal Respiratory: Yes: Chest Non-Tender, Lungs Clear, Normal Breath Sounds, No Respiratory Distress, No Accessory Muscle Use Neck: Yes: No masses,lesions,Nodules, Supple, Trachea in good position Breast: Yes: Breast Exam Deferred Cardiology: Yes: Regular Rhythm, S1, S2, Tachycardia Abdominal: Yes: Non Tender, Soft, Increased Bowel Sounds, Surgical Scar Genitourinary: Yes: Within Normal Limits Back: Yes: Normal Inspection Musculoskeletal: Yes: full range of Motion, Pelvis Stable Extremities: Yes: Normal Capillary Refill 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 NML intact, Fully Oriented, Alert, Motor Strength 5/5, Normal Mood/Affect, Normal Response Integumentary: Yes: Normal Color, Warm Lymphatic: Yes: Within Normal Limits - Diagnostic (1) Acid reflux Current Visit: Yes Status: Chronic Qualifiers: Esophagitis presence: without esophagitis Qualified Code(s): K21.9 - Gastro -esophageal reflux disease without esophagitis (2) Alcohol dependence with uncomplicated withdrawal Current Visit: Yes Status: Chronic (3) Asthma Current Visit: Yes Status: Chronic (4) Cannabis dependence Current Visit: Yes Status: Chronic (5) Cocaine dependence Current Visit: Yes Status: Chronic Qualifiers: Substance use status: uncomplicated Qualified Code(s): F14.20 - Cocaine dependence, uncomplicated (6) H/O gastric bypass Current Visit: Yes Status: Chronic (7) Hip joint replacement by other means Current Visit: Yes Status: Chronic (8) History of asthma Current Visit: Yes Status: Chronic (9) Insomnia Current Visit: Yes Status: Chronic Qualifiers: Insomnia type: unspecified Qualified Code(s): G47.00 - Insomnia, unspecified (10) Nicotine dependence Current Visit: Yes Status: Chronic Qualifiers: Nicotine product type: cigarettes Substance use status: in withdrawal Qualified Code(s): F17.213 - Nicotine dependence, cigarettes, with withdrawal (11) Opioid dependence with withdrawal Current Visit: Yes Status: Chronic (12) Paranoid schizophrenia Current Visit: Yes Status: Chronic Comment: According to records + self- report. (13) Walker as ambulation aid Current Visit: Yes Status: Chronic Screened but not Admitted - Documentation of Visit Screened but not Admitted: No Breathalyzer - Breathalyzer Breathalyzer: 0 Vital Signs - Vital Signs Vital signs refused: No Urine Drug Screen - Test Device Lot number: [id number] Expiration date: 11/25/20 - Control Is test valid?: Yes - Results Drug screen NEGATIVE: No Urine drug screen results: THC-Marijuana, CINTHIA-Cocaine, MOP-Opiates Inpatient Rehab Admission - Rehab Decision to Admit Inpatient rehab admission?: No
[2019-03-31] MEDS ORDERED: BISMUTH SUBSALICYLATE 262 MG/15 ML BTL PO PRN (11:04)
[2019-03-31] MEDS ORDERED: MAGNESIUM HYDROX 2400MG/30ML ORAL SUSPENSION 30 ML CUP PO PRN (11:04)
[2019-03-31] MEDS ORDERED: MAGNESIUM CITRATE 300 ML BOTTLE PO PRN (11:04)
[2019-03-31] MEDS ORDERED: ACETAMINOPHEN 325 MG TABLET (FP) PO PRN (11:04)
[2019-03-31] MEDS ORDERED: MENTHOL/PHENOL 1 EACH UD MM PRN (11:04)
[2019-03-31] MEDS ORDERED: MAG HYDROX/AL HYDROX/SIMETH 30 ML UNIT-DOSE CUP PO PRN (11:04)
[2019-03-31] MEDS ORDERED: ALBUTEROL SO4 8 GM HFA INHALER IH PRN (11:07)
[2019-03-31] MEDS ORDERED: METHADONE HCL 10 MG TABLET (FOR DETOX USE ONLY) PO ONE (12:10)
[2019-03-31] MEDS: LORazepam 2 MG TABLET PO SCH ×3 (12:24→22:03)
[2019-03-31] MEDS: cloNIDine HCL 0.1 MG TABLET PO PRN (15:08)
[2019-03-31 18:25] LABS: HEMATOCRIT 40.4 % (32.4-45.2); HEMOGLOBIN 13.3 GM/dL (10.7-15.3); MCH 29.8 pg (25.7-33.7); MCHC 32.8 g/dl (32.0-36.0); MEAN CELL VOLUME 90.7 fl (80-96); PLATELET COUNT 227 K/MM3 (134-434); RBC 4.45 M/mm3 (3.60-5.2); RDW 14.5 % (11.6-15.6); WHITE BLOOD COUNT 6.5 K/mm3 (4.0-10.0)
[2019-03-31 18:34] LABS: ALBUMIN 3.9 g/dl (3.4-5.0); BILIRUBIN,TOTAL 0.4 mg/dL (0.2-1); BLOOD UREA NITROGEN 9.3 mg/dL (7-18); CALCIUM 9.3 mg/dL (8.5-10.1); CREATININE 0.6 mg/dL (0.55-1.3); POTASSIUM 3.4 mmol/L (3.5-5.1); TOT PROT 7.4 g/dl (6.4-8.2)
[2019-03-31] MEDS: LORazepam 1 MG TABLET PO PRN (19:35)
[2019-03-31] MEDS: THIAMINE HCL 100 MG TABLET (FP) PO SCH (22:03)
[2019-04-01] MEDS: LORazepam 2 MG TABLET PO SCH ×4 (05:42→22:03)
[2019-04-01] MEDS: hydrOXYzine PAMOATE 25 MG CAPSULE (FP) PO PRN (05:44)
[2019-04-01] MEDS: LORazepam 1 MG TABLET PO PRN (07:50)
[2019-04-01] MEDS ORDERED: METHADONE HCL 10 MG TABLET (FOR DETOX USE ONLY) ONE (09:36)
[2019-04-01] MEDS ORDERED: METHADONE HCL 5 MG TABLET (FOR DETOX USE ONLY) ONE (09:37)
[2019-04-01] MEDS ORDERED: METHADONE (DETOX) 20 MG, METHADONE (DETOX) 5 MG PO ONE (10:00)
[2019-04-01] MEDS: PRENATAL VITAMINS W/ FOLIC ACID TABLET (FP) PO SCH (10:34)
[2019-04-01] MEDS: NICOTINE 14 MG/24 HOURS TOPICAL PATCH TD SCH (10:34)
[2019-04-01] MEDS: METHOCARBAMOL 500 MG TABLET PO PRN ×2 (11:16→16:37)
--- NOTE | 2019-04-01 12:52 | PN ---
S CIWA - CIWA Score Nausea/Vomitin-Mild Nausea/No Vomiting Muscle Tremors: 2 Anxiety: 4-Mod. Anxious/Guarded Agitation: 2 Paroxysmal Sweats: 2 Orientation: 0-Oriented Tacttile Disturbances: 1-Very Mild Itch/Numbness Auditory Disturbances: 0-None Visual Disturbances: 0-None Headache: 2-Mild CIWA-Ar Total Score: 14 BHS COWS - Scale Resting Pulse: 0= [place] 80 or Below Sweatin= Chills/Flushing Restless Observation: 0= Sits Still Pupil Size: 1= Pupils >than Normal Bone or Joint Aches: 1= Mild Discomfort Runny Nose/ Eye Tearin= Nasal Congestion GI Upset > 30mins: 2= Nausea/Diarrhea Tremor Observation of Outstretched Hands: 2= Slight Tremor Visible Yawning Observation: 0= None Anxiety or Irritability: 2=Irritable/Anxious Goose Flesh Skin: 3=Piloerection COWS Score: 13 BHS Progress Note (SOAP) Subjective: 54 years old female admitted on 03/31/19 for alcohol and opiate withdrawal sx management treated with ativan and methadone detox regimen ambulating on hallway with walker x 2 years due to hips replacement "two years ago" Objective: 04/01/19 12:49 Vital Signs Temperature 98.8 F 04/01/19 09:20 Pulse Rate 83 04/01/19 09:20 Respiratory Rate 18 04/01/19 09:20 Blood Pressure 94/57 L 04/01/19 09:20 O2 Sat by Pulse Oximetry (%) Laboratory Last Values WBC 6.5 K/mm3 (4.0-10.0) 03/31/19 11:25 RBC 4.45 M/mm3 (3.60-5.2) 03/31/19 11:25 Hgb 13.3 GM/dL (10.7-15.3) 03/31/19 11:25 Hct 40.4 % (32.4-45.2) 03/31/19 11:25 MCV 90.7 fl (80-96) 03/31/19 11:25 MCH 29.8 pg (25.7-33.7) 03/31/19 11:25 MCHC 32.8 g/dl (32.0-36.0) 03/31/19 11:25 RDW 14.5 % (11.6-15.6) 03/31/19 11:25 Plt Count 227 K/MM3 (134-434) 03/31/19 11:25 MPV 9.0 fl (7.5-11.1) 03/31/19 11:25 Sodium 138 mmol/L (136-145) 03/31/19 11:25 Potassium 3.4 mmol/L (3.5-5.1) L 03/31/19 11:25 Chloride 104 mmol/L (98-107) 03/31/19 11:25 Carbon Dioxide 26 mmol/L (21-32) 03/31/19 11:25 Anion Gap 9 MMOL/L (8-16) 03/31/19 11:25 BUN 9.3 mg/dL (7-18) 03/31/19 11:25 Creatinine 0.6 mg/dL (0.55-1.3) 03/31/19 11:25 Est GFR (CKD-EPI)AfAm 118.93 03/31/19 11:25 Est GFR (CKD-EPI)NonAf 102.61 03/31/19 11:25 Random Glucose 120 mg/dL (74-106) H 03/31/19 11:25 Calcium 9.3 mg/dL (8.5-10.1) 03/31/19 11:25 Total Bilirubin 0.4 mg/dL (0.2-1) 03/31/19 11:25 AST 154 U/L (15-37) H 03/31/19 11:25 ALT 93 U/L (13-61) H 03/31/19 11:25 Alkaline Phosphatase 139 U/L (45-117) H 03/31/19 11:25 Total Protein 7.4 g/dl (6.4-8.2) 03/31/19 11:25 Albumin 3.9 g/dl (3.4-5.0) 03/31/19 11:25 POC Urine HCG, Qual Negative 03/31/19 10:40 RPR Titer Nonreactive (NONREACTIVE) 03/31/19 11:25 lab noted low K+ ast elevation Assessment: 04/01/19 12:52 alcohol opiate withdrawal sx K+ supplement repeat K+ 04/02/19 repeat ast 04/04/19 Plan: ativan and methadone detox regimen
--- NOTE | 2019-04-01 14:04 | CONSULT ---
[facility] Psychiatric Consult - Data Date of interview: 04/01/19 Admission source: [facility] Identifying data: Patient is a 54 year old single female, mother of one, unemployed, domiciled, and is supported by [facility]. This is one of multiple admissions for patient. Patient admitted to for alcohol, cocaine and opiate dependence. Substance Abuse History: Smoking Cessation. Smoking history: Current some day smoker. Have you smoked in the past 12 months: Yes. Aproximately how many cigarettes per day: 2. If you are a former smoker, when did you quit?: 3 MONTHS AGO. Hx Chewing Tobacco Use: No. Initiated information on smoking cessation: Yes. 'Breaking Loose' booklet given: 03/31/19. - Substances abused. Alcohol. Substance route: Oral. Frequency: Daily. Amount used: 1 pints of vodka. Age of first use: 17. Date of last use: 03/30/19. Marijuana/Hashish. Substance route: Smoking. Frequency: Daily. Amount used: $ 5 bag. Age of first use: 13. Date of last use: 03/30/19. Cocaine. Substance route: Smoking. Frequency: Daily. Amount used: 2 bags. Age of first use: 17. Date of last use: 03/30/19. Heroin. Substance route: Inhalation. Frequency: Daily. Amount used: 2 bags. Age of first use: 26. Date of last use: 03/30/19. Rohpnol. Substance route: Oral. Frequency: Daily. Amount used: 1 pints of vodka. Age of first use: 24. Date of last use : 02/14/19 Medical History: Significant for bronchial asthma, hypertension, GERD, antecedent of gastric bypass, neuropathy and a history of right knee replacement. Psychiatric History: Patient unable to provide a cohesive psychiatric history as she had difficulty remaining awake throughout interview with insurance underwriter. Stated to insurance underwriter that she has a history of multiple psychiatric hospitalizations and claims to be provided with outpatient psychiatric care and is prescribed risperdal (unsure of dose). As per previous notes patient has a diagnosis of paranoid schizophrenia. Nghia has been hospitalized at [facility] (renamed [facility]) and [facility]. Patient has been prescribed risperda 1mg BID + Seroquel 50mg HS during previous admissions. Patient denies history of suicide attempt. Physical/Sexual Abuse/Trauma History: denies. Mental Status Exam - Mental Status Exam Alert and Oriented to: Time, Place, Person Cognitive Function: Good Patient Appearance: Well Groomed Mood: Withdrawn Affect: Mood Congruent Patient Behavior: Sedated, Fatigued Speech Pattern: Delayed Voice Loudness: Moderately Soft/Quiet Thought Process: Goal Oriented Thought Disorder: Not Present Hallucinations: Denies Suicidal Ideation: Denies Homicidal Ideation: Denies Insight/Judgement: Poor Sleep: Fair Appetite: Fair Muscle strength/Tone: Normal Gait/Station: Other (Patient uses a rolling walker to ambulate.) Psychiatric Findings - Problem List ([place] 1, 2,3) (1) Alcohol dependence with uncomplicated withdrawal Current Visit: Yes Status: Chronic (2) Cannabis dependence Current Visit: Yes Status: Chronic (3) Cocaine dependence Current Visit: Yes Status: Chronic Qualifiers: Substance use status: uncomplicated Qualified Code(s): F14.20 - Cocaine dependence, uncomplicated (4) Nicotine dependence Current Visit: Yes Status: Chronic Qualifiers: Nicotine product type: cigarettes Substance use status: in withdrawal Qualified Code(s): F17.213 - Nicotine dependence, cigarettes, with withdrawal (5) Opioid dependence with withdrawal Current Visit: Yes Status: Chronic (6) Paranoid schizophrenia Current Visit: Yes Status: Chronic Comment: According to records + self- report. - Initial Treatment Plan Initial Treatment Plan: Psychoeducation provided. Rehab in progress. Will order risperdal 1mg BID. Benefits and side effects discussed. Verbal consent given.
[2019-04-01] MEDS: cloNIDine HCL 0.1 MG TABLET PO PRN (14:14)
[2019-04-01] MEDS: POTASSIUM CHLORIDE ORAL LIQUID 20 MEQ/15 ML PO SCH ×2 (15:23→22:02)
[2019-04-01] MEDS: IBUPROFEN 400 MG TABLET (FP) PO PRN (16:38)
[2019-04-01] MEDS: THIAMINE HCL 100 MG TABLET (FP) PO SCH (22:03)
[2019-04-01] MEDS: risperiDONE 1 MG TABLET (FP) PO SCH (22:03)
[2019-04-01] MEDS: MELATONIN 5 MG TABLETS PO PRN (22:05)
[2019-04-02] MEDS: ACETAMINOPHEN 325 MG TABLET (FP) PO PRN (05:42)
[2019-04-02] MEDS: LORazepam 1 MG TABLET PO SCH ×4 (05:42→22:13)
[2019-04-02] MEDS: METHOCARBAMOL 500 MG TABLET PO PRN ×2 (05:45→19:19)
[2019-04-02] MEDS ORDERED: METHADONE HCL 10 MG TABLET (FOR DETOX USE ONLY) PO ONE (10:00)
[2019-04-02] MEDS: risperiDONE 1 MG TABLET (FP) PO SCH ×2 (11:00→22:13)
[2019-04-02] MEDS: PRENATAL VITAMINS W/ FOLIC ACID TABLET (FP) PO SCH (11:00)
[2019-04-02] MEDS: NICOTINE 14 MG/24 HOURS TOPICAL PATCH TD SCH (11:01)
--- NOTE | 2019-04-02 12:33 | PN ---
[facility] CIWA - CIWA Score Nausea/Vomitin-Mild Nausea/No Vomiting Muscle Tremors: 1-None Visible, but [place] Anxiety: 2 Agitation: 2 Paroxysmal Sweats: No Perspiration Orientation: 0-Oriented Tacttile Disturbances: 1-Very Mild Itch/Numbness Auditory Disturbances: 0-None Visual Disturbances: 1-Very Mild Sensitivity Headache: 1-Very Mild CIWA-Ar Total Score: 9 S COWS - Scale Resting Pulse: 1= [place] 81-100 Sweatin= Chills/Flushing Restless Observation: 1= Difficult to Sit Still Pupil Size: 1= Pupils >than Normal Bone or Joint Aches: 1= Mild Discomfort Runny Nose/ Eye Tearin= Nasal Congestion GI Upset > 30mins: 2= Nausea/Diarrhea Tremor Observation of Outstretched Hands: 1= Tremor [place], Not Seen Yawning Observation: 1= 1-2x During Session Anxiety or Irritability: 2=Irritable/Anxious Goose Flesh Skin: 0=Smooth Skin COWS Score: 12 [facility] Progress Note (SOAP) Subjective: alert,irritable,anxious,interrupted sleep,nausea,pain in the hip Objective: 04/02/19 12:30 Vital Signs Temperature 96.4 F L 04/02/19 09:25 Pulse Rate 92 H 04/02/19 09:25 Respiratory Rate 18 04/02/19 09:25 Blood Pressure 120/69 04/02/19 09:25 O2 Sat by Pulse Oximetry (%) Laboratory Last Values WBC 6.5 K/mm3 (4.0-10.0) 03/31/19 11:25 RBC 4.45 M/mm3 (3.60-5.2) 03/31/19 11:25 Hgb 13.3 GM/dL (10.7-15.3) 03/31/19 11:25 Hct 40.4 % (32.4-45.2) 03/31/19 11:25 MCV 90.7 fl (80-96) 03/31/19 11:25 MCH 29.8 pg (25.7-33.7) 03/31/19 11:25 MCHC 32.8 g/dl (32.0-36.0) 03/31/19 11:25 RDW 14.5 % (11.6-15.6) 03/31/19 11:25 Plt Count 227 K/MM3 (134-434) 03/31/19 11:25 MPV 9.0 fl (7.5-11.1) 03/31/19 11:25 Sodium 138 mmol/L (136-145) 03/31/19 11:25 Potassium 3.8 mmol/L (3.5-5.1) 04/02/19 07:45 Chloride 104 mmol/L (98-107) 03/31/19 11:25 Carbon Dioxide 26 mmol/L (21-32) 03/31/19 11:25 Anion Gap 9 MMOL/L (8-16) 03/31/19 11:25 BUN 9.3 mg/dL (7-18) 03/31/19 11:25 Creatinine 0.6 mg/dL (0.55-1.3) 03/31/19 11:25 Est GFR (CKD-EPI)AfAm 118.93 03/31/19 11:25 Est GFR (CKD-EPI)NonAf 102.61 03/31/19 11:25 Random Glucose 120 mg/dL (74-106) H 03/31/19 11:25 Calcium 9.3 mg/dL (8.5-10.1) 03/31/19 11:25 Total Bilirubin 0.4 mg/dL (0.2-1) 03/31/19 11:25 AST 154 U/L (15-37) H 03/31/19 11:25 ALT 93 U/L (13-61) H 03/31/19 11:25 Alkaline Phosphatase 139 U/L (45-117) H 03/31/19 11:25 Total Protein 7.4 g/dl (6.4-8.2) 03/31/19 11:25 Albumin 3.9 g/dl (3.4-5.0) 03/31/19 11:25 POC Urine HCG, Qual Negative 03/31/19 10:40 RPR Titer Nonreactive (NONREACTIVE) 03/31/19 11:25 Assessment: 04/02/19 12:31 withdrawal symptom Plan: continue detox methadone and ativan regimen,fasting glucose in am,alt,ast in am
[2019-04-02] MEDS: THIAMINE HCL 100 MG TABLET (FP) PO SCH (22:13)
[2019-04-02] MEDS: MELATONIN 5 MG TABLETS PO PRN (22:14)
[2019-04-03] MEDS ORDERED: LORazepam 0.5 MG TABLET PO PRN
[2019-04-03] MEDS: METHOCARBAMOL 500 MG TABLET PO PRN ×3 (04:23→17:13)
[2019-04-03] MEDS: LORazepam 0.5 MG TABLET PO SCH ×4 (06:42→22:31)
[2019-04-03] MEDS ORDERED: METHADONE (DETOX) 10 MG, METHADONE (DETOX) 5 MG PO ONE (10:00)
[2019-04-03] MEDS ORDERED: METHADONE HCL 5 MG TABLET (FOR DETOX USE ONLY) ONE (10:04)
[2019-04-03] MEDS ORDERED: METHADONE HCL 10 MG TABLET (FOR DETOX USE ONLY) ONE (10:04)
[2019-04-03] MEDS: PRENATAL VITAMINS W/ FOLIC ACID TABLET (FP) PO SCH (11:01)
[2019-04-03] MEDS: risperiDONE 1 MG TABLET (FP) PO SCH ×2 (11:02→22:31)
[2019-04-03] MEDS: NICOTINE 14 MG/24 HOURS TOPICAL PATCH TD SCH (11:02)
--- NOTE | 2019-04-03 14:01 | PN ---
[facility] CIWA - CIWA Score Nausea/Vomitin-No Nausea/No Vomiting Muscle Tremors: None Anxiety: 3 Agitation: 0-Normal Activity Paroxysmal Sweats: 3 Orientation: 0-Oriented Tacttile Disturbances: 0-None Auditory Disturbances: 0-None Visual Disturbances: 0-None Headache: 0-None Present CIWA-Ar Total Score: 6 S COWS - Scale Resting Pulse: 1= [place] 81-100 Sweatin= Beads of Sweat on Face Restless Observation: 1= Difficult to Sit Still Pupil Size: 0= Normal to Room Light Bone or Joint Aches: 0= None Runny Nose/ Eye Tearin= None GI Upset > 30mins: 0= None Tremor Observation of Outstretched Hands: 0= None Yawning Observation: 1= 1-2x During Session Anxiety or Irritability: 2=Irritable/Anxious Goose Flesh Skin: 0=Smooth Skin COWS Score: 8 [facility] Progress Note (SOAP) Subjective: c/o anxiety, irritability, and sweats. Objective: 04/03/19 14:00 Vital Signs 04/03/19 04/03/19 07:34 09:33 Temperature 97.1 F L 98.9 F Pulse Rate 96 H 78 Respiratory 18 16 Rate Blood Pressure 134/78 118/57 L Laboratory Last Values WBC 6.5 K/mm3 (4.0-10.0) 03/31/19 11:25 RBC 4.45 M/mm3 (3.60-5.2) 03/31/19 11:25 Hgb 13.3 GM/dL (10.7-15.3) 03/31/19 11:25 Hct 40.4 % (32.4-45.2) 03/31/19 11:25 MCV 90.7 fl (80-96) 03/31/19 11:25 MCH 29.8 pg (25.7-33.7) 03/31/19 11:25 MCHC 32.8 g/dl (32.0-36.0) 03/31/19 11:25 RDW 14.5 % (11.6-15.6) 03/31/19 11:25 Plt Count 227 K/MM3 (134-434) 03/31/19 11:25 MPV 9.0 fl (7.5-11.1) 03/31/19 11:25 Sodium 138 mmol/L (136-145) 03/31/19 11:25 Potassium 3.8 mmol/L (3.5-5.1) 04/02/19 07:45 Chloride 104 mmol/L (98-107) 03/31/19 11:25 Carbon Dioxide 26 mmol/L (21-32) 03/31/19 11:25 Anion Gap 9 MMOL/L (8-16) 03/31/19 11:25 BUN 9.3 mg/dL (7-18) 03/31/19 11:25 Creatinine 0.6 mg/dL (0.55-1.3) 03/31/19 11:25 Est GFR (CKD-EPI)AfAm 118.93 03/31/19 11:25 Est GFR (CKD-EPI)NonAf 102.61 03/31/19 11:25 Random Glucose 120 mg/dL (74-106) H 03/31/19 11:25 Calcium 9.3 mg/dL (8.5-10.1) 03/31/19 11:25 Total Bilirubin 0.4 mg/dL (0.2-1) 03/31/19 11:25 AST 154 U/L (15-37) H 03/31/19 11:25 ALT 93 U/L (13-61) H 03/31/19 11:25 Alkaline Phosphatase 139 U/L (45-117) H 03/31/19 11:25 Total Protein 7.4 g/dl (6.4-8.2) 03/31/19 11:25 Albumin 3.9 g/dl (3.4-5.0) 03/31/19 11:25 POC Urine HCG, Qual Negative 03/31/19 10:40 RPR Titer Nonreactive (NONREACTIVE) 03/31/19 11:25 Labs noted. Assessment: 04/03/19 14:00 AOX3, in no acute respiratory distress. Full ROM, ambulating in the unit. Withdrawal symptoms. Plan: continue detox.
[2019-04-03] MEDS: IBUPROFEN 400 MG TABLET (FP) PO PRN (14:12)
[2019-04-03] MEDS: THIAMINE HCL 100 MG TABLET (FP) PO SCH (22:31)
[2019-04-03] MEDS: MELATONIN 5 MG TABLETS PO PRN (22:33)
[2019-04-04] MEDS: METHOCARBAMOL 500 MG TABLET PO PRN ×3 (01:28→17:06)
[2019-04-04] MEDS: ACETAMINOPHEN 325 MG TABLET (FP) PO PRN ×2 (01:28→10:27)
[2019-04-04] MEDS ORDERED: LORazepam 0.5 MG TABLET PO ONE (05:00)
[2019-04-04] MEDS: hydrOXYzine PAMOATE 25 MG CAPSULE (FP) PO PRN ×2 (05:33→13:45)
[2019-04-04] MEDS ORDERED: METHADONE HCL 10 MG TABLET (FOR DETOX USE ONLY) PO ONE (10:00)
[2019-04-04] MEDS: NICOTINE 14 MG/24 HOURS TOPICAL PATCH TD SCH (10:26)
[2019-04-04] MEDS: PRENATAL VITAMINS W/ FOLIC ACID TABLET (FP) PO SCH (10:26)
[2019-04-04] MEDS: risperiDONE 1 MG TABLET (FP) PO SCH ×2 (10:26→22:32)
[2019-04-04] MEDS ORDERED: cloNIDine HCL 0.1 MG TABLET PO PRN (13:59)
--- NOTE | 2019-04-04 14:00 | PN ---
[facility] CIWA - CIWA Score Nausea/Vomitin-No Nausea/No Vomiting Muscle Tremors: 2 Anxiety: 2 Agitation: 1-Slight > Activity Paroxysmal Sweats: No Perspiration Orientation: 0-Oriented Tacttile Disturbances: 0-None Auditory Disturbances: 0-None Visual Disturbances: 0-None Headache: 0-None Present CIWA-Ar Total Score: 5 [facility] COWS - Scale Resting Pulse: 0= [place] 80 or Below Sweatin= Chills/Flushing Restless Observation: 0= Sits Still Pupil Size: 0= Normal to Room Light Bone or Joint Aches: 1= Mild Discomfort Runny Nose/ Eye Tearin= None GI Upset > 30mins: 1= Stomach Cramp Tremor Observation of Outstretched Hands: 1= Tremor [place], Not Seen Yawning Observation: 0= None Anxiety or Irritability: 1=Feels Anxious/Irritable Goose Flesh Skin: 0=Smooth Skin COWS Score: 5 [facility] Progress Note (SOAP) Subjective: 54 years old female admitted on 03/31/19 for alcohol and opiate withdrawal sx management treated with ativan and methadone detox regimen ambulating on hallway steady gait requests valium for anxiety encourage discuss long history of anxiety with the psychiatrist patient reply "never mind" Objective: 04/04/19 13:57 Vital Signs Temperature 98.1 F 04/04/19 13:10 Pulse Rate 68 04/04/19 13:10 Respiratory Rate 18 04/04/19 13:10 Blood Pressure 141/77 04/04/19 13:10 O2 Sat by Pulse Oximetry (%) Laboratory Last Values WBC 6.5 K/mm3 (4.0-10.0) 03/31/19 11:25 RBC 4.45 M/mm3 (3.60-5.2) 03/31/19 11:25 Hgb 13.3 GM/dL (10.7-15.3) 03/31/19 11:25 Hct 40.4 % (32.4-45.2) 03/31/19 11:25 MCV 90.7 fl (80-96) 03/31/19 11:25 MCH 29.8 pg (25.7-33.7) 03/31/19 11:25 MCHC 32.8 g/dl (32.0-36.0) 03/31/19 11:25 RDW 14.5 % (11.6-15.6) 03/31/19 11:25 Plt Count 227 K/MM3 (134-434) 03/31/19 11:25 MPV 9.0 fl (7.5-11.1) 03/31/19 11:25 Sodium 138 mmol/L (136-145) 03/31/19 11:25 Potassium 3.8 mmol/L (3.5-5.1) 04/02/19 07:45 Chloride 104 mmol/L (98-107) 03/31/19 11:25 Carbon Dioxide 26 mmol/L (21-32) 03/31/19 11:25 Anion Gap 9 MMOL/L (8-16) 03/31/19 11:25 BUN 9.3 mg/dL (7-18) 03/31/19 11:25 Creatinine 0.6 mg/dL (0.55-1.3) 03/31/19 11:25 Est GFR (CKD-EPI)AfAm 118.93 03/31/19 11:25 Est GFR (CKD-EPI)NonAf 102.61 03/31/19 11:25 Random Glucose 120 mg/dL (74-106) H 03/31/19 11:25 Calcium 9.3 mg/dL (8.5-10.1) 03/31/19 11:25 Total Bilirubin 0.4 mg/dL (0.2-1) 03/31/19 11:25 AST 154 U/L (15-37) H 03/31/19 11:25 ALT 93 U/L (13-61) H 03/31/19 11:25 Alkaline Phosphatase 139 U/L (45-117) H 03/31/19 11:25 Total Protein 7.4 g/dl (6.4-8.2) 03/31/19 11:25 Albumin 3.9 g/dl (3.4-5.0) 03/31/19 11:25 POC Urine HCG, Qual Negative 03/31/19 10:40 RPR Titer Nonreactive (NONREACTIVE) 03/31/19 11:25 lab noted alcohol related ast elevation follow up with aftercare 04/04/19 14:00 Assessment: 04/04/19 14:00 alcohol and opiate withdrawal sx management Plan: ativan and methadone detox regimen
[2019-04-04] MEDS: THIAMINE HCL 100 MG TABLET (FP) PO SCH (22:32)
[2019-04-04] MEDS: MELATONIN 5 MG TABLETS PO PRN (22:33)
[2019-04-05] MEDS: METHOCARBAMOL 500 MG TABLET PO PRN ×2 (02:13→12:44)
[2019-04-05] MEDS: hydrOXYzine PAMOATE 25 MG CAPSULE (FP) PO PRN (02:13)
[2019-04-05] MEDS: ACETAMINOPHEN 325 MG TABLET (FP) PO PRN ×2 (05:41→12:44)
[2019-04-05] MEDS ORDERED: METHADONE HCL 5 MG TABLET (FOR DETOX USE ONLY) PO ONE (06:00)
[2019-04-05] MEDS: NICOTINE 14 MG/24 HOURS TOPICAL PATCH TD SCH (10:05)
[2019-04-05] MEDS: risperiDONE 1 MG TABLET (FP) PO SCH (10:06)
[2019-04-05] MEDS: PRENATAL VITAMINS W/ FOLIC ACID TABLET (FP) PO SCH (10:06)
[2019-04-05 13:34] VITALS: BP 124/71; PULSE 67; TEMP 97.7
--- NOTE | 2019-04-05 14:21 | DS ---
[facility] Detox Discharge Summary Admission Date: 03/31/19 Discharge Date: 04/05/19 - History Present History: Alcohol Dependence, Opioid Dependence Additional Comments: 54 years old female admitted on 03/31/19 for alcohol and opiate withdrawal sx management treated with ativan and methadone detox regimen patient tolerated well alert oriented x 3 cardiac s1s2 regular rate rhythm respiratory clear lung bilaterally on auscultation skin warm and dry ambulating with walker steady gait Pertinent Past History: patient prefers to go to [facility] for aftercare K+ serum level within normal range - Physical Exam Results Vital Signs: Vital Signs Temperature 97.7 F 04/05/19 13:33 Pulse Rate 67 04/05/19 13:33 Respiratory Rate 18 04/05/19 13:33 Blood Pressure 124/71 04/05/19 13:33 O2 Sat by Pulse Oximetry (%) Pertinent Admission Physical Exam Findings: alcohol and opiate withdrawal sx Laboratory Last Values WBC 6.5 K/mm3 (4.0-10.0) 03/31/19 11:25 RBC 4.45 M/mm3 (3.60-5.2) 03/31/19 11:25 Hgb 13.3 GM/dL (10.7-15.3) 03/31/19 11:25 Hct 40.4 % (32.4-45.2) 03/31/19 11:25 MCV 90.7 fl (80-96) 03/31/19 11:25 MCH 29.8 pg (25.7-33.7) 03/31/19 11:25 MCHC 32.8 g/dl (32.0-36.0) 03/31/19 11:25 RDW 14.5 % (11.6-15.6) 03/31/19 11:25 Plt Count 227 K/MM3 (134-434) 03/31/19 11:25 MPV 9.0 fl (7.5-11.1) 03/31/19 11:25 Sodium 138 mmol/L (136-145) 03/31/19 11:25 Potassium 3.8 mmol/L (3.5-5.1) 04/02/19 07:45 Chloride 104 mmol/L (98-107) 03/31/19 11:25 Carbon Dioxide 26 mmol/L (21-32) 03/31/19 11:25 Anion Gap 9 MMOL/L (8-16) 03/31/19 11:25 BUN 9.3 mg/dL (7-18) 03/31/19 11:25 Creatinine 0.6 mg/dL (0.55-1.3) 03/31/19 11:25 Est GFR (CKD-EPI)AfAm 118.93 03/31/19 11:25 Est GFR (CKD-EPI)NonAf 102.61 03/31/19 11:25 Random Glucose 120 mg/dL (74-106) H 03/31/19 11:25 Calcium 9.3 mg/dL (8.5-10.1) 03/31/19 11:25 Total Bilirubin 0.4 mg/dL (0.2-1) 03/31/19 11:25 AST 154 U/L (15-37) H 03/31/19 11:25 ALT 93 U/L (13-61) H 03/31/19 11:25 Alkaline Phosphatase 139 U/L (45-117) H 03/31/19 11:25 Total Protein 7.4 g/dl (6.4-8.2) 03/31/19 11:25 Albumin 3.9 g/dl (3.4-5.0) 03/31/19 11:25 POC Urine HCG, Qual Negative 03/31/19 10:40 RPR Titer Nonreactive (NONREACTIVE) 03/31/19 11:25 lab noted K+ normal range ast elevation patient agrees to follow up with aftercare facility - Treatment Hospital Course: Detox Protocol Followed, Detoxed Safely, Responded well, Discharged Condition Good, Rehab Referral Accepted Patient has Accepted a Rehab Referral to: [facility] - Medication Discharge Medications: Ambulatory Orders Quetiapine Fumarate [Seroquel -] 50 mg PO HS #30 tablet 07/31/17 Sertraline HCl [Zoloft -] 100 mg PO DAILY 10/08/18 Risperidone [Risperdal -] 2 mg PO BID 02/15/19 Albuterol Sulfate Inhaler - [Ventolin HFA Inhaler -] 2 inh IH Q4H PRN #1 inhaler 02/19/19 Naloxone HCl [Narcan] 4 mg NS ASDIR PRN #1 spray 04/04/19 - Diagnosis (1) Alcohol dependence with uncomplicated withdrawal Current Visit: Yes Status: Acute (2) Asthma Current Visit: Yes Status: Chronic (3) Nicotine dependence Current Visit: Yes Status: Acute Qualifiers: Nicotine product type: cigarettes Substance use status: in withdrawal Qualified Code(s): F17.213 - Nicotine dependence, cigarettes, with withdrawal (4) Opioid dependence with withdrawal Current Visit: Yes Status: Acute (5) Walker as ambulation aid Current Visit: Yes Status: Chronic (6) Substance induced mood disorder Current Visit: Yes Status: Suspected - AMA Did Patient Leave Against Medical Advice: No CIWA Score - CIWA Score Nausea/Vomitin-No Nausea/No Vomiting Muscle Tremors: 1-None Visible, but [place] Anxiety: 1-Mildly Anxious Agitation: 0-Normal Activity Paroxysmal Sweats: No Perspiration Orientation: 0-Oriented Tacttile Disturbances: 0-None Auditory Disturbances: 0-None Visual Disturbances: 0-None Headache: 0-None Present CIWA-Ar Total Score: 2 COWS (PN) - Opiate Withdrawal Resting Pulse: 0= [place] 80 or Below Sweatin= Chills/Flushing Restless Observation: 0= Sits Still Pupil Size: 0= Normal to Room Light Bone or Joint Aches: 0= None Runny Nose/ Eye Tearin= None GI Upset > 30mins: 0= None Tremor Observation of Outstretched Hands: 1= Tremor [place], Not Seen Yawning Observation: 0= None Anxiety or Irritability: 0= None Goose Flesh Skin: 0=Smooth Skin COWS Score: 2
== END 2019-04-05 03:36 | disposition home or self-care (01) | DRG 773 ==
LOC: YASAS 09:18 → Y3N 11:18
PROVIDERS: ADMIT Allergy & Immunology; ATTEND Allergy & Immunology
PROC: HZ2ZZZZ Detoxification Services for Substance Abuse Treatment (ICD-10-PCS; principal; 2019-03-31)
DX: F10.230 Alcohol dependence with withdrawal, uncomplicated (principal); F11.23 Opioid dependence with withdrawal; F14.20 Cocaine dependence, uncomplicated; F12.20 Cannabis dependence, uncomplicated; F17.210 Nicotine dependence, cigarettes, uncomplicated; F20.0 Paranoid schizophrenia; F41.8 Other specified anxiety disorders; F32.9 Major depressive disorder, single episode, unspecified; F31.9 Bipolar disorder, unspecified; F19.24 Other psychoactive substance dependence with psychoactive substance-induced mood disorder; G62.9 Polyneuropathy, unspecified; G47.00 Insomnia, unspecified; J45.998 Other asthma; E87.6 Hypokalemia; K21.9 Gastro-esophageal reflux disease without esophagitis; Z99.89 Dependence on other enabling machines and devices; Z96.643 Presence of artificial hip joint, bilateral; Z90.49 Acquired absence of other specified parts of digestive tract
CPT/HCPCS: 36415; 80053; 81025; 84132; 85027; 86593; J0735; J2794

== ENCOUNTER 2020-09-05 08:16 | Inpatient (IN) | payer OTHER ==
[2020-09-05 09:07] VITALS: BMI 28.1
[2020-09-05] MEDS ORDERED: BISMUTH SUBSALICYLATE 524 MG/30 ML UD PO PRN (09:44)
[2020-09-05] MEDS ORDERED: METHADONE HCL 10 MG TABLET (FOR DETOX USE ONLY) PO ONE ×2 (09:44→11:45)
[2020-09-05] MEDS ORDERED: MAGNESIUM HYDROX 2400MG/30ML ORAL SUSPENSION 30 ML CUP PO PRN (09:44)
[2020-09-05] MEDS ORDERED: chlordiazePOXIDE HCL 25 MG CAPSULE PO PRN (09:44)
[2020-09-05] MEDS ORDERED: ACETAMINOPHEN 325 MG TABLET (FP) PO PRN (09:44)
[2020-09-05] MEDS ORDERED: ALBUTEROL SO4 HFA INHALER IH PRN (09:44)
[2020-09-05] MEDS ORDERED: MAGNESIUM CITRATE 300 ML BOTTLE PO PRN (09:44)
[2020-09-05] MEDS ORDERED: MENTHOL/PHENOL 1 EACH UD MM PRN (09:44)
[2020-09-05] MEDS ORDERED: cloNIDine HCL 0.1 MG TABLET PO PRN (09:44)
[2020-09-05] MEDS: NICOTINE 7 MG/24 HOURS TOPICAL PATCH TD SCH (11:38)
[2020-09-05] MEDS: hydrOXYzine PAMOATE 25 MG CAPSULE (FP) PO SCH ×4 (12:04→22:42)
[2020-09-05] MEDS: PRENATAL VITAMINS W/ FOLIC ACID TABLET (FP) PO SCH (12:04)
[2020-09-05] MEDS: ONDANSETRON *ODT* 4 MG TABLET SL PRN (12:23)
[2020-09-05] MEDS: chlordiazePOXIDE HCL 25 MG CAPSULE PO SCH ×3 (12:25→22:39)
[2020-09-05 14:34] LABS: HEMATOCRIT 36.2 % (32.4-45.2); HEMOGLOBIN 12.2 GM/dL (10.7-15.3); MCH 27.8 pg (25.7-33.7); MCHC 33.8 g/dl (32.0-36.0); MEAN CELL VOLUME 82.2 fl (80-96); MEAN PLT VOLUME 8.6 fl (7.5-11.1); PLATELET COUNT 276 K/MM3 (134-434); RBC 4.41 M/mm3 (3.60-5.2); RDW 18.9 % (11.6-15.6)
[2020-09-05 14:48] LABS: CALCIUM 8.7 mg/dL (8.5-10.1)
[2020-09-05 14:49] LABS: ALBUMIN 3.5 g/dl (3.4-5.0); BLOOD UREA NITROGEN 6.9 mg/dL (7-18)
[2020-09-05 14:52] LABS: CREATININE 0.7 mg/dL (0.55-1.3)
[2020-09-05 14:53] LABS: BILIRUBIN,TOTAL 0.3 mg/dL (0.2-1)
[2020-09-05 14:54] LABS: TOT PROT 6.8 g/dl (6.4-8.2)
[2020-09-05] MEDS ORDERED: MELATONIN 5 MG TABLETS PO SCH (22:00)
[2020-09-05] MEDS ORDERED: SUVOREXANT 10 MG TABLET PO PRN (22:00)
[2020-09-05] MEDS: risperiDONE 1 MG TABLET PO SCH (22:39)
[2020-09-05] MEDS: THIAMINE HCL 100 MG TABLET (FP) PO SCH (22:39)
[2020-09-05] MEDS: MIRTAZAPINE 15 MG TABLET (FP) PO SCH (22:39)
[2020-09-05] MEDS: NICOTINE POLACRILEX 2 MG GUM BUC PRN (22:44)
[2020-09-06] MEDS: chlordiazePOXIDE HCL 25 MG CAPSULE PO SCH ×4 (05:32→22:11)
[2020-09-06] MEDS: hydrOXYzine PAMOATE 25 MG CAPSULE (FP) PO SCH ×5 (05:33→22:10)
[2020-09-06] MEDS: IBUPROFEN 400 MG TABLET (FP) PO PRN (05:33)
[2020-09-06] MEDS: ONDANSETRON *ODT* 4 MG TABLET SL PRN (08:56)
[2020-09-06] MEDS ORDERED: METHADONE HCL 5 MG TABLET (FOR DETOX USE ONLY) ONE (09:11)
[2020-09-06] MEDS ORDERED: METHADONE HCL 10 MG TABLET (FOR DETOX USE ONLY) ONE (09:11)
[2020-09-06] MEDS ORDERED: METHADONE (DETOX) 20 MG, METHADONE (DETOX) 5 MG PO ONE (10:00)
[2020-09-06] MEDS: NICOTINE 7 MG/24 HOURS TOPICAL PATCH TD SCH (10:11)
[2020-09-06] MEDS: PRENATAL VITAMINS W/ FOLIC ACID TABLET (FP) PO SCH (10:11)
[2020-09-06] MEDS: risperiDONE 1 MG TABLET PO SCH ×2 (10:11→22:10)
[2020-09-06] MEDS: NICOTINE POLACRILEX 2 MG GUM BUC PRN (10:16)
[2020-09-06] MEDS ORDERED: COLLOIDAL OATMEAL 1 BAR EACH TP PRN (12:43)
[2020-09-06] MEDS: MAG HYDROX/AL HYDROX/SIMETH 30 ML UNIT-DOSE CUP PO PRN (14:11)
[2020-09-06] MEDS: MINERAL OIL/PETROLAT/WATER TOPICAL CREAM 113 GM JAR TP SCH (14:43)
[2020-09-06] MEDS: METHOCARBAMOL 500 MG TABLET PO PRN (15:53)
[2020-09-06] MEDS: SUVOREXANT 20 MG TABLET PO PRN (22:10)
[2020-09-06] MEDS: THIAMINE HCL 100 MG TABLET (FP) PO SCH (22:10)
[2020-09-06] MEDS: MIRTAZAPINE 15 MG TABLET (FP) PO SCH (22:11)
[2020-09-07] MEDS: MINERAL OIL/PETROLAT/WATER TOPICAL CREAM 113 GM JAR TP SCH ×3 (00:55→22:09)
[2020-09-07] MEDS: METHOCARBAMOL 500 MG TABLET PO PRN ×2 (01:41→10:45)
[2020-09-07] MEDS: IBUPROFEN 400 MG TABLET (FP) PO PRN ×2 (03:59→17:51)
[2020-09-07] MEDS: chlordiazePOXIDE HCL 25 MG CAPSULE PO SCH ×4 (06:04→22:09)
[2020-09-07] MEDS: hydrOXYzine PAMOATE 25 MG CAPSULE (FP) PO SCH ×5 (06:05→22:09)
[2020-09-07] MEDS ORDERED: METHADONE HCL 10 MG TABLET (FOR DETOX USE ONLY) PO ONE (10:00)
[2020-09-07] MEDS: PRENATAL VITAMINS W/ FOLIC ACID TABLET (FP) PO SCH (10:43)
[2020-09-07] MEDS: risperiDONE 1 MG TABLET PO SCH ×2 (10:43→22:09)
[2020-09-07] MEDS: NICOTINE 7 MG/24 HOURS TOPICAL PATCH TD SCH (10:44)
[2020-09-07] MEDS: amLODIPine BESYLATE 10 MG TABLET (FP) PO SCH (12:50)
[2020-09-07] MEDS: ACETAMINOPHEN 325 MG TABLET (FP) PO PRN (14:15)
[2020-09-07] MEDS: MIRTAZAPINE 15 MG TABLET (FP) PO SCH (22:08)
[2020-09-07] MEDS: THIAMINE HCL 100 MG TABLET (FP) PO SCH (22:09)
[2020-09-08] MEDS ORDERED: chlordiazePOXIDE HCL 10 MG CAPSULE PO PRN
[2020-09-08] MEDS: ACETAMINOPHEN 325 MG TABLET (FP) PO PRN (03:49)
[2020-09-08] MEDS: METHOCARBAMOL 500 MG TABLET PO PRN ×2 (04:01→10:27)
[2020-09-08] MEDS: chlordiazePOXIDE HCL 10 MG CAPSULE PO SCH ×4 (05:51→22:11)
[2020-09-08] MEDS: hydrOXYzine PAMOATE 25 MG CAPSULE (FP) PO SCH ×4 (05:51→18:07)
[2020-09-08] MEDS: MAG HYDROX/AL HYDROX/SIMETH 30 ML UNIT-DOSE CUP PO PRN (05:52)
[2020-09-08 06:07] LABS: SARS-CoV-2 NAA Not Detected (Not Detected)
[2020-09-08] MEDS ORDERED: METHADONE HCL 10 MG TABLET (FOR DETOX USE ONLY) ONE (09:23)
[2020-09-08] MEDS ORDERED: METHADONE HCL 5 MG TABLET (FOR DETOX USE ONLY) ONE (09:23)
[2020-09-08] MEDS ORDERED: METHADONE (DETOX) 10 MG, METHADONE (DETOX) 5 MG PO ONE (10:00)
[2020-09-08] MEDS: PRENATAL VITAMINS W/ FOLIC ACID TABLET (FP) PO SCH (10:24)
[2020-09-08] MEDS: amLODIPine BESYLATE 10 MG TABLET (FP) PO SCH (10:24)
[2020-09-08] MEDS: risperiDONE 1 MG TABLET PO SCH ×2 (10:24→22:12)
[2020-09-08] MEDS: IBUPROFEN 400 MG TABLET (FP) PO PRN ×2 (10:27→18:11)
[2020-09-08] MEDS: MINERAL OIL/PETROLAT/WATER TOPICAL CREAM 113 GM JAR TP SCH ×2 (10:29→22:18)
[2020-09-08] MEDS: NICOTINE 7 MG/24 HOURS TOPICAL PATCH TD SCH (10:29)
[2020-09-08] MEDS: LIDOCAINE 5% TOPICAL PATCH TP SCH (13:28)
[2020-09-08] MEDS: MIRTAZAPINE 15 MG TABLET (FP) PO SCH (22:11)
[2020-09-08] MEDS: THIAMINE HCL 100 MG TABLET (FP) PO SCH (22:12)
[2020-09-08] MEDS: LIDOCAINE PATCH REMOVAL MC SCH (22:17)
[2020-09-08] MEDS: SUVOREXANT 20 MG TABLET PO PRN (22:17)
[2020-09-09] MEDS: hydrOXYzine PAMOATE 25 MG CAPSULE (FP) PO SCH ×6 (00:05→22:06)
[2020-09-09] MEDS: METHOCARBAMOL 500 MG TABLET PO PRN ×3 (03:48→22:08)
[2020-09-09] MEDS: IBUPROFEN 400 MG TABLET (FP) PO PRN ×2 (05:24→14:44)
[2020-09-09] MEDS: chlordiazePOXIDE HCL 10 MG CAPSULE PO SCH ×2 (05:26→17:41)
[2020-09-09] MEDS: MAG HYDROX/AL HYDROX/SIMETH 30 ML UNIT-DOSE CUP PO PRN ×2 (09:17→14:32)
[2020-09-09] MEDS: ACETAMINOPHEN 325 MG TABLET (FP) PO PRN (09:17)
[2020-09-09] MEDS ORDERED: METHADONE HCL 10 MG TABLET (FOR DETOX USE ONLY) PO ONE (10:00)
[2020-09-09] MEDS: risperiDONE 1 MG TABLET PO SCH ×2 (10:34→22:06)
[2020-09-09] MEDS: amLODIPine BESYLATE 10 MG TABLET (FP) PO SCH (10:34)
[2020-09-09] MEDS: LIDOCAINE 5% TOPICAL PATCH TP SCH (10:34)
[2020-09-09] MEDS: MINERAL OIL/PETROLAT/WATER TOPICAL CREAM 113 GM JAR TP SCH (10:34)
[2020-09-09] MEDS: PRENATAL VITAMINS W/ FOLIC ACID TABLET (FP) PO SCH (10:34)
[2020-09-09] MEDS: NICOTINE 7 MG/24 HOURS TOPICAL PATCH TD SCH (10:35)
[2020-09-09] MEDS: FAMOTIDINE 20 MG TABLET PO SCH (14:43)
[2020-09-09] MEDS: THIAMINE HCL 100 MG TABLET (FP) PO SCH (22:06)
[2020-09-09] MEDS: MIRTAZAPINE 15 MG TABLET (FP) PO SCH (22:06)
[2020-09-10] MEDS: LIDOCAINE PATCH REMOVAL MC SCH ×2 (00:11→21:06)
[2020-09-10] MEDS: MINERAL OIL/PETROLAT/WATER TOPICAL CREAM 113 GM JAR TP SCH ×3 (00:11→21:07)
[2020-09-10] MEDS: METHOCARBAMOL 500 MG TABLET PO PRN ×2 (04:39→14:10)
[2020-09-10] MEDS ORDERED: chlordiazePOXIDE HCL 10 MG CAPSULE PO ONE (05:00)
[2020-09-10] MEDS ORDERED: METHADONE HCL 5 MG TABLET (FOR DETOX USE ONLY) PO ONE (06:00)
[2020-09-10] MEDS: hydrOXYzine PAMOATE 25 MG CAPSULE (FP) PO SCH ×5 (07:15→21:03)
[2020-09-10] MEDS: LIDOCAINE 5% TOPICAL PATCH TP SCH (10:28)
[2020-09-10] MEDS: NICOTINE 7 MG/24 HOURS TOPICAL PATCH TD SCH (10:29)
[2020-09-10] MEDS: risperiDONE 1 MG TABLET PO SCH ×2 (10:29→21:05)
[2020-09-10] MEDS: amLODIPine BESYLATE 10 MG TABLET (FP) PO SCH (10:29)
[2020-09-10] MEDS: FAMOTIDINE 20 MG TABLET PO SCH (10:29)
[2020-09-10] MEDS: PRENATAL VITAMINS W/ FOLIC ACID TABLET (FP) PO SCH (10:29)
[2020-09-10] MEDS: IBUPROFEN 400 MG TABLET (FP) PO PRN (12:45)
[2020-09-10] MEDS: MIRTAZAPINE 15 MG TABLET (FP) PO SCH (21:03)
[2020-09-10] MEDS: THIAMINE HCL 100 MG TABLET (FP) PO SCH (21:05)
[2020-09-11] MEDS: METHOCARBAMOL 500 MG TABLET PO PRN (01:23)
[2020-09-11] MEDS ORDERED: chlordiazePOXIDE HCL 10 MG CAPSULE PO ONE (05:00)
[2020-09-11] MEDS: hydrOXYzine PAMOATE 25 MG CAPSULE (FP) PO SCH (06:14)
[2020-09-11] MEDS: IBUPROFEN 400 MG TABLET (FP) PO PRN ×2 (06:45→13:42)
[2020-09-11] MEDS: FAMOTIDINE 20 MG TABLET PO SCH (10:27)
[2020-09-11] MEDS: amLODIPine BESYLATE 10 MG TABLET (FP) PO SCH (10:27)
[2020-09-11] MEDS: risperiDONE 1 MG TABLET PO SCH ×2 (10:27→21:32)
[2020-09-11] MEDS: PRENATAL VITAMINS W/ FOLIC ACID TABLET (FP) PO SCH (10:27)
[2020-09-11] MEDS: NICOTINE 7 MG/24 HOURS TOPICAL PATCH TD SCH (10:27)
[2020-09-11] MEDS: LIDOCAINE 5% TOPICAL PATCH TP SCH (10:28)
[2020-09-11] MEDS: MINERAL OIL/PETROLAT/WATER TOPICAL CREAM 113 GM JAR TP SCH ×2 (10:28→21:38)
[2020-09-11] MEDS ORDERED: METHOCARBAMOL 500 MG TABLET PO ONE ×2 (13:51→19:18)
[2020-09-11] MEDS: THIAMINE HCL 100 MG TABLET (FP) PO SCH (21:32)
[2020-09-11] MEDS: MIRTAZAPINE 15 MG TABLET (FP) PO SCH (21:32)
[2020-09-11] MEDS: LIDOCAINE PATCH REMOVAL MC SCH (21:36)
[2020-09-11] MEDS ORDERED: SUVOREXANT 10 MG TABLET PO PRN (22:00)
[2020-09-12] MEDS: IBUPROFEN 400 MG TABLET (FP) PO PRN (03:48)
[2020-09-12] MEDS: MAG HYDROX/AL HYDROX/SIMETH 30 ML UNIT-DOSE CUP PO PRN (05:08)
[2020-09-12 09:17] VITALS: BP 113/65; PULSE 105; TEMP 97.3
[2020-09-12] MEDS ORDERED: METHOCARBAMOL 500 MG TABLET PO ONE (09:36)
[2020-09-12] MEDS: NICOTINE 7 MG/24 HOURS TOPICAL PATCH TD SCH (09:59)
[2020-09-12] MEDS: risperiDONE 1 MG TABLET PO SCH (09:59)
[2020-09-12] MEDS: amLODIPine BESYLATE 10 MG TABLET (FP) PO SCH (09:59)
[2020-09-12] MEDS: FAMOTIDINE 20 MG TABLET PO SCH (09:59)
[2020-09-12] MEDS: MINERAL OIL/PETROLAT/WATER TOPICAL CREAM 113 GM JAR TP SCH (10:01)
[2020-09-12] MEDS: LIDOCAINE 5% TOPICAL PATCH TP SCH (10:01)
[2020-09-12] MEDS: PRENATAL VITAMINS W/ FOLIC ACID TABLET (FP) PO SCH (10:02)
== END 2020-09-12 11:35 | disposition other institution (70) | DRG 773 ==
LOC: YASAS 08:16 → Y3N 10:36 → Y6N 11:08
PROVIDERS: ADMIT Allergy & Immunology; ATTEND Allergy & Immunology
PROC: HZ2ZZZZ Detoxification Services for Substance Abuse Treatment (ICD-10-PCS; principal; 2020-09-05)
DX: F11.23 Opioid dependence with withdrawal (principal); F10.230 Alcohol dependence with withdrawal, uncomplicated; F13.230 Sedative, hypnotic or anxiolytic dependence with withdrawal, uncomplicated; F14.20 Cocaine dependence, uncomplicated; F12.20 Cannabis dependence, uncomplicated; F17.210 Nicotine dependence, cigarettes, uncomplicated; F20.0 Paranoid schizophrenia; F19.282 Other psychoactive substance dependence with psychoactive substance-induced sleep disorder; F19.24 Other psychoactive substance dependence with psychoactive substance-induced mood disorder; I10 Essential (primary) hypertension; J45.909 Unspecified asthma, uncomplicated; G62.9 Polyneuropathy, unspecified; K21.9 Gastro-esophageal reflux disease without esophagitis; A53.0 Latent syphilis, unspecified as early or late; Z96.643 Presence of artificial hip joint, bilateral; Z99.89 Dependence on other enabling machines and devices; Z98.84 Bariatric surgery status; Z88.2 Allergy status to sulfonamides
CPT/HCPCS: 36415; 80053; 82962; 85027; 86593; 86780; 93005; 93010; C9803; J0735; J2794; Q0162; U0003; U0005

== ENCOUNTER 2021-07-02 14:47 | Inpatient (IN) | payer OTHER ==
[2021-07-02] MEDS ORDERED: MAGNESIUM CITRATE 300 ML BOTTLE PO PRN (17:01)
[2021-07-02] MEDS ORDERED: MENTHOL/PHENOL 1 EACH UD MM PRN (17:01)
[2021-07-02] MEDS ORDERED: NICOTINE POLACRILEX 2 MG GUM BUC PRN (17:01)
[2021-07-02] MEDS ORDERED: MAGNESIUM HYDROX 2400MG/30ML ORAL SUSPENSION 30 ML CUP PO PRN (17:01)
[2021-07-02] MEDS ORDERED: ACETAMINOPHEN 325 MG TABLET (FP) PO PRN (17:01)
[2021-07-02] MEDS ORDERED: BISMUTH SUBSALICYLATE 524 MG/30 ML PO PRN (17:01)
[2021-07-02] MEDS ORDERED: LOPERAMIDE HCL 2 MG CAPSULE PO PRN (17:01)
[2021-07-02] MEDS ORDERED: MAG HYDROX/AL HYDROX/SIMETH 30 ML UNIT-DOSE CUP PO PRN (17:01)
[2021-07-02] MEDS ORDERED: guaiFENesin 200 MG/10 ML 10 ML UNIT-DOSE CUPS PO PRN (17:03)
[2021-07-02 22:14] VITALS: BMI 26.2
[2021-07-02] MEDS ORDERED: chlordiazePOXIDE HCL 25 MG CAPSULE PO PRN (23:01)
[2021-07-02] MEDS ORDERED: LISINOPRIL 5 MG TABLET PO ONE (23:01)
[2021-07-02] MEDS: METHOCARBAMOL 500 MG TABLET PO PRN (23:25)
[2021-07-02] MEDS: hydrOXYzine PAMOATE 25 MG CAPSULE (FP) PO PRN (23:25)
[2021-07-02] MEDS: chlordiazePOXIDE HCL 25 MG CAPSULE PO SCH (23:26)
[2021-07-02] MEDS: THIAMINE HCL 100 MG TABLET (FP) PO SCH (23:26)
[2021-07-02] MEDS: MELATONIN 5 MG TABLETS PO PRN (23:29)
[2021-07-03] MEDS: IBUPROFEN 400 MG TABLET (FP) PO PRN (00:40)
[2021-07-03] MEDS: ONDANSETRON *ODT* 4 MG TABLET SL PRN ×2 (01:50→15:39)
[2021-07-03] MEDS: chlordiazePOXIDE HCL 25 MG CAPSULE PO SCH ×4 (06:04→22:21)
[2021-07-03] MEDS: hydrOXYzine PAMOATE 25 MG CAPSULE (FP) PO PRN ×3 (06:05→22:21)
[2021-07-03] MEDS: METHOCARBAMOL 500 MG TABLET PO PRN ×3 (06:05→22:21)
[2021-07-03] MEDS ORDERED: methaDONE HCL 10 MG TABLET PO ONE (09:45)
[2021-07-03] MEDS: PRENATAL VITAMINS W/ FOLIC ACID TABLET (FP) PO SCH (10:13)
[2021-07-03] MEDS: METHYL SALICYLATE/MENTHOL OINT 30 GM TUBE TP SCH ×3 (10:13→22:20)
[2021-07-03] MEDS: NICOTINE 10 MG CARTRIDGE (INHALER) IH PRN ×2 (13:19→20:26)
[2021-07-03] MEDS: risperiDONE 1 MG TABLET PO SCH (22:20)
[2021-07-03] MEDS: MIRTAZAPINE 15 MG TABLET (FP) PO SCH (22:20)
[2021-07-03] MEDS: THIAMINE HCL 100 MG TABLET (FP) PO SCH (22:21)
[2021-07-04] MEDS ORDERED: methaDONE HCL 40 MG DISPERSABLE TABLET PO ONE (06:00)
[2021-07-04 06:08] LABS: SARS-CoV-2 NAA Not Detected (Not Detected)
[2021-07-04] MEDS: ACETAMINOPHEN 325 MG TABLET (FP) PO PRN (06:15)
[2021-07-04] MEDS: METHOCARBAMOL 500 MG TABLET PO PRN (06:15)
[2021-07-04] MEDS: chlordiazePOXIDE HCL 25 MG CAPSULE PO SCH ×4 (06:15→22:37)
[2021-07-04] MEDS: PRENATAL VITAMINS W/ FOLIC ACID TABLET (FP) PO SCH (10:17)
[2021-07-04] MEDS: risperiDONE 1 MG TABLET PO SCH ×2 (10:17→22:37)
[2021-07-04] MEDS: METHYL SALICYLATE/MENTHOL OINT 30 GM TUBE TP SCH ×2 (10:17→23:06)
[2021-07-04] MEDS: MIRTAZAPINE 15 MG TABLET (FP) PO SCH (22:37)
[2021-07-04] MEDS: THIAMINE HCL 100 MG TABLET (FP) PO SCH (22:37)
[2021-07-04] MEDS: MELATONIN 5 MG TABLETS PO PRN (22:38)
[2021-07-05] MEDS ORDERED: chlordiazePOXIDE HCL 10 MG CAPSULE PO PRN
[2021-07-05] MEDS ORDERED: methaDONE HCL 40 MG DISPERSABLE TABLET ONE (04:57)
[2021-07-05] MEDS ORDERED: methaDONE HCL 10 MG TABLET ONE (04:57)
[2021-07-05] MEDS ORDERED: methaDONE HCL 10 MG TABLET PO SCH (06:00)
[2021-07-05] MEDS: methaDONE 40 MG, methaDONE 10 MG PO SCH (07:39)
[2021-07-05] MEDS: chlordiazePOXIDE HCL 10 MG CAPSULE PO SCH ×4 (07:40→23:04)
[2021-07-05] MEDS: METHYL SALICYLATE/MENTHOL OINT 30 GM TUBE TP SCH ×2 (11:12→23:03)
[2021-07-05] MEDS: risperiDONE 1 MG TABLET PO SCH ×2 (11:17→23:03)
[2021-07-05] MEDS: PRENATAL VITAMINS W/ FOLIC ACID TABLET (FP) PO SCH (11:20)
[2021-07-05 13:40] LABS: HEMATOCRIT 35.6 % (32.4-45.2); HEMOGLOBIN 11.6 GM/dL (10.7-15.3); MCH 28.5 pg (25.7-33.7); MCHC 32.6 g/dl (32.0-36.0); MEAN CELL VOLUME 87.5 fl (80-96); MEAN PLT VOLUME 8.7 fl (7.5-11.1); PLATELET COUNT 186 10^3/uL (134-434); RBC 4.07 M/mm3 (3.60-5.2); RDW 14.6 % (11.6-15.6); WHITE BLOOD COUNT 6.9 K/mm3 (4.0-10.0)
[2021-07-05 13:41] LABS: ALBUMIN 3.1 g/dl (3.4-5.0); BLOOD UREA NITROGEN 19.6 mg/dL (7-18)
[2021-07-05 13:44] LABS: CREATININE 0.7 mg/dL (0.55-1.3)
[2021-07-05 13:45] LABS: TOT PROT 6.1 g/dl (6.4-8.2)
[2021-07-05 13:46] LABS: BILIRUBIN,TOTAL 0.7 mg/dL (0.2-1)
[2021-07-05] MEDS: MIRTAZAPINE 15 MG TABLET (FP) PO SCH (23:04)
[2021-07-05] MEDS: THIAMINE HCL 100 MG TABLET (FP) PO SCH (23:37)
[2021-07-06] MEDS ORDERED: chlordiazePOXIDE HCL 10 MG CAPSULE PO SCH (05:00)
[2021-07-06] MEDS: methaDONE 40 MG, methaDONE 10 MG PO SCH (08:47)
[2021-07-06] MEDS: risperiDONE 1 MG TABLET PO SCH (10:08)
[2021-07-06] MEDS: PRENATAL VITAMINS W/ FOLIC ACID TABLET (FP) PO SCH (10:09)
[2021-07-06] MEDS: METHYL SALICYLATE/MENTHOL OINT 30 GM TUBE TP SCH ×2 (10:10→22:35)
[2021-07-06] MEDS ORDERED: LORazepam 2 MG TABLET PO PRN (10:51)
[2021-07-06] MEDS ORDERED: LORazepam 0.5 MG TABLET PO PRN (10:56)
[2021-07-06] MEDS ORDERED: methaDONE HCL 10 MG TABLET PO ONE (14:12)
[2021-07-06] MEDS ORDERED: diphenhydrAMINE HCL 25 MG CAPSULE (FP) PO ONE (14:30)
[2021-07-06] MEDS ORDERED: diphenhydrAMINE HCL 25 MG CAPSULE (FP) PO PRN (20:35)
[2021-07-06] MEDS: MELATONIN 5 MG TABLETS PO PRN (22:35)
[2021-07-06] MEDS: THIAMINE HCL 100 MG TABLET (FP) PO SCH (22:35)
[2021-07-07] MEDS ORDERED: methaDONE HCL 40 MG DISPERSABLE TABLET ONE (04:49)
[2021-07-07] MEDS ORDERED: methaDONE HCL 10 MG TABLET ONE (04:49)
[2021-07-07] MEDS ORDERED: chlordiazePOXIDE HCL 10 MG CAPSULE PO ONE (05:00)
[2021-07-07] MEDS: methaDONE 40 MG, methaDONE 10 MG PO SCH (07:36)
[2021-07-07] MEDS: METHYL SALICYLATE/MENTHOL OINT 30 GM TUBE TP SCH ×2 (11:33→22:17)
[2021-07-07] MEDS: PRENATAL VITAMINS W/ FOLIC ACID TABLET (FP) PO SCH (11:33)
[2021-07-07] MEDS: IBUPROFEN 400 MG TABLET (FP) PO PRN (17:59)
[2021-07-07] MEDS: MELATONIN 5 MG TABLETS PO PRN (22:17)
[2021-07-07] MEDS: THIAMINE HCL 100 MG TABLET (FP) PO SCH (22:17)
[2021-07-07] MEDS: ACETAMINOPHEN 325 MG TABLET (FP) PO PRN (22:18)
[2021-07-07] MEDS: METHOCARBAMOL 500 MG TABLET PO PRN (22:18)
[2021-07-08] MEDS ORDERED: methaDONE HCL 10 MG TABLET ONE (04:52)
[2021-07-08] MEDS ORDERED: methaDONE HCL 40 MG DISPERSABLE TABLET ONE (04:52)
[2021-07-08] MEDS: methaDONE 40 MG, methaDONE 10 MG PO SCH (06:27)
[2021-07-08] MEDS: ACETAMINOPHEN 325 MG TABLET (FP) PO PRN (06:39)
[2021-07-08] MEDS: METHOCARBAMOL 500 MG TABLET PO PRN (06:41)
[2021-07-08 09:02] VITALS: BP 151/90; PULSE 78; TEMP 96.9
== END 2021-07-08 09:24 | disposition other institution (70) | DRG 773 ==
LOC: YASAS 14:47 → Y3N 22:25
PROVIDERS: ADMIT Allergy & Immunology; ATTEND Allergy & Immunology
PROC: HZ2ZZZZ Detoxification Services for Substance Abuse Treatment (ICD-10-PCS; principal; 2021-07-02)
DX: F11.23 Opioid dependence with withdrawal (principal); F10.230 Alcohol dependence with withdrawal, uncomplicated; F13.20 Sedative, hypnotic or anxiolytic dependence, uncomplicated; F14.20 Cocaine dependence, uncomplicated; F12.20 Cannabis dependence, uncomplicated; F17.210 Nicotine dependence, cigarettes, uncomplicated; F20.0 Paranoid schizophrenia; F19.24 Other psychoactive substance dependence with psychoactive substance-induced mood disorder; F41.9 Anxiety disorder, unspecified; F32.A Depression, unspecified; G47.00 Insomnia, unspecified; I10 Essential (primary) hypertension; J45.909 Unspecified asthma, uncomplicated; Z96.643 Presence of artificial hip joint, bilateral; M54.50 Low back pain, unspecified; G89.29 Other chronic pain; W19.XXXA Unspecified fall, initial encounter; Y92.239 Unspecified place in hospital as the place of occurrence of the external cause; Z99.89 Dependence on other enabling machines and devices; Z86.19 Personal history of other infectious and parasitic diseases; Z88.2 Allergy status to sulfonamides
CPT/HCPCS: 36415; 71045-TC-FY; 80053; 85027; 86593; 86780; C9803; J2794; Q0162; U0003; U0005

== ENCOUNTER 2021-12-11 13:16 | Inpatient (IN) | payer OTHER ==
[2021-12-11 15:53] VITALS: BMI 22.7
[2021-12-11] MEDS ORDERED: methaDONE HCL 10 MG TABLET (FOR DETOX USE ONLY) PO ONE (16:05)
[2021-12-11] MEDS ORDERED: NICOTINE 10 MG CARTRIDGE (INHALER) IH PRN (16:05)
[2021-12-11] MEDS ORDERED: MAGNESIUM CITRATE 300 ML BOTTLE PO PRN (16:05)
[2021-12-11] MEDS ORDERED: chlordiazePOXIDE HCL 25 MG CAPSULE PO PRN (16:05)
[2021-12-11] MEDS ORDERED: MAG HYDROX/AL HYDROX/SIMETH 30 ML UNIT-DOSE CUP PO PRN (16:05)
[2021-12-11] MEDS ORDERED: cloNIDine HCL 0.1 MG TABLET PO PRN (16:05)
[2021-12-11] MEDS ORDERED: LOPERAMIDE HCL 2 MG CAPSULE PO PRN (16:05)
[2021-12-11] MEDS ORDERED: ONDANSETRON *ODT* 4 MG TABLET SL PRN (16:05)
[2021-12-11] MEDS ORDERED: IBUPROFEN 600 MG TABLET (FP) PO PRN (16:05)
[2021-12-11] MEDS ORDERED: IBUPROFEN 400 MG TABLET (FP) PO PRN (16:05)
[2021-12-11] MEDS ORDERED: ACETAMINOPHEN 325 MG TABLET (FP) PO PRN ×2 (16:05)
[2021-12-11] MEDS ORDERED: MAGNESIUM HYDROX 2400MG/30ML ORAL SUSPENSION 30 ML CUP PO PRN (16:05)
[2021-12-11] MEDS ORDERED: BISMUTH SUBSALICYLATE 524 MG/30 ML PO PRN (16:05)
[2021-12-11] MEDS ORDERED: BENZOCAINE/MENTHOL (CHLORASEPTIC ) LOZENGE MM PRN (16:05)
[2021-12-11] MEDS ORDERED: ALBUTEROL SO4 HFA INHALER IH PRN (16:30)
[2021-12-11] MEDS ORDERED: chlordiazePOXIDE HCL 25 MG CAPSULE ONE (16:48)
[2021-12-11] MEDS ORDERED: methaDONE HCL 10 MG TABLET (FOR DETOX USE ONLY) ONE (16:49)
[2021-12-11] MEDS: chlordiazePOXIDE HCL 25 MG CAPSULE PO SCH ×2 (16:53→22:29)
[2021-12-11] MEDS ORDERED: MELATONIN 5 MG TABLETS PO SCH (22:00)
[2021-12-11] MEDS: THIAMINE HCL 100 MG TABLET (FP) PO SCH (22:29)
[2021-12-11] MEDS: hydrOXYzine PAMOATE 25 MG CAPSULE (FP) PO SCH ×2 (22:29→22:31)
[2021-12-11] MEDS: PRENATAL VITAMINS W/ FOLIC ACID TABLET (FP) PO SCH (22:30)
[2021-12-11] MEDS: METHOCARBAMOL 500 MG TABLET PO PRN (22:30)
[2021-12-12] MEDS: DICYCLOMINE HCL 10 MG CAPSULE PO PRN ×2 (01:36→10:34)
[2021-12-12] MEDS: METHOCARBAMOL 500 MG TABLET PO PRN ×2 (06:55→13:32)
[2021-12-12] MEDS: chlordiazePOXIDE HCL 25 MG CAPSULE PO SCH ×4 (06:56→22:57)
[2021-12-12] MEDS: hydrOXYzine PAMOATE 25 MG CAPSULE (FP) PO SCH ×5 (06:56→22:57)
[2021-12-12] MEDS: amLODIPine BESYLATE 10 MG TABLET (FP) PO SCH (10:34)
[2021-12-12] MEDS: NICOTINE 14 MG/24 HOURS TOPICAL PATCH TD SCH (10:34)
[2021-12-12] MEDS: PRENATAL VITAMINS W/ FOLIC ACID TABLET (FP) PO SCH (10:34)
[2021-12-12 12:07] LABS: HEMATOCRIT 26.7 % (32.4-45.2); HEMOGLOBIN 8.6 GM/dL (10.7-15.3); MCH 23.2 pg (25.7-33.7); MCHC 32.3 g/dl (32.0-36.0); MEAN CELL VOLUME 71.8 fl (80-96); MEAN PLT VOLUME 7.9 fl (7.5-11.1); PLATELET COUNT 286 10^3/uL (134-434); RBC 3.71 M/mm3 (3.60-5.2); RDW 19.3 % (11.6-15.6); WHITE BLOOD COUNT 4.7 K/mm3 (4.0-10.0)
[2021-12-12 12:25] LABS: CALCIUM 8.5 mg/dL (8.5-10.1)
[2021-12-12 12:26] LABS: ALBUMIN 2.9 g/dl (3.4-5.0); BLOOD UREA NITROGEN 5.5 mg/dL (7-18)
[2021-12-12 12:29] LABS: CREATININE 0.5 mg/dL (0.55-1.3)
[2021-12-12 12:31] LABS: BILIRUBIN,TOTAL 0.3 mg/dL (0.2-1); TOT PROT 6.1 g/dl (6.4-8.2)
[2021-12-12] MEDS: risperiDONE 1 MG TABLET PO SCH (22:57)
[2021-12-12] MEDS: THIAMINE HCL 100 MG TABLET (FP) PO SCH (22:57)
[2021-12-12] MEDS: MIRTAZAPINE 15 MG TABLET (FP) PO SCH (22:57)
[2021-12-13] MEDS: chlordiazePOXIDE HCL 25 MG CAPSULE PO SCH ×4 (06:33→22:52)
[2021-12-13] MEDS: hydrOXYzine PAMOATE 25 MG CAPSULE (FP) PO SCH ×5 (06:33→22:29)
[2021-12-13] MEDS ORDERED: methaDONE HCL 10 MG TABLET (FOR DETOX USE ONLY) PO ONE (10:00)
[2021-12-13] MEDS: PRENATAL VITAMINS W/ FOLIC ACID TABLET (FP) PO SCH (10:56)
[2021-12-13] MEDS: METHOCARBAMOL 500 MG TABLET PO PRN ×2 (10:57→18:47)
[2021-12-13] MEDS: amLODIPine BESYLATE 10 MG TABLET (FP) PO SCH (10:57)
[2021-12-13] MEDS: NICOTINE 14 MG/24 HOURS TOPICAL PATCH TD SCH (10:59)
[2021-12-13] MEDS ORDERED: POTASSIUM CHLORIDE ORAL LIQUID 20 MEQ/15 ML PO ONE ×2 (12:30→16:30)
[2021-12-13] MEDS: THIAMINE HCL 100 MG TABLET (FP) PO SCH (22:52)
[2021-12-13] MEDS: risperiDONE 1 MG TABLET PO SCH (22:52)
[2021-12-13] MEDS: MIRTAZAPINE 15 MG TABLET (FP) PO SCH (22:52)
[2021-12-14] MEDS ORDERED: chlordiazePOXIDE HCL 10 MG CAPSULE PO PRN
[2021-12-14] MEDS: chlordiazePOXIDE HCL 10 MG CAPSULE PO SCH ×3 (06:51→18:55)
[2021-12-14] MEDS: hydrOXYzine PAMOATE 25 MG CAPSULE (FP) PO SCH ×4 (06:51→18:00)
[2021-12-14] MEDS: PRENATAL VITAMINS W/ FOLIC ACID TABLET (FP) PO SCH (10:50)
[2021-12-14] MEDS: amLODIPine BESYLATE 10 MG TABLET (FP) PO SCH (10:52)
[2021-12-14] MEDS: NICOTINE 14 MG/24 HOURS TOPICAL PATCH TD SCH (10:55)
[2021-12-14 17:30] VITALS: BP 141/85; PULSE 106; RESP 17; TEMP 98.2
[2021-12-15] MEDS ORDERED: chlordiazePOXIDE HCL 10 MG CAPSULE PO SCH (05:00)
[2021-12-15] MEDS ORDERED: methaDONE HCL 10 MG TABLET (FOR DETOX USE ONLY) PO ONE (10:00)
[2021-12-16] MEDS ORDERED: chlordiazePOXIDE HCL 10 MG CAPSULE PO ONE (05:00)
== END 2021-12-14 21:25 | disposition left against medical advice (07) | DRG 770 ==
LOC: YASAS 13:16 → Y6N 20:55
PROVIDERS: ADMIT Allergy & Immunology; ATTEND Surgery
PROC: HZ2ZZZZ Detoxification Services for Substance Abuse Treatment (ICD-10-PCS; principal; 2021-12-11)
DX: F11.23 Opioid dependence with withdrawal (principal); F10.230 Alcohol dependence with withdrawal, uncomplicated; F14.20 Cocaine dependence, uncomplicated; F17.210 Nicotine dependence, cigarettes, uncomplicated; F20.0 Paranoid schizophrenia; F19.24 Other psychoactive substance dependence with psychoactive substance-induced mood disorder; I10 Essential (primary) hypertension; J45.909 Unspecified asthma, uncomplicated; M17.0 Bilateral primary osteoarthritis of knee; M54.50 Low back pain, unspecified; Z96.643 Presence of artificial hip joint, bilateral; Z99.89 Dependence on other enabling machines and devices; Z88.2 Allergy status to sulfonamides; Z98.84 Bariatric surgery status
CPT/HCPCS: 36415; 80053; 84132; 85027; 86593; 86780; 93005; 93010; C9803-CS; J0735; J2794; Q0162; U0003; U0005

== ENCOUNTER 2022-09-10 12:01 | Inpatient (IN) | payer OTHER ==
[2022-09-10 13:01] VITALS: BMI 23.9
[2022-09-10] MEDS ORDERED: MAGNESIUM HYDROX 2400MG/30ML ORAL SUSPENSION 30 ML CUP PO PRN (13:49)
[2022-09-10] MEDS ORDERED: NICOTINE 10 MG CARTRIDGE (INHALER) IH PRN (13:49)
[2022-09-10] MEDS ORDERED: LORazepam 1 MG TABLET PO PRN (13:49)
[2022-09-10] MEDS ORDERED: NALOXONE HCL (KLOXXADO) 8 MG SPRAY NS PRN (13:49)
[2022-09-10] MEDS ORDERED: BENZOCAINE/MENTHOL (CHLORASEPTIC ) LOZENGE MM PRN (13:49)
[2022-09-10] MEDS ORDERED: IBUPROFEN 400 MG TABLET (FP) PO PRN (13:49)
[2022-09-10] MEDS ORDERED: BENZONATATE 200 MG CAPSULE PO PRN (13:49)
[2022-09-10] MEDS ORDERED: NALOXONE HCL 0.4 MG/ML VIAL IM PRN (13:49)
[2022-09-10] MEDS ORDERED: POLYETHYLENE GLYCOL (HEALTHYLAX) 3350 17 GM PACKET PO PRN (13:49)
[2022-09-10] MEDS ORDERED: ONDANSETRON *ODT* 4 MG TABLET SL PRN (13:49)
[2022-09-10] MEDS ORDERED: MAG HYDROX/AL HYDROX/SIMETH 30 ML UNIT-DOSE CUP PO PRN (13:49)
[2022-09-10] MEDS ORDERED: LOPERAMIDE HCL 2 MG CAPSULE PO PRN (13:49)
[2022-09-10] MEDS ORDERED: ACETAMINOPHEN 325 MG TABLET (FP) PO PRN (13:49)
[2022-09-10] MEDS ORDERED: guaiFENesin 600 MG TABLET.ER (FP) PO PRN (13:49)
[2022-09-10] MEDS ORDERED: hydrOXYzine PAMOATE 25 MG CAPSULE (FP) PO PRN (13:49)
[2022-09-10] MEDS ORDERED: ALBUTEROL SO4 HFA INHALER IH PRN (13:53)
[2022-09-10] MEDS ORDERED: methaDONE HCL 10 MG TABLET (FOR DETOX USE ONLY) ONE (14:01)
[2022-09-10] MEDS ORDERED: LORazepam 1 MG TABLET ONE (14:01)
[2022-09-10] MEDS ORDERED: methaDONE HCL 10 MG TABLET (FOR DETOX USE ONLY) PO ONE (14:15)
[2022-09-10] MEDS: PRENATAL VITAMINS W/ FOLIC ACID TABLET (FP) PO SCH (14:19)
[2022-09-10] MEDS: NICOTINE 7 MG/24 HOURS TOPICAL PATCH TD SCH (14:20)
[2022-09-10 16:21] LABS: HEMOGLOBIN 12.9 GM/dL (10.7-15.3); MCH 27.5 pg (25.7-33.7); MCHC 33.2 g/dl (32.0-36.0); MEAN CELL VOLUME 82.6 fl (80-96); MEAN PLT VOLUME 8.5 fl (7.5-11.1); PLATELET COUNT 299 10^3/uL (134-434); POTASSIUM 3.4 mmol/L (3.5-5.1); RBC 4.71 M/mm3 (3.60-5.2); RDW 21.2 % (11.6-15.6); WHITE BLOOD COUNT 10.4 K/mm3 (4.0-10.0)
[2022-09-10 16:24] LABS: ALBUMIN 3.5 g/dl (3.4-5.0); BLOOD UREA NITROGEN 8.1 mg/dL (7-18); CALCIUM 9.4 mg/dL (8.5-10.1)
[2022-09-10 16:27] LABS: CREATININE 0.7 mg/dL (0.55-1.3)
[2022-09-10 16:29] LABS: BILIRUBIN,TOTAL 0.4 mg/dL (0.2-1); TOT PROT 7.5 g/dl (6.4-8.2)
[2022-09-10] MEDS: LORazepam 2 MG TABLET PO SCH ×2 (17:11→22:47)
[2022-09-10] MEDS: IBUPROFEN 600 MG TABLET (FP) PO PRN (21:52)
[2022-09-10] MEDS: METHOCARBAMOL 500 MG TABLET PO PRN (21:53)
[2022-09-10] MEDS ORDERED: MELATONIN 5 MG TABLETS PO SCH (22:00)
[2022-09-10] MEDS: THIAMINE HCL 100 MG TABLET (FP) PO SCH (22:47)
[2022-09-11] MEDS: IBUPROFEN 600 MG TABLET (FP) PO PRN (03:42)
[2022-09-11] MEDS: METHOCARBAMOL 500 MG TABLET PO PRN (03:42)
[2022-09-11] MEDS: LORazepam 2 MG TABLET PO SCH ×3 (06:00→16:56)
[2022-09-11] MEDS: DICYCLOMINE HCL 10 MG CAPSULE PO PRN ×2 (09:06→17:46)
[2022-09-11] MEDS: PRENATAL VITAMINS W/ FOLIC ACID TABLET (FP) PO SCH (09:33)
[2022-09-11] MEDS: NICOTINE 7 MG/24 HOURS TOPICAL PATCH TD SCH (09:33)
[2022-09-11] MEDS: cloNIDine HCL 0.1 MG TABLET PO PRN ×2 (12:59→16:56)
[2022-09-11] MEDS: BISMUTH SUBSALICYLATE 524 MG/30 ML PO PRN ×2 (12:59→16:57)
[2022-09-11] MEDS ORDERED: NICOTINE POLACRILEX 2 MG GUM BUC PRN (13:19)
[2022-09-11] MEDS ORDERED: TRIMETHOBENZAMIDE HCL 200MG/2ML INJ IM ONE (13:57)
[2022-09-11] MEDS: POTASSIUM CHLORIDE ORAL LIQUID 20 MEQ/15 ML PO SCH ×2 (14:27→22:40)
[2022-09-11] MEDS ORDERED: chlordiazePOXIDE HCL 25 MG CAPSULE PO PRN (18:00)
[2022-09-11] MEDS ORDERED: chlordiazePOXIDE HCL 25 MG CAPSULE PO ONE (18:00)
[2022-09-11] MEDS: THIAMINE HCL 100 MG TABLET (FP) PO SCH (22:40)
[2022-09-11] MEDS: QUEtiapine FUMARATE 50 MG TABLET PO SCH (22:40)
[2022-09-11] MEDS: chlordiazePOXIDE HCL 25 MG CAPSULE PO SCH (22:43)
[2022-09-12] MEDS ORDERED: LORazepam 1 MG TABLET PO SCH (05:00)
[2022-09-12] MEDS: chlordiazePOXIDE HCL 25 MG CAPSULE PO SCH ×4 (06:00→23:03)
[2022-09-12] MEDS: IBUPROFEN 600 MG TABLET (FP) PO PRN (06:24)
[2022-09-12] MEDS: METHOCARBAMOL 500 MG TABLET PO PRN (06:24)
[2022-09-12] MEDS ORDERED: methaDONE HCL 10 MG TABLET (FOR DETOX USE ONLY) PO ONE (10:00)
[2022-09-12] MEDS ORDERED: TRIMETHOBENZAMIDE HCL 200MG/2ML INJ IM ONE (10:19)
[2022-09-12] MEDS: PRENATAL VITAMINS W/ FOLIC ACID TABLET (FP) PO SCH (10:57)
[2022-09-12] MEDS: POTASSIUM CHLORIDE ORAL LIQUID 20 MEQ/15 ML PO SCH ×2 (10:57→23:03)
[2022-09-12] MEDS: NICOTINE 7 MG/24 HOURS TOPICAL PATCH TD SCH (10:59)
[2022-09-12] MEDS: DICYCLOMINE HCL 10 MG CAPSULE PO PRN (13:07)
[2022-09-12 15:48] VITALS: PULSE 108; RESP 16; TEMP 98.9
[2022-09-12 15:49] VITALS: BP 183/123
[2022-09-12] MEDS: cloNIDine HCL 0.1 MG TABLET PO PRN (16:17)
[2022-09-12] MEDS: QUEtiapine FUMARATE 50 MG TABLET PO SCH (23:03)
[2022-09-12] MEDS: THIAMINE HCL 100 MG TABLET (FP) PO SCH (23:04)
[2022-09-13] MEDS ORDERED: LORazepam 0.5 MG TABLET PO PRN
[2022-09-13] MEDS ORDERED: chlordiazePOXIDE HCL 25 MG CAPSULE PO SCH (05:00)
[2022-09-13] MEDS ORDERED: LORazepam 0.5 MG TABLET PO SCH (05:00)
[2022-09-14] MEDS ORDERED: LORazepam 0.5 MG TABLET PO ONE (05:00)
[2022-09-14] MEDS ORDERED: chlordiazePOXIDE HCL 10 MG CAPSULE PO SCH ×2 (05:00)
[2022-09-14] MEDS ORDERED: methaDONE HCL 10 MG TABLET (FOR DETOX USE ONLY) PO ONE (10:00)
== END 2022-09-12 23:55 | disposition short-term general hospital (02) | DRG 773 ==
LOC: YASAS 12:01 → Y3N 14:26
PROVIDERS: ADMIT Allergy & Immunology; ATTEND Surgery
PROC: HZ2ZZZZ Detoxification Services for Substance Abuse Treatment (ICD-10-PCS; principal; 2022-09-10)
DX: F11.23 Opioid dependence with withdrawal (principal); F10.230 Alcohol dependence with withdrawal, uncomplicated; F14.20 Cocaine dependence, uncomplicated; F12.20 Cannabis dependence, uncomplicated; F20.0 Paranoid schizophrenia; F19.282 Other psychoactive substance dependence with psychoactive substance-induced sleep disorder; F19.24 Other psychoactive substance dependence with psychoactive substance-induced mood disorder; I10 Essential (primary) hypertension; M06.9 Rheumatoid arthritis, unspecified; Z86.19 Personal history of other infectious and parasitic diseases; Z87.09 Personal history of other diseases of the respiratory system; Z96.643 Presence of artificial hip joint, bilateral; Z98.84 Bariatric surgery status; Z99.89 Dependence on other enabling machines and devices
CPT/HCPCS: 36415; 80053; 82140; 85027; 86593; 86780; C9803-CS; Q0162; U0003; U0005

== ENCOUNTER 2022-09-12 16:50 | Inpatient (IN) | payer OTHER ==
[2022-09-12 17:04] VITALS: BMI 22.7
[2022-09-12] MEDS ORDERED: ONDANSETRON 4 MG/2 ML VIAL IVPUSH ONE (17:26)
[2022-09-12] MEDS ORDERED: SODIUM CHLORIDE 0.9% 500 ML INFUS.BAG IV ONE (17:38)
[2022-09-12] MEDS ORDERED: FAMOTIDINE 20 MG/50 ML IVPB 20 MG/50 ML MG IVPB ONE ×2 (17:39→18:00)
[2022-09-12] MEDS ORDERED: ACETAMINOPHEN INJECTION 100 ML IVPB ONE (18:00)
[2022-09-12] MEDS ORDERED: ONDANSETRON 4 MG/2 ML VIAL ONE (18:03)
[2022-09-12 18:50] LABS: VENOUS O2 SATURATION 87.2 % (70-80); VENOUS PCO2 43.4 mmHg (38-52); VENOUS PH 7.411 (7.310-7.410)
[2022-09-12 18:53] LABS: BASO % 0.9 % (0-2.0); EOS % 0.5 % (0-4.5); HEMATOCRIT 37.3 % (32.4-45.2); HEMOGLOBIN 12.3 GM/dL (10.7-15.3); LYMPH % 8.3 % (8-40); MCH 27.3 pg (25.7-33.7); MCHC 32.9 g/dl (32.0-36.0); MEAN CELL VOLUME 82.9 fl (80-96); MEAN PLT VOLUME 8.1 fl (7.5-11.1); MONO % 3.1 % (3.8-10.2); NEUT % 87.2 % (42.8-82.8); PLATELET COUNT 251 10^3/uL (134-434); RDW 21.1 % (11.6-15.6)
[2022-09-12 19:05] LABS: INR 1.03 (0.83-1.09)
[2022-09-12 19:07] LABS: ACTIVATED PTT 32.9 SECONDS (25.2-36.5)
[2022-09-12 20:21] LABS: ANISOCYTOSIS 1+; MACROCYTOSIS 1+; OVALOCYTE 1+
[2022-09-12 20:34] LABS: POTASSIUM 3.5 mmol/L (3.5-5.1)
[2022-09-12 20:36] LABS: CALCIUM 9.1 mg/dL (8.5-10.1)
[2022-09-12 20:37] LABS: ALBUMIN 3.5 g/dl (3.4-5.0); BLOOD UREA NITROGEN 13.2 mg/dL (7-18)
[2022-09-12 20:40] LABS: CREATININE 0.5 mg/dL (0.55-1.3)
[2022-09-12 20:42] LABS: BILIRUBIN,TOTAL 0.2 mg/dL (0.2-1); TOT PROT 7.1 g/dl (6.4-8.2)
[2022-09-13] MEDS ORDERED: DOCUSATE SODIUM 100 MG CAPSULE (FP) PO PRN (01:18)
[2022-09-13] MEDS ORDERED: chlordiazePOXIDE HCL 25 MG CAPSULE PO PRN (01:37)
[2022-09-13] MEDS ORDERED: ALBUTEROL SO4 HFA INHALER IH PRN (02:26)
[2022-09-13 05:05] LABS: HIV INTERPRETATION NEGATIVE (NEGATIVE)
[2022-09-13] MEDS ORDERED: chlordiazePOXIDE HCL 25 MG CAPSULE ONE (05:23)
[2022-09-13] MEDS ORDERED: ACETAMINOPHEN 500 MG TABLET (FP) ONE (05:25)
[2022-09-13] MEDS: ACETAMINOPHEN 500 MG TABLET (FP) PO PRN ×2 (05:27→15:36)
[2022-09-13] MEDS: chlordiazePOXIDE HCL 25 MG CAPSULE PO SCH ×6 (05:27→23:00)
[2022-09-13] MEDS: FOLIC ACID 1 MG TABLET (FP) PO SCH (09:56)
[2022-09-13] MEDS: THIAMINE HCL 100 MG TABLET (FP) PO SCH (09:56)
[2022-09-13] MEDS: ENOXAPARIN NA (PORCINE) 40 MG/0.4 ML DISP.SYRIN SQ SCH ×2 (09:56→10:02)
[2022-09-13] MEDS: NICOTINE 14 MG/24 HOURS TOPICAL PATCH TD SCH ×2 (09:57→10:02)
[2022-09-13 12:49] LABS: POTASSIUM 3.7 mmol/L (3.5-5.1)
[2022-09-13 12:51] LABS: CALCIUM 9.2 mg/dL (8.5-10.1)
[2022-09-13 12:52] LABS: ALBUMIN 3.5 g/dl (3.4-5.0); BLOOD UREA NITROGEN 10.7 mg/dL (7-18)
[2022-09-13 12:55] LABS: CREATININE 0.5 mg/dL (0.55-1.3); PHOSPHOROUS 3.3 mg/dL (2.5-4.9)
[2022-09-13 12:57] LABS: BILIRUBIN,TOTAL 0.3 mg/dL (0.2-1); TOT PROT 7.4 g/dl (6.4-8.2)
[2022-09-13 18:17] LABS: BASO % 1.1 % (0-2.0); HEMATOCRIT 37.8 % (32.4-45.2); HEMOGLOBIN 12.4 GM/dL (10.7-15.3); LYMPH % 31.8 % (8-40); MCH 27.5 pg (25.7-33.7); MCHC 32.7 g/dl (32.0-36.0); MEAN CELL VOLUME 84.4 fl (80-96); MEAN PLT VOLUME 8.3 fl (7.5-11.1); MONO % 6.5 % (3.8-10.2); NEUT % 55.6 % (42.8-82.8); PLATELET COUNT 218 10^3/uL (134-434); RBC 4.49 M/mm3 (3.60-5.2); RDW 20.8 % (11.6-15.6); WHITE BLOOD COUNT 7.7 K/mm3 (4.0-10.0)
[2022-09-13] MEDS: TRIMETHOBENZAMIDE HCL 200MG/2ML INJ IM PRN (18:44)
[2022-09-13] MEDS: SENNOSIDES 8.6MG TABLET (FP) PO SCH (21:25)
[2022-09-14] MEDS ORDERED: chlordiazePOXIDE HCL 10 MG CAPSULE PO PRN
[2022-09-14] MEDS: TRIMETHOBENZAMIDE HCL 200MG/2ML INJ IM PRN ×2 (04:06→16:12)
[2022-09-14] MEDS: chlordiazePOXIDE HCL 10 MG CAPSULE PO SCH ×3 (05:22→17:30)
[2022-09-14] MEDS: ENOXAPARIN NA (PORCINE) 40 MG/0.4 ML DISP.SYRIN SQ SCH (09:17)
[2022-09-14] MEDS: FOLIC ACID 1 MG TABLET (FP) PO SCH (09:17)
[2022-09-14] MEDS: THIAMINE HCL 100 MG TABLET (FP) PO SCH (09:17)
[2022-09-14] MEDS: NICOTINE 14 MG/24 HOURS TOPICAL PATCH TD SCH (09:18)
[2022-09-14] MEDS ORDERED: methaDONE HCL 10 MG TABLET PO ONE ×3 (10:00→12:00)
[2022-09-14] MEDS ORDERED: ACETAMINOPHEN 325 MG TABLET (FP) PO PRN (11:45)
[2022-09-14] MEDS ORDERED: NALOXONE HCL 0.4 MG/ML VIAL IM PRN (11:45)
[2022-09-14] MEDS ORDERED: POLYETHYLENE GLYCOL (HEALTHYLAX) 3350 17 GM PACKET PO PRN (11:45)
[2022-09-14] MEDS ORDERED: BISMUTH SUBSALICYLATE 524 MG/30 ML PO PRN (11:45)
[2022-09-14] MEDS ORDERED: BENZONATATE 200 MG CAPSULE PO PRN (11:45)
[2022-09-14] MEDS ORDERED: IBUPROFEN 400 MG TABLET (FP) PO PRN (11:45)
[2022-09-14] MEDS ORDERED: BENZOCAINE/MENTHOL (CHLORASEPTIC ) LOZENGE MM PRN (11:45)
[2022-09-14] MEDS ORDERED: guaiFENesin 600 MG TABLET.ER (FP) PO PRN (11:45)
[2022-09-14] MEDS ORDERED: MAGNESIUM HYDROX 2400MG/30ML ORAL SUSPENSION 30 ML CUP PO PRN (11:45)
[2022-09-14] MEDS ORDERED: LOPERAMIDE HCL 2 MG CAPSULE PO PRN (11:45)
[2022-09-14] MEDS ORDERED: NALOXONE HCL (KLOXXADO) 8 MG SPRAY NS PRN (11:45)
[2022-09-14] MEDS: HYDROCHLOROTHIAZIDE 25 MG TABLET (FP) PO SCH (15:57)
[2022-09-14] MEDS: PRENATAL VITAMINS W/ FOLIC ACID TABLET (FP) PO SCH (16:25)
[2022-09-14] MEDS: SENNOSIDES 8.6MG TABLET (FP) PO SCH (21:16)
[2022-09-14] MEDS: MELATONIN 5 MG TABLETS PO SCH (21:16)
[2022-09-15] MEDS: chlordiazePOXIDE HCL 10 MG CAPSULE PO SCH ×3 (00:07→17:40)
[2022-09-15] MEDS ORDERED: chlordiazePOXIDE HCL 10 MG CAPSULE PO SCH (05:00)
[2022-09-15] MEDS: methaDONE HCL 10 MG TABLET PO SCH (06:15)
[2022-09-15 09:13] LABS: EOS % 8.1 % (0-4.5); HEMATOCRIT 33.9 % (32.4-45.2); HEMOGLOBIN 11.4 GM/dL (10.7-15.3); LYMPH % 34.5 % (8-40); MCH 28.1 pg (25.7-33.7); MCHC 33.6 g/dl (32.0-36.0); MEAN CELL VOLUME 83.7 fl (80-96); MEAN PLT VOLUME 8.7 fl (7.5-11.1); MONO % 7.4 % (3.8-10.2); PLATELET COUNT 224 10^3/uL (134-434); RBC 4.05 M/mm3 (3.60-5.2); WHITE BLOOD COUNT 5.8 K/mm3 (4.0-10.0)
[2022-09-15 09:16] LABS: INR 1.08 (0.83-1.09); PROTHROMBIN TIME (PATIENT) 12.5 SEC (9.7-13.0)
[2022-09-15 09:18] LABS: ACTIVATED PTT 31.6 SECONDS (25.2-36.5)
[2022-09-15 09:33] LABS: POTASSIUM 3.6 mmol/L (3.5-5.1)
[2022-09-15 09:36] LABS: ALBUMIN 3.2 g/dl (3.4-5.0); BLOOD UREA NITROGEN 11.6 mg/dL (7-18); MAGNESIUM 1.8 mg/dL (1.8-2.4)
[2022-09-15 09:40] LABS: CREATININE 0.6 mg/dL (0.55-1.3); PHOSPHOROUS 4.4 mg/dL (2.5-4.9)
[2022-09-15 09:41] LABS: BILIRUBIN,TOTAL 0.4 mg/dL (0.2-1); TOT PROT 6.8 g/dl (6.4-8.2)
[2022-09-15] MEDS: FOLIC ACID 1 MG TABLET (FP) PO SCH (10:02)
[2022-09-15] MEDS: HYDROCHLOROTHIAZIDE 25 MG TABLET (FP) PO SCH (10:02)
[2022-09-15] MEDS: THIAMINE HCL 100 MG TABLET (FP) PO SCH (10:02)
[2022-09-15] MEDS: PRENATAL VITAMINS W/ FOLIC ACID TABLET (FP) PO SCH (10:02)
[2022-09-15] MEDS: NICOTINE 14 MG/24 HOURS TOPICAL PATCH TD SCH (10:08)
[2022-09-15] MEDS: ENOXAPARIN NA (PORCINE) 40 MG/0.4 ML DISP.SYRIN SQ SCH (10:08)
[2022-09-15] MEDS: MAG HYDROX/AL HYDROX/SIMETH 30 ML UNIT-DOSE CUP PO PRN (14:02)
[2022-09-15] MEDS: hydrOXYzine PAMOATE 25 MG CAPSULE (FP) PO PRN (15:12)
[2022-09-15] MEDS: ACETAMINOPHEN 500 MG TABLET (FP) PO PRN (21:20)
[2022-09-15] MEDS: SENNOSIDES 8.6MG TABLET (FP) PO SCH (21:21)
[2022-09-15] MEDS: MELATONIN 5 MG TABLETS PO SCH (21:22)
[2022-09-16] MEDS ORDERED: chlordiazePOXIDE HCL 10 MG CAPSULE PO ONE (05:00)
[2022-09-16] MEDS: methaDONE HCL 10 MG TABLET PO SCH (05:24)
[2022-09-16] MEDS: NICOTINE 14 MG/24 HOURS TOPICAL PATCH TD SCH (09:45)
[2022-09-16] MEDS: FOLIC ACID 1 MG TABLET (FP) PO SCH (09:45)
[2022-09-16] MEDS: ENOXAPARIN NA (PORCINE) 40 MG/0.4 ML DISP.SYRIN SQ SCH (09:45)
[2022-09-16] MEDS: PRENATAL VITAMINS W/ FOLIC ACID TABLET (FP) PO SCH ×2 (09:46→09:56)
[2022-09-16] MEDS: THIAMINE HCL 100 MG TABLET (FP) PO SCH (09:46)
[2022-09-16] MEDS: HYDROCHLOROTHIAZIDE 25 MG TABLET (FP) PO SCH (09:46)
[2022-09-16] MEDS: SENNOSIDES/DOCUSATE COMBO (SENNA PLUS) TABLET (UD) PO SCH ×2 (12:53→21:24)
[2022-09-16] MEDS: hydrOXYzine PAMOATE 25 MG CAPSULE (FP) PO PRN (13:41)
[2022-09-16] MEDS: FAMOTIDINE 10 MG TABLET PO SCH (14:49)
[2022-09-16] MEDS: ACETAMINOPHEN 500 MG TABLET (FP) PO PRN (21:24)
[2022-09-16] MEDS: SENNOSIDES 8.6MG TABLET (FP) PO SCH (21:24)
[2022-09-16] MEDS: MELATONIN 5 MG TABLETS PO SCH (21:24)
[2022-09-16] MEDS: BACLOFEN 10 MG TABLET (FP) PO PRN (21:25)
[2022-09-17] MEDS: methaDONE HCL 10 MG TABLET PO SCH (05:29)
[2022-09-17] MEDS: THIAMINE HCL 100 MG TABLET (FP) PO SCH (09:50)
[2022-09-17] MEDS: FAMOTIDINE 10 MG TABLET PO SCH (09:50)
[2022-09-17] MEDS: PRENATAL VITAMINS W/ FOLIC ACID TABLET (FP) PO SCH (09:50)
[2022-09-17] MEDS: FOLIC ACID 1 MG TABLET (FP) PO SCH ×2 (09:51)
[2022-09-17] MEDS: NICOTINE 14 MG/24 HOURS TOPICAL PATCH TD SCH (09:52)
[2022-09-17] MEDS: hydrOXYzine PAMOATE 25 MG CAPSULE (FP) PO PRN (09:52)
[2022-09-17] MEDS: MULTIVITAMINS (DAILY MVI) TABLET (FP) PO SCH (09:52)
[2022-09-17] MEDS: MAG HYDROX/AL HYDROX/SIMETH 30 ML UNIT-DOSE CUP PO PRN (09:52)
[2022-09-17] MEDS: HYDROCHLOROTHIAZIDE 25 MG TABLET (FP) PO SCH (09:52)
[2022-09-17] MEDS: ENOXAPARIN NA (PORCINE) 40 MG/0.4 ML DISP.SYRIN SQ SCH (09:52)
[2022-09-17] MEDS: SENNOSIDES/DOCUSATE COMBO (SENNA PLUS) TABLET (UD) PO SCH ×2 (09:54→21:13)
[2022-09-17] MEDS: LIDOCAINE 5% TOPICAL PATCH TP SCH (13:13)
[2022-09-17] MEDS: LIDOCAINE PATCH REMOVAL MC SCH ×2 (13:34→21:11)
[2022-09-17] MEDS: BACLOFEN 10 MG TABLET (FP) PO PRN (18:09)
[2022-09-17] MEDS: MELATONIN 5 MG TABLETS PO SCH (21:12)
[2022-09-17] MEDS: SENNOSIDES 8.6MG TABLET (FP) PO SCH ×2 (21:12→21:18)
[2022-09-17] MEDS: ACETAMINOPHEN 500 MG TABLET (FP) PO PRN (21:12)
[2022-09-18] MEDS: DICYCLOMINE HCL 10 MG CAPSULE PO PRN ×2 (01:50→12:39)
[2022-09-18] MEDS: hydrOXYzine PAMOATE 25 MG CAPSULE (FP) PO PRN ×2 (03:05→13:50)
[2022-09-18] MEDS: MAG HYDROX/AL HYDROX/SIMETH 30 ML UNIT-DOSE CUP PO PRN ×2 (03:05→10:37)
[2022-09-18] MEDS: methaDONE HCL 10 MG TABLET PO SCH (05:09)
[2022-09-18] MEDS: ACETAMINOPHEN 500 MG TABLET (FP) PO PRN (05:20)
[2022-09-18] MEDS: FAMOTIDINE 10 MG TABLET PO SCH (09:49)
[2022-09-18] MEDS: THIAMINE HCL 100 MG TABLET (FP) PO SCH ×2 (09:49→12:26)
[2022-09-18] MEDS: MULTIVITAMINS (DAILY MVI) TABLET (FP) PO SCH ×2 (09:49→12:25)
[2022-09-18] MEDS: FOLIC ACID 1 MG TABLET (FP) PO SCH ×3 (09:49→12:25)
[2022-09-18] MEDS: HYDROCHLOROTHIAZIDE 25 MG TABLET (FP) PO SCH (09:50)
[2022-09-18] MEDS: TRIMETHOBENZAMIDE HCL 200MG/2ML INJ IM PRN (09:55)
[2022-09-18] MEDS: LIDOCAINE 5% TOPICAL PATCH TP SCH (10:02)
[2022-09-18] MEDS: ENOXAPARIN NA (PORCINE) 40 MG/0.4 ML DISP.SYRIN SQ SCH (10:03)
[2022-09-18] MEDS: NICOTINE 14 MG/24 HOURS TOPICAL PATCH TD SCH (10:04)
[2022-09-18] MEDS: SENNOSIDES/DOCUSATE COMBO (SENNA PLUS) TABLET (UD) PO SCH (10:04)
[2022-09-18] MEDS: PRENATAL VITAMINS W/ FOLIC ACID TABLET (FP) PO SCH (10:05)
[2022-09-18] MEDS ORDERED: ACETAMINOPHEN 1000 MG/100 ML BAG IVPB ONE (13:56)
[2022-09-18] MEDS ORDERED: methaDONE HCL 10 MG TABLET PO ONE (15:02)
[2022-09-18] MEDS: ACETAMINOPHEN 325 MG TABLET (FP) PO PRN ×2 (17:55→21:46)
[2022-09-18] MEDS: MELATONIN 5 MG TABLETS PO SCH (21:46)
[2022-09-18] MEDS: LIDOCAINE PATCH REMOVAL MC SCH (21:46)
[2022-09-18] MEDS: POLYETHYLENE GLYCOL (HEALTHYLAX) 3350 17 GM PACKET PO SCH (21:47)
[2022-09-18] MEDS ORDERED: PANTOPRAZOLE SODIUM 40 MG VIAL IVPUSH SCH (22:00)
[2022-09-19] MEDS ORDERED: DEXTROSE 5%-LACTATED RINGERS 1,000 ML IV SCH ×2 (03:00→08:00)
[2022-09-19] MEDS: methaDONE HCL 10 MG TABLET PO SCH (05:18)
[2022-09-19 09:19] LABS: BASO % 0.9 % (0-2.0); EOS % 8.1 % (0-4.5); HEMATOCRIT 37.3 % (32.4-45.2); HEMOGLOBIN 12.5 GM/dL (10.7-15.3); LYMPH % 33.1 % (8-40); MCH 28.1 pg (25.7-33.7); MCHC 33.5 g/dl (32.0-36.0); MEAN CELL VOLUME 83.8 fl (80-96); MEAN PLT VOLUME 8.6 fl (7.5-11.1); MONO % 7.3 % (3.8-10.2); NEUT % 50.6 % (42.8-82.8); PLATELET COUNT 247 10^3/uL (134-434); RBC 4.45 M/mm3 (3.60-5.2); WHITE BLOOD COUNT 6.7 K/mm3 (4.0-10.0)
[2022-09-19 09:43] LABS: POTASSIUM 3.7 mmol/L (3.5-5.1)
[2022-09-19 09:45] LABS: BLOOD UREA NITROGEN 11.1 mg/dL (7-18); CALCIUM 9.3 mg/dL (8.5-10.1); MAGNESIUM 1.8 mg/dL (1.8-2.4)
[2022-09-19 09:48] LABS: CREATININE 0.6 mg/dL (0.55-1.3); PHOSPHOROUS 4.1 mg/dL (2.5-4.9)
[2022-09-19 09:52] LABS: URINE APPEARANCE CLEAR; URINE BILIRUBIN NEGATIVE (NEGATIVE); URINE COLOR YELLOW; URINE GLUCOSE (UA) NEGATIVE (NEGATIVE); URINE KETONE NEGATIVE (NEGATIVE); URINE LEUK ESTERASE NEGATIVE (NEGATIVE); URINE NITRITE NEGATIVE (NEGATIVE); URINE PROTEIN NEGATIVE (NEGATIVE); URINE UROBILINOGEN 0.2 mg/dL (0.2-1.0)
[2022-09-19] MEDS ORDERED: PANTOPRAZOLE SODIUM 40 MG VIAL IVPUSH SCH (10:00)
[2022-09-19] MEDS: HYDROCHLOROTHIAZIDE 25 MG TABLET (FP) PO SCH (10:18)
[2022-09-19] MEDS: THIAMINE HCL 100 MG TABLET (FP) PO SCH (10:18)
[2022-09-19] MEDS: FOLIC ACID 1 MG TABLET (FP) PO SCH ×2 (10:18→10:19)
[2022-09-19] MEDS: POLYETHYLENE GLYCOL (HEALTHYLAX) 3350 17 GM PACKET PO SCH ×2 (10:25→23:12)
[2022-09-19] MEDS: MULTIVITAMINS (DAILY MVI) TABLET (FP) PO SCH (10:26)
[2022-09-19] MEDS: PRENATAL VITAMINS W/ FOLIC ACID TABLET (FP) PO SCH (10:26)
[2022-09-19] MEDS: NICOTINE 14 MG/24 HOURS TOPICAL PATCH TD SCH (10:26)
[2022-09-19] MEDS: LIDOCAINE 5% TOPICAL PATCH TP SCH (10:26)
[2022-09-19] MEDS: hydrOXYzine PAMOATE 25 MG CAPSULE (FP) PO PRN (13:07)
[2022-09-19] MEDS: ENOXAPARIN NA (PORCINE) 40 MG/0.4 ML DISP.SYRIN SQ SCH (16:06)
[2022-09-19] MEDS: TRIMETHOBENZAMIDE HCL 200MG/2ML INJ IM PRN (23:07)
[2022-09-19] MEDS: MELATONIN 5 MG TABLETS PO SCH (23:12)
[2022-09-19] MEDS: LIDOCAINE PATCH REMOVAL MC SCH (23:12)
[2022-09-20] MEDS: methaDONE HCL 10 MG TABLET PO SCH (05:38)
[2022-09-20] MEDS: ENOXAPARIN NA (PORCINE) 40 MG/0.4 ML DISP.SYRIN SQ SCH (10:51)
[2022-09-20] MEDS: THIAMINE HCL 100 MG TABLET (FP) PO SCH (10:52)
[2022-09-20] MEDS: HYDROCHLOROTHIAZIDE 25 MG TABLET (FP) PO SCH (10:52)
[2022-09-20] MEDS: NICOTINE 14 MG/24 HOURS TOPICAL PATCH TD SCH (10:52)
[2022-09-20] MEDS: POLYETHYLENE GLYCOL (HEALTHYLAX) 3350 17 GM PACKET PO SCH ×2 (10:52→21:21)
[2022-09-20] MEDS: PANTOPRAZOLE 40 MG TABLET PO SCH (10:52)
[2022-09-20] MEDS: LIDOCAINE 5% TOPICAL PATCH TP SCH (10:52)
[2022-09-20] MEDS: FOLIC ACID 1 MG TABLET (FP) PO SCH ×2 (10:52→10:53)
[2022-09-20] MEDS: MULTIVITAMINS (DAILY MVI) TABLET (FP) PO SCH (10:52)
[2022-09-20] MEDS: PRENATAL VITAMINS W/ FOLIC ACID TABLET (FP) PO SCH (12:52)
[2022-09-20] MEDS: hydrOXYzine PAMOATE 25 MG CAPSULE (FP) PO PRN (12:52)
[2022-09-20 15:16] VITALS: RESP 18
[2022-09-20] MEDS: MELATONIN 5 MG TABLETS PO SCH (21:21)
[2022-09-20] MEDS: LIDOCAINE PATCH REMOVAL MC SCH (21:22)
[2022-09-21] MEDS: methaDONE HCL 10 MG TABLET PO SCH (05:08)
[2022-09-21] MEDS: PANTOPRAZOLE 40 MG TABLET PO SCH (09:18)
[2022-09-21] MEDS: FOLIC ACID 1 MG TABLET (FP) PO SCH (09:18)
[2022-09-21] MEDS: HYDROCHLOROTHIAZIDE 25 MG TABLET (FP) PO SCH (09:18)
[2022-09-21] MEDS: MULTIVITAMINS (DAILY MVI) TABLET (FP) PO SCH (09:18)
[2022-09-21] MEDS: POLYETHYLENE GLYCOL (HEALTHYLAX) 3350 17 GM PACKET PO SCH (09:19)
[2022-09-21] MEDS: THIAMINE HCL 100 MG TABLET (FP) PO SCH (09:19)
[2022-09-21] MEDS: PRENATAL VITAMINS W/ FOLIC ACID TABLET (FP) PO SCH (09:19)
[2022-09-21] MEDS: ENOXAPARIN NA (PORCINE) 40 MG/0.4 ML DISP.SYRIN SQ SCH (09:19)
[2022-09-21] MEDS: NICOTINE 14 MG/24 HOURS TOPICAL PATCH TD SCH (09:19)
[2022-09-21] MEDS: LIDOCAINE 5% TOPICAL PATCH TP SCH (09:20)
[2022-09-21] MEDS: hydrOXYzine PAMOATE 25 MG CAPSULE (FP) PO PRN (09:48)
[2022-09-21 13:14] VITALS: BP 122/70; PULSE 78; TEMP 98
== END 2022-09-21 13:18 | disposition home or self-care (01) | DRG 773 ==
LOC: JER 16:50 → INTOOBSV 23:10 → UNDOADMOB 23:10 → JERBED 23:10 → J5S 09-13 05:45 → JERBED 09-13 12:19 → OBSVTOIN 09-19 10:49
PROVIDERS: ADMIT Internal Medicine; ATTEND Internal Medicine
PROC: HZ2ZZZZ Detoxification Services for Substance Abuse Treatment (ICD-10-PCS; principal; 2022-09-19)
DX: F11.23 Opioid dependence with withdrawal (principal); F39 Unspecified mood [affective] disorder; F10.230 Alcohol dependence with withdrawal, uncomplicated; F14.20 Cocaine dependence, uncomplicated; F20.0 Paranoid schizophrenia; I10 Essential (primary) hypertension; D64.9 Anemia, unspecified; J45.909 Unspecified asthma, uncomplicated; M54.50 Low back pain, unspecified; M06.9 Rheumatoid arthritis, unspecified; F41.9 Anxiety disorder, unspecified; F32.A Depression, unspecified; F17.210 Nicotine dependence, cigarettes, uncomplicated; R11.2 Nausea with vomiting, unspecified; M89.9 Disorder of bone, unspecified; F40.240 Claustrophobia; M17.32 Unilateral post-traumatic osteoarthritis, left knee
CPT/HCPCS: 0241U-QW; 36415; 71045-TC-FY; 73521-TC-FY; 73560-TC-LT-FY; 73562-TC-LT-FY; 74018-TC-FY; 74177-TC; 80048; 80053; 81003; 82803; 82962; 83036; 83605; 83690; 83735; 84100; 84439; 84443; 84484; 85025; 85610; 85730; 86850; 86900; 86901; 87389; 93005; 93010; 97116-GP; 97162-GP; 99285-25; G0378; J0475; Q9967

== ENCOUNTER 2022-11-17 09:13 | Inpatient (IN) | payer OTHER ==
[2022-11-17 09:52] VITALS: BMI 23.9
[2022-11-17] MEDS ORDERED: BENZOCAINE/MENTHOL (CHLORASEPTIC ) LOZENGE MM PRN (10:42)
[2022-11-17] MEDS ORDERED: ACETAMINOPHEN 325 MG TABLET (FP) PO PRN (10:42)
[2022-11-17] MEDS ORDERED: DICYCLOMINE HCL 10 MG CAPSULE PO PRN (10:42)
[2022-11-17] MEDS ORDERED: guaiFENesin 600 MG TABLET.ER (FP) PO PRN (10:42)
[2022-11-17] MEDS ORDERED: POLYETHYLENE GLYCOL (HEALTHYLAX) 3350 17 GM PACKET PO PRN (10:42)
[2022-11-17] MEDS ORDERED: BENZONATATE 200 MG CAPSULE PO PRN (10:42)
[2022-11-17] MEDS ORDERED: NALOXONE HCL (KLOXXADO) 8 MG SPRAY NS PRN (10:42)
[2022-11-17] MEDS ORDERED: MAG HYDROX/AL HYDROX/SIMETH 30 ML UNIT-DOSE CUP PO PRN (10:42)
[2022-11-17] MEDS ORDERED: BISMUTH SUBSALICYLATE 524 MG/30 ML PO PRN (10:42)
[2022-11-17] MEDS ORDERED: MAGNESIUM HYDROX 2400MG/30ML ORAL SUSPENSION 30 ML CUP PO PRN (10:42)
[2022-11-17] MEDS ORDERED: methaDONE HCL 10 MG TABLET (FOR DETOX USE ONLY) PO ONE (10:42)
[2022-11-17] MEDS ORDERED: LOPERAMIDE HCL 2 MG CAPSULE PO PRN (10:42)
[2022-11-17] MEDS ORDERED: ONDANSETRON *ODT* 4 MG TABLET SL PRN (10:42)
[2022-11-17] MEDS ORDERED: NALOXONE HCL 0.4 MG/ML VIAL IM PRN (10:42)
[2022-11-17] MEDS ORDERED: IBUPROFEN 400 MG TABLET (FP) PO PRN (10:42)
[2022-11-17] MEDS ORDERED: methaDONE HCL 10 MG TABLET (FOR DETOX USE ONLY) ONE (11:33)
[2022-11-17] MEDS ORDERED: ALBUTEROL SO4 HFA INHALER IH PRN (11:57)
[2022-11-17] MEDS: METHOCARBAMOL 500 MG TABLET PO PRN ×2 (12:00→22:02)
[2022-11-17] MEDS: cloNIDine HCL 0.1 MG TABLET PO PRN (20:10)
[2022-11-17] MEDS: hydrOXYzine PAMOATE 25 MG CAPSULE (FP) PO PRN (20:10)
[2022-11-17] MEDS: IBUPROFEN 600 MG TABLET (FP) PO PRN (20:16)
[2022-11-17] MEDS ORDERED: MELATONIN 5 MG TABLETS PO SCH (22:00)
[2022-11-17] MEDS: THIAMINE HCL 100 MG TABLET (FP) PO SCH (22:02)
[2022-11-17] MEDS: LIDOCAINE PATCH REMOVAL MC SCH (22:05)
[2022-11-18] MEDS: METHOCARBAMOL 500 MG TABLET PO PRN (05:52)
[2022-11-18] MEDS: cloNIDine HCL 0.1 MG TABLET PO PRN (05:52)
[2022-11-18] MEDS: hydrOXYzine PAMOATE 25 MG CAPSULE (FP) PO PRN (05:52)
[2022-11-18] MEDS: PRENATAL VITAMINS W/ FOLIC ACID TABLET (FP) PO SCH (09:53)
[2022-11-18] MEDS: LIDOCAINE 5% TOPICAL PATCH TP SCH (09:53)
[2022-11-18] MEDS ORDERED: LORazepam 1 MG TABLET PO PRN (11:40)
[2022-11-18] MEDS ORDERED: LORazepam 2 MG TABLET PO ONE (11:40)
[2022-11-18] MEDS: LORazepam 2 MG TABLET PO SCH ×2 (17:33→22:12)
[2022-11-18] MEDS: QUEtiapine FUMARATE 100 MG TABLET (FP) PO SCH (22:12)
[2022-11-18] MEDS: LIDOCAINE PATCH REMOVAL MC SCH (22:12)
[2022-11-18] MEDS: THIAMINE HCL 100 MG TABLET (FP) PO SCH (22:12)
[2022-11-19] MEDS: LORazepam 2 MG TABLET PO SCH ×4 (05:57→22:27)
[2022-11-19] MEDS ORDERED: methaDONE HCL 10 MG TABLET (FOR DETOX USE ONLY) PO ONE (10:00)
[2022-11-19] MEDS: LIDOCAINE 5% TOPICAL PATCH TP SCH (10:12)
[2022-11-19] MEDS: PRENATAL VITAMINS W/ FOLIC ACID TABLET (FP) PO SCH (10:12)
[2022-11-19 11:18] LABS: HEMATOCRIT 36.2 % (32.4-45.2); HEMOGLOBIN 11.7 GM/dL (10.7-15.3); MCH 28.8 pg (25.7-33.7); MCHC 32.4 g/dl (32.0-36.0); MEAN CELL VOLUME 88.9 fl (80-96); MEAN PLT VOLUME 8.9 fl (7.5-11.1); PLATELET COUNT 242 10^3/uL (134-434); RBC 4.07 M/mm3 (3.60-5.2); RDW 14.5 % (11.6-15.6); WHITE BLOOD COUNT 6.1 K/mm3 (4.0-10.0)
[2022-11-19 11:26] LABS: CHLORIDE 108 mmol/L (98-107); POTASSIUM 3.5 mmol/L (3.5-5.1); SODIUM 144 mmol/L (136-145)
[2022-11-19 11:29] LABS: ALBUMIN 2.8 g/dl (3.4-5.0); ANION GAP 6 MMOL/L (8-16); CALCIUM 8.5 mg/dL (8.5-10.1); CO2 30 mmol/L (21-32); GLUCOSE,RANDOM 106 mg/dL (74-106)
[2022-11-19 11:30] LABS: BLOOD UREA NITROGEN 10.8 mg/dL (7-18)
[2022-11-19 11:32] LABS: CREATININE 0.5 mg/dL (0.55-1.3); SGOT/AST 15 U/L (15-37); SGPT/ALT 17 U/L (13-61)
[2022-11-19 11:34] LABS: BILIRUBIN,TOTAL 0.3 mg/dL (0.2-1)
[2022-11-19 11:35] LABS: ALK PHOS 93 U/L (45-117)
[2022-11-19] MEDS: predniSONE 20 MG TABLET (UD) PO SCH (12:54)
[2022-11-19] MEDS: cloNIDine HCL 0.1 MG TABLET PO PRN ×2 (14:48→22:28)
[2022-11-19] MEDS: hydrOXYzine PAMOATE 25 MG CAPSULE (FP) PO PRN (17:17)
[2022-11-19] MEDS: LIDOCAINE PATCH REMOVAL MC SCH (22:27)
[2022-11-19] MEDS: METHOCARBAMOL 500 MG TABLET PO PRN (22:27)
[2022-11-19] MEDS: THIAMINE HCL 100 MG TABLET (FP) PO SCH (22:27)
[2022-11-19] MEDS: QUEtiapine FUMARATE 100 MG TABLET (FP) PO SCH (22:27)
[2022-11-20] MEDS: LORazepam 1 MG TABLET PO SCH ×4 (05:46→22:18)
[2022-11-20] MEDS: LIDOCAINE 5% TOPICAL PATCH TP SCH (10:06)
[2022-11-20] MEDS: predniSONE 20 MG TABLET (UD) PO SCH (10:06)
[2022-11-20] MEDS: PRENATAL VITAMINS W/ FOLIC ACID TABLET (FP) PO SCH (10:07)
[2022-11-20] MEDS: hydrOXYzine PAMOATE 25 MG CAPSULE (FP) PO PRN (17:21)
[2022-11-20] MEDS: IBUPROFEN 600 MG TABLET (FP) PO PRN (21:08)
[2022-11-20] MEDS: METHOCARBAMOL 500 MG TABLET PO PRN (21:08)
[2022-11-20] MEDS: THIAMINE HCL 100 MG TABLET (FP) PO SCH (22:17)
[2022-11-20] MEDS: QUEtiapine FUMARATE 100 MG TABLET (FP) PO SCH (22:17)
[2022-11-20] MEDS: LIDOCAINE PATCH REMOVAL MC SCH (22:18)
[2022-11-21] MEDS ORDERED: LORazepam 0.5 MG TABLET PO PRN
[2022-11-21] MEDS: hydrOXYzine PAMOATE 25 MG CAPSULE (FP) PO PRN ×2 (02:31→15:06)
[2022-11-21] MEDS: LORazepam 0.5 MG TABLET PO SCH ×2 (05:39→10:55)
[2022-11-21 09:07] VITALS: RESP 18
[2022-11-21] MEDS ORDERED: methaDONE HCL 10 MG TABLET (FOR DETOX USE ONLY) PO ONE (10:00)
[2022-11-21] MEDS: PRENATAL VITAMINS W/ FOLIC ACID TABLET (FP) PO SCH (10:53)
[2022-11-21] MEDS: LIDOCAINE 5% TOPICAL PATCH TP SCH (10:54)
[2022-11-21] MEDS: predniSONE 20 MG TABLET (UD) PO SCH (10:55)
[2022-11-21 13:11] VITALS: BP 133/69; PULSE 84; TEMP 97.4
[2022-11-22] MEDS ORDERED: LORazepam 0.5 MG TABLET PO ONE (05:00)
== END 2022-11-21 16:20 | disposition other institution (70) | DRG 773 ==
LOC: YASAS 09:13 → Y3N 11:19
PROVIDERS: ADMIT Allergy & Immunology; ATTEND Surgery
PROC: HZ2ZZZZ Detoxification Services for Substance Abuse Treatment (ICD-10-PCS; principal; 2022-11-17)
DX: F11.23 Opioid dependence with withdrawal (principal); F10.230 Alcohol dependence with withdrawal, uncomplicated; F14.20 Cocaine dependence, uncomplicated; F13.20 Sedative, hypnotic or anxiolytic dependence, uncomplicated; F12.20 Cannabis dependence, uncomplicated; F17.210 Nicotine dependence, cigarettes, uncomplicated; I10 Essential (primary) hypertension; J45.909 Unspecified asthma, uncomplicated; K21.9 Gastro-esophageal reflux disease without esophagitis; M54.50 Low back pain, unspecified; G89.29 Other chronic pain; M06.89 Other specified rheumatoid arthritis, multiple sites; R26.89 Other abnormalities of gait and mobility; Z99.89 Dependence on other enabling machines and devices
CPT/HCPCS: 36415; 80053; 80307; 85027; 86593; 86780; 87635; 87811; Q0162

== ENCOUNTER 2022-11-21 16:31 | Inpatient (IN) | payer OTHER ==
[2022-11-21] MEDS ORDERED: MAG HYDROX/AL HYDROX/SIMETH 30 ML UNIT-DOSE CUP PO PRN (17:58)
[2022-11-21] MEDS ORDERED: BENZONATATE 200 MG CAPSULE PO PRN (17:58)
[2022-11-21] MEDS ORDERED: POLYETHYLENE GLYCOL (HEALTHYLAX) 3350 17 GM PACKET PO PRN (17:58)
[2022-11-21] MEDS ORDERED: LOPERAMIDE HCL 2 MG CAPSULE PO PRN (17:58)
[2022-11-21] MEDS ORDERED: ACETAMINOPHEN 325 MG TABLET (FP) PO PRN (17:58)
[2022-11-21] MEDS ORDERED: COLLOIDAL OATMEAL 1 BAR EACH TP PRN (17:58)
[2022-11-21] MEDS ORDERED: guaiFENesin 600 MG TABLET.ER (FP) PO PRN (17:58)
[2022-11-21] MEDS ORDERED: MAGNESIUM HYDROX 2400MG/30ML ORAL SUSPENSION 30 ML CUP PO PRN (17:58)
[2022-11-21] MEDS ORDERED: BENZOCAINE/MENTHOL (CHLORASEPTIC ) LOZENGE MM PRN (17:58)
[2022-11-21] MEDS ORDERED: AMMONIUM LACTATE 12% LOTION 225 GM BOTTLE TP PRN (17:58)
[2022-11-21] MEDS ORDERED: IBUPROFEN 400 MG TABLET (FP) PO PRN (17:58)
[2022-11-21] MEDS ORDERED: P-EPHED 60MG/TRIPROLIDI 2.5MG TABLET PO PRN (17:58)
[2022-11-21] MEDS ORDERED: NALOXONE HCL 0.4 MG/ML VIAL IVPUSH PRN (17:58)
[2022-11-21] MEDS ORDERED: NALOXONE HCL (KLOXXADO) 8 MG SPRAY NS PRN (17:58)
[2022-11-21] MEDS ORDERED: ALBUTEROL SO4 HFA INHALER IH PRN (17:59)
[2022-11-21] MEDS: IBUPROFEN 600 MG TABLET (FP) PO PRN (18:09)
[2022-11-21] MEDS: LIDOCAINE PATCH REMOVAL MC SCH (21:35)
[2022-11-21] MEDS: THIAMINE HCL 100 MG TABLET (FP) PO SCH (21:35)
[2022-11-21] MEDS: MELATONIN 5 MG TABLETS PO SCH (21:35)
[2022-11-21] MEDS: QUEtiapine FUMARATE 100 MG TABLET (FP) PO SCH (21:35)
[2022-11-22] MEDS: METHOCARBAMOL 500 MG TABLET PO PRN ×3 (06:10→19:24)
[2022-11-22] MEDS: PRENATAL VITAMINS W/ FOLIC ACID TABLET (FP) PO SCH (10:02)
[2022-11-22] MEDS: PANTOPRAZOLE 40 MG TABLET PO SCH (10:02)
[2022-11-22] MEDS: LIDOCAINE 5% TOPICAL PATCH TP SCH (10:02)
[2022-11-22] MEDS: hydrOXYzine PAMOATE 25 MG CAPSULE (FP) PO PRN ×2 (14:18→19:24)
[2022-11-22] MEDS: MELATONIN 5 MG TABLETS PO SCH (21:05)
[2022-11-22] MEDS: THIAMINE HCL 100 MG TABLET (FP) PO SCH (21:06)
[2022-11-22] MEDS: QUEtiapine FUMARATE 100 MG TABLET (FP) PO SCH (21:06)
[2022-11-22] MEDS: LIDOCAINE PATCH REMOVAL MC SCH (21:07)
[2022-11-23] MEDS: hydrOXYzine PAMOATE 25 MG CAPSULE (FP) PO PRN (06:17)
[2022-11-23] MEDS: IBUPROFEN 600 MG TABLET (FP) PO PRN (06:17)
[2022-11-23] MEDS: METHOCARBAMOL 500 MG TABLET PO PRN (06:18)
[2022-11-23 07:41] VITALS: RESP 17; TEMP 96.4
[2022-11-23 09:08] VITALS: BP 146/73; PULSE 78
[2022-11-23] MEDS: PRENATAL VITAMINS W/ FOLIC ACID TABLET (FP) PO SCH (09:26)
[2022-11-23] MEDS: LIDOCAINE 5% TOPICAL PATCH TP SCH (09:26)
[2022-11-23] MEDS: PANTOPRAZOLE 40 MG TABLET PO SCH (09:27)
== END 2022-11-23 01:41 | disposition left against medical advice (07) | DRG 770 ==
LOC: YASAS 16:31 → Y5N 16:32
PROVIDERS: ADMIT Allergy & Immunology; ATTEND Psychiatry & Neurology Pain Medicine
PROC: HZ42ZZZ Group Counseling for Substance Abuse Treatment, Cognitive-Behavioral (ICD-10-PCS; principal; 2022-11-21)
DX: F11.20 Opioid dependence, uncomplicated (principal); F14.20 Cocaine dependence, uncomplicated; F12.20 Cannabis dependence, uncomplicated; F17.210 Nicotine dependence, cigarettes, uncomplicated; F32.A Depression, unspecified; F41.9 Anxiety disorder, unspecified; I10 Essential (primary) hypertension; J45.909 Unspecified asthma, uncomplicated; K21.9 Gastro-esophageal reflux disease without esophagitis; Z86.59 Personal history of other mental and behavioral disorders; Z96.643 Presence of artificial hip joint, bilateral; Z98.84 Bariatric surgery status; Z88.2 Allergy status to sulfonamides

== ENCOUNTER 2023-07-03 15:27 | Inpatient (IN) | payer OTHER ==
[2023-07-03 17:31] VITALS: BMI 17.2
[2023-07-03] MEDS ORDERED: ALBUTEROL SO4 HFA INHALER IH PRN (18:28)
[2023-07-03] MEDS ORDERED: methaDONE HCL 10 MG TABLET (FOR DETOX USE ONLY) PO ONE (18:33)
[2023-07-03] MEDS ORDERED: POLYETHYLENE GLYCOL (HEALTHYLAX) 3350 17 GM PACKET PO PRN (18:45)
[2023-07-03] MEDS ORDERED: IBUPROFEN 400 MG TABLET (FP) PO PRN (18:45)
[2023-07-03] MEDS ORDERED: ACETAMINOPHEN 325 MG TABLET (FP) PO PRN (18:45)
[2023-07-03] MEDS ORDERED: NICOTINE POLACRILEX 2 MG GUM BUC PRN (18:45)
[2023-07-03] MEDS ORDERED: DICYCLOMINE HCL 10 MG CAPSULE PO PRN (18:45)
[2023-07-03] MEDS ORDERED: guaiFENesin 600 MG TABLET.ER (FP) PO PRN (18:45)
[2023-07-03] MEDS ORDERED: BISMUTH SUBSALICYLATE 524 MG/30 ML PO PRN (18:45)
[2023-07-03] MEDS ORDERED: BENZONATATE 200 MG CAPSULE PO PRN (18:45)
[2023-07-03] MEDS ORDERED: P-EPHED 60MG/TRIPROLIDI 2.5MG TABLET PO PRN (18:45)
[2023-07-03] MEDS ORDERED: NALOXONE HCL (KLOXXADO) 8 MG SPRAY NS PRN (18:45)
[2023-07-03] MEDS ORDERED: BENZOCAINE/MENTHOL (CHLORASEPTIC ) LOZENGE MM PRN (18:45)
[2023-07-03] MEDS ORDERED: MAGNESIUM HYDROX 2400MG/30ML ORAL SUSPENSION 30 ML CUP PO PRN (18:45)
[2023-07-03] MEDS ORDERED: NALOXONE HCL 0.4 MG/ML VIAL IM PRN (18:45)
[2023-07-03] MEDS ORDERED: LOPERAMIDE HCL 2 MG CAPSULE PO PRN (18:45)
[2023-07-03] MEDS ORDERED: methaDONE HCL 10 MG TABLET (FOR DETOX USE ONLY) ONE (21:19)
[2023-07-03] MEDS: methaDONE HCL 10 MG TABLET (FOR DETOX USE ONLY) PO ONE (21:25)
[2023-07-03] MEDS: cloNIDine HCL 0.1 MG TABLET PO PRN (21:57)
[2023-07-03] MEDS: MELATONIN 5 MG TABLETS PO SCH (21:57)
[2023-07-03] MEDS: THIAMINE HCL 100 MG TABLET (FP) PO SCH (21:58)
[2023-07-03] MEDS: GABAPENTIN 100 MG CAPSULE PO SCH (21:58)
[2023-07-03] MEDS: diazePAM 5 MG TABLET PO SCH (22:03)
[2023-07-04] MEDS ORDERED: methaDONE HCL 10 MG TABLET (FOR DETOX USE ONLY) PO ONE (10:00)
[2023-07-04] MEDS: PRENATAL VITAMINS W/ FOLIC ACID TABLET (FP) PO SCH (10:09)
[2023-07-04] MEDS: LIDOCAINE 4% PATCH TP SCH (10:09)
[2023-07-04 12:52] LABS: HEMATOCRIT 32.7 % (32.4-45.2); HEMOGLOBIN 11.2 GM/dL (10.7-15.3); MCH 30.3 pg (25.7-33.7); MCHC 34.3 g/dl (32.0-36.0); MEAN CELL VOLUME 88.5 fl (80-96); MEAN PLT VOLUME 8.4 fl (7.5-11.1); PLATELET COUNT 211 10^3/uL (134-434); RBC 3.69 M/mm3 (3.60-5.2); RDW 14.8 % (11.6-15.6); WHITE BLOOD COUNT 5.3 K/mm3 (4.0-10.0)
[2023-07-04 13:23] LABS: CHLORIDE 105 mmol/L (98-107); POTASSIUM 3.3 mmol/L (3.5-5.1); SODIUM 141 mmol/L (136-145)
[2023-07-04 13:30] LABS: BLOOD UREA NITROGEN 9.1 mg/dL (7-18); CALCIUM 8.3 mg/dL (8.5-10.1)
[2023-07-04 13:31] LABS: ALBUMIN 2.8 g/dl (3.4-5.0); ANION GAP 6 mmol/L (4-13); CO2 30 mmol/L (21-32); GLUCOSE,RANDOM 113 mg/dL (74-106)
[2023-07-04 13:34] LABS: SGOT/AST 12 U/L (15-37); SGPT/ALT 13 U/L (13-61)
[2023-07-04 13:36] LABS: BILIRUBIN,TOTAL 0.4 mg/dL (0.2-1); CREATININE 0.4 mg/dL (0.55-1.3); TOT PROT 5.7 g/dl (6.4-8.2)
[2023-07-04 13:37] LABS: ALK PHOS 95 U/L (45-117)
[2023-07-04] MEDS: IBUPROFEN 600 MG TABLET (FP) PO PRN (16:57)
[2023-07-04] MEDS: LIDOCAINE PATCH REMOVAL MC SCH (22:05)
[2023-07-05] MEDS: diazePAM 5 MG TABLET PO SCH (05:10)
[2023-07-05] MEDS: methaDONE HCL 10 MG TABLET (FOR DETOX USE ONLY) PO ONE (09:42)
[2023-07-05] MEDS: METHOCARBAMOL 500 MG TABLET PO PRN (09:42)
[2023-07-05] MEDS: MAG HYDROX/AL HYDROX/SIMETH 30 ML UNIT-DOSE CUP PO PRN (15:06)
[2023-07-05] MEDS: diazePAM 5 MG TABLET PO PRN (17:22)
[2023-07-06] MEDS: diazePAM 5 MG TABLET PO SCH (05:53)
[2023-07-06] MEDS ORDERED: methaDONE HCL 10 MG TABLET (FOR DETOX USE ONLY) PO ONE (06:00)
[2023-07-06 13:12] VITALS: BP 139/83; PULSE 74; RESP 16; TEMP 97.3
[2023-07-07] MEDS ORDERED: diazePAM 5 MG TABLET PO ONE (06:00)
== END 2023-07-06 03:55 | disposition left against medical advice (07) | DRG 770 ==
LOC: YASAS 15:27 → Y3N 21:30
PROVIDERS: ADMIT Allergy & Immunology; ATTEND Family Medicine Addiction Medicine
PROC: HZ2ZZZZ Detoxification Services for Substance Abuse Treatment (ICD-10-PCS; principal; 2023-07-03)
DX: F11.23 Opioid dependence with withdrawal (principal); F10.230 Alcohol dependence with withdrawal, uncomplicated; F14.20 Cocaine dependence, uncomplicated; F17.210 Nicotine dependence, cigarettes, uncomplicated; F25.9 Schizoaffective disorder, unspecified; I10 Essential (primary) hypertension; J45.20 Mild intermittent asthma, uncomplicated; K21.9 Gastro-esophageal reflux disease without esophagitis; M16.0 Bilateral primary osteoarthritis of hip; M54.50 Low back pain, unspecified; G89.29 Other chronic pain; R76.8 Other specified abnormal immunological findings in serum; Z99.89 Dependence on other enabling machines and devices; Z86.59 Personal history of other mental and behavioral disorders; Z88.2 Allergy status to sulfonamides
CPT/HCPCS: 36415; 80053; 80305; 80307; 85027; 86593; 86780; 87635; 93005; 93010

== ENCOUNTER 2023-08-05 11:23 | Inpatient (IN) | payer OTHER ==
[2023-08-05 12:35] VITALS: BMI 22.3
[2023-08-05] MEDS ORDERED: guaiFENesin 600 MG TABLET.ER (FP) PO PRN (13:25)
[2023-08-05] MEDS ORDERED: LOPERAMIDE HCL 2 MG CAPSULE PO PRN (13:25)
[2023-08-05] MEDS ORDERED: MAG HYDROX/AL HYDROX/SIMETH 30 ML UNIT-DOSE CUP PO PRN (13:25)
[2023-08-05] MEDS ORDERED: NALOXONE HCL (KLOXXADO) 8 MG SPRAY NS PRN (13:25)
[2023-08-05] MEDS ORDERED: BISMUTH SUBSALICYLATE 524 MG/30 ML PO PRN (13:25)
[2023-08-05] MEDS ORDERED: MAGNESIUM HYDROX 2400MG/30ML ORAL SUSPENSION 30 ML CUP PO PRN (13:25)
[2023-08-05] MEDS ORDERED: BENZOCAINE/MENTHOL (CHLORASEPTIC ) LOZENGE MM PRN (13:25)
[2023-08-05] MEDS ORDERED: POLYETHYLENE GLYCOL (HEALTHYLAX) 3350 17 GM PACKET PO PRN (13:25)
[2023-08-05] MEDS ORDERED: NALOXONE HCL 0.4 MG/ML VIAL IM PRN (13:25)
[2023-08-05] MEDS ORDERED: BENZONATATE 200 MG CAPSULE PO PRN (13:25)
[2023-08-05] MEDS ORDERED: IBUPROFEN 400 MG TABLET (FP) PO PRN (13:25)
[2023-08-05] MEDS ORDERED: ALBUTEROL SO4 HFA INHALER IH PRN (13:28)
[2023-08-05] MEDS ORDERED: cloNIDine HCL 0.1 MG TABLET ONE (14:27)
[2023-08-05] MEDS ORDERED: methaDONE HCL 10 MG TABLET (FOR DETOX USE ONLY) ONE (14:27)
[2023-08-05] MEDS ORDERED: NICOTINE 7 MG/24 HOURS TOPICAL PATCH TD ONE (14:27)
[2023-08-05] MEDS ORDERED: BUPRENORPHINE/NALOXONE 0.5 MG/0.125 MG FILM ONE (14:28)
[2023-08-05] MEDS ORDERED: GABAPENTIN 100 MG CAPSULE ONE (14:28)
[2023-08-05] MEDS: methaDONE HCL 10 MG TABLET (FOR DETOX USE ONLY) PO ONE (14:32)
[2023-08-05] MEDS: cloNIDine HCL 0.1 MG TABLET PO SCH (14:32)
[2023-08-05] MEDS: BUPRENORPHINE/NALOXONE 0.5 MG/0.125 MG FILM SL ONE ×2 (14:32→22:12)
[2023-08-05] MEDS: GABAPENTIN 100 MG CAPSULE PO SCH (14:32)
[2023-08-05] MEDS: NICOTINE 7 MG/24 HOURS TOPICAL PATCH TD SCH (14:34)
[2023-08-05] MEDS: PRENATAL VITAMINS W/ FOLIC ACID TABLET (FP) PO SCH (14:47)
[2023-08-05] MEDS: ONDANSETRON *ODT* 4 MG TABLET SL PRN (16:30)
[2023-08-05] MEDS: THIAMINE HCL 100 MG TABLET (FP) PO SCH (22:10)
[2023-08-05] MEDS: MELATONIN 5 MG TABLETS PO SCH (22:10)
[2023-08-06] MEDS: METHOCARBAMOL 500 MG TABLET PO PRN (01:53)
[2023-08-06] MEDS: IBUPROFEN 600 MG TABLET (FP) PO PRN (01:53)
[2023-08-06] MEDS: hydrOXYzine PAMOATE 25 MG CAPSULE (FP) PO PRN (05:46)
[2023-08-06] MEDS: LIDOCAINE 5% TOPICAL PATCH TP SCH (09:30)
[2023-08-06] MEDS: PANTOPRAZOLE 40 MG TABLET PO SCH (09:30)
[2023-08-06] MEDS: BUPRENORPHINE/NALOXONE 0.5 MG/0.125 MG FILM SL SCH (09:31)
[2023-08-06 11:55] LABS: HEMATOCRIT 33.3 % (32.4-45.2); HEMOGLOBIN 10.7 GM/dL (10.7-15.3); MCH 29.2 pg (25.7-33.7); MCHC 32.2 g/dl (32.0-36.0); MEAN CELL VOLUME 90.8 fl (80-96); MEAN PLT VOLUME 8.4 fl (7.5-11.1); PLATELET COUNT 259 10^3/uL (134-434); RBC 3.67 M/mm3 (3.60-5.2); RDW 14.5 % (11.6-15.6); WHITE BLOOD COUNT 5.7 K/mm3 (4.0-10.0)
[2023-08-06] MEDS: DICYCLOMINE HCL 10 MG CAPSULE PO PRN (12:04)
[2023-08-06 12:23] LABS: BLOOD UREA NITROGEN 9.8 mg/dL (7-18)
[2023-08-06 12:24] LABS: ALBUMIN 2.8 g/dl (3.4-5.0)
[2023-08-06 12:25] LABS: CALCIUM 8.8 mg/dL (8.5-10.1)
[2023-08-06 12:26] LABS: CREATININE 0.5 mg/dL (0.55-1.3)
[2023-08-06 12:27] LABS: BILIRUBIN,TOTAL 0.4 mg/dL (0.2-1); TOT PROT 5.9 g/dl (6.4-8.2)
[2023-08-06] MEDS: diazePAM 5 MG TABLET PO PRN (13:44)
[2023-08-06] MEDS: LIDOCAINE PATCH REMOVAL MC SCH (22:41)
[2023-08-07] MEDS: ACETAMINOPHEN 325 MG TABLET (FP) PO PRN (01:10)
[2023-08-07] MEDS: methaDONE HCL 10 MG TABLET (FOR DETOX USE ONLY) PO ONE (09:27)
[2023-08-07] MEDS: BUPRENORPHINE/NALOXONE 2 MG/0.5 MG FILM PACKET SL SCH (09:29)
[2023-08-08] MEDS: BUPRENORPHINE/NALOXONE 4 MG/1 MG FILM PACKET SL SCH (09:48)
[2023-08-09] MEDS: methaDONE HCL 10 MG TABLET (FOR DETOX USE ONLY) PO ONE (09:56)
[2023-08-09] MEDS: BUPRENORPHINE/NALOXONE 8 MG/2 MG FILM PACKET SL SCH (09:57)
[2023-08-09] MEDS ORDERED: QUEtiapine FUMARATE 25 MG TABLET PO SCH (22:00)
[2023-08-09] MEDS: QUEtiapine FUMARATE 25 MG TABLET PO SCH (22:12)
[2023-08-10] MEDS: SERTRALINE HCL 50 MG TABLET (FP) PO SCH (09:38)
[2023-08-10] MEDS: BUPRENORPHINE/NALOXONE 8 MG/2 MG FILM PACKET SL SCH (09:38)
[2023-08-11 06:16] VITALS: PULSE 66
[2023-08-11 09:54] VITALS: BP 114/60; RESP 20; TEMP 97.1
== END 2023-08-11 09:38 | disposition home or self-care (01) | DRG 773 ==
LOC: YASAS 11:23 → Y3N 14:11
PROVIDERS: ADMIT Allergy & Immunology; ATTEND Surgery
PROC: HZ2ZZZZ Detoxification Services for Substance Abuse Treatment (ICD-10-PCS; principal; 2023-08-05)
DX: F11.23 Opioid dependence with withdrawal (principal); F10.230 Alcohol dependence with withdrawal, uncomplicated; F17.210 Nicotine dependence, cigarettes, uncomplicated; F20.0 Paranoid schizophrenia; I10 Essential (primary) hypertension; K21.9 Gastro-esophageal reflux disease without esophagitis; M25.562 Pain in left knee; M54.50 Low back pain, unspecified; G89.29 Other chronic pain; M16.0 Bilateral primary osteoarthritis of hip; R76.8 Other specified abnormal immunological findings in serum; Z99.89 Dependence on other enabling machines and devices; Z88.2 Allergy status to sulfonamides; S89.92XA Unspecified injury of left lower leg, initial encounter; W22.01XA Walked into wall, initial encounter; Y92.230 Patient room in hospital as the place of occurrence of the external cause
CPT/HCPCS: 36415; 80053; 85027; 86593; 86780; 93005; 93010; Q0162

== ENCOUNTER 2023-08-08 08:02 | Emergency (ER) | payer OTHER ==
[2023-08-08 08:18] VITALS: BMI 22.7
[2023-08-08] MEDS ORDERED: KETOROLAC TROMETHAMINE 30 MG/1 ML VIAL ONE (09:11)
[2023-08-08] MEDS: KETOROLAC TROMETHAMINE 30 MG/1 ML VIAL IM ONE (09:13)
[2023-08-08] MEDS ORDERED: ONDANSETRON *ODT* 4 MG TABLET ONE (09:27)
[2023-08-08] MEDS: ONDANSETRON *ODT* 4 MG TABLET SL ONE (09:28)
[2023-08-08] MEDS: methaDONE HCL 40 MG DISPERSABLE TABLET PO ONE (12:05)
[2023-08-08] MEDS ORDERED: methaDONE HCL 10 MG TABLET ONE (12:07)
[2023-08-08 12:58] VITALS: BP 120/50; PULSE 54; RESP 16; TEMP 97.5
== END 2023-08-08 14:17 | disposition home or self-care (01) ==
LOC: JER 08:02
PROC: 3E0233Z Introduction of Anti-inflammatory into Muscle, Percutaneous Approach (ICD-10-PCS; principal; 2023-08-08)
DX: M17.12 Unilateral primary osteoarthritis, left knee (principal); M25.562 Pain in left knee; M25.462 Effusion, left knee; W19.XXXA Unspecified fall, initial encounter
CPT/HCPCS: 73564-TC-LT-FY; 73700-TC-RT; 99284-25; Q0162

== ENCOUNTER 2024-02-10 12:37 | Inpatient (IN) | payer OTHER ==
[2024-02-10 12:58] VITALS: BMI 21.4
[2024-02-10] MEDS ORDERED: ALBUTEROL SO4 HFA INHALER IH PRN (13:16)
[2024-02-10] MEDS ORDERED: ACETAMINOPHEN 325 MG TABLET (FP) PO PRN (13:31)
[2024-02-10] MEDS ORDERED: NICOTINE POLACRILEX 2 MG LOZENGE BC PRN (13:31)
[2024-02-10] MEDS ORDERED: POLYETHYLENE GLYCOL (HEALTHYLAX) 3350 17 GM PACKET PO PRN (13:31)
[2024-02-10] MEDS ORDERED: guaiFENesin 600 MG TABLET.ER (FP) PO PRN (13:31)
[2024-02-10] MEDS ORDERED: IBUPROFEN 400 MG TABLET (FP) PO PRN (13:31)
[2024-02-10] MEDS ORDERED: MAGNESIUM HYDROX 2400MG/30ML ORAL SUSPENSION 30 ML CUP PO PRN (13:31)
[2024-02-10] MEDS ORDERED: BENZONATATE 200 MG CAPSULE PO PRN (13:31)
[2024-02-10] MEDS ORDERED: ONDANSETRON *ODT* 4 MG TABLET SL PRN (13:31)
[2024-02-10] MEDS ORDERED: LOPERAMIDE HCL 2 MG CAPSULE PO PRN (13:31)
[2024-02-10] MEDS ORDERED: BENZOCAINE/MENTHOL (CHLORASEPTIC ) LOZENGE MM PRN (13:31)
[2024-02-10] MEDS ORDERED: NALOXONE (NARCAN) HCL 4 MG/0.1 ML SPRAY NS PRN (13:31)
[2024-02-10] MEDS ORDERED: MAG HYDROX/AL HYDROX/SIMETH 30 ML UNIT-DOSE CUP PO PRN (13:31)
[2024-02-10] MEDS ORDERED: P-EPHED 60MG/TRIPROLIDI 2.5MG TABLET PO PRN (13:31)
[2024-02-10] MEDS ORDERED: cloNIDine HCL 0.1 MG TABLET PO PRN (13:35)
[2024-02-10] MEDS ORDERED: METHYL SALICYLATE/MENTHOL 30 GM TUBE TP PRN (13:36)
[2024-02-10] MEDS: diazePAM 5 MG TABLET PO PRN (16:03)
[2024-02-10] MEDS: methaDONE HCL 10 MG TABLET (FOR DETOX USE ONLY) PO ONE (17:20)
[2024-02-10] MEDS: DICYCLOMINE HCL 10 MG CAPSULE PO PRN (18:54)
[2024-02-10] MEDS: IBUPROFEN 600 MG TABLET (FP) PO PRN (21:52)
[2024-02-10] MEDS: THIAMINE 100 MG TABLET PO SCH (21:52)
[2024-02-10] MEDS: QUEtiapine FUMARATE 50 MG TABLET PO SCH (21:52)
[2024-02-10] MEDS: MELATONIN 5 MG TABLETS PO SCH (21:52)
[2024-02-11] MEDS: amLODIPine BESYLATE 10 MG TABLET (FP) PO SCH (11:06)
[2024-02-11] MEDS: PRENATAL VITAMINS W/ FOLIC ACID TABLET (FP) PO SCH (11:06)
[2024-02-11] MEDS: PANTOPRAZOLE 40 MG TABLET PO SCH (11:06)
[2024-02-11] MEDS: methaDONE HCL 10 MG TABLET (FOR DETOX USE ONLY) PO ONE (11:07)
[2024-02-11 11:29] LABS: CHLORIDE 108 mmol/L (98-107); POTASSIUM 3.4 mmol/L (3.5-5.1); SODIUM 143 mmol/L (136-145)
[2024-02-11 11:30] LABS: ALBUMIN 3.3 g/dl (3.4-5.0); CALCIUM 8.8 mg/dL (8.5-10.1)
[2024-02-11 11:31] LABS: ANION GAP 6 mmol/L (4-13); BLOOD UREA NITROGEN 11.9 mg/dL (7-18); CO2 29 mmol/L (21-32); GLUCOSE,RANDOM 82 mg/dL (74-106)
[2024-02-11 11:34] LABS: CREATININE 0.5 mg/dL (0.55-1.3); SGOT/AST 11 U/L (15-37); SGPT/ALT 15 U/L (13-61)
[2024-02-11 11:36] LABS: BILIRUBIN,TOTAL 0.5 mg/dL (0.2-1); TOT PROT 6.8 g/dl (6.4-8.2)
[2024-02-11 11:37] LABS: ALK PHOS 108 U/L (45-117)
[2024-02-11 11:38] LABS: HEMATOCRIT 38.8 % (32.4-45.2); HEMOGLOBIN 13.3 GM/dL (10.7-15.3); MCH 30.7 pg (25.7-33.7); MCHC 34.2 g/dl (32.0-36.0); MEAN CELL VOLUME 89.8 fl (80-96); MEAN PLT VOLUME 8.8 fl (7.5-11.1); PLATELET COUNT 223 10^3/uL (134-434); RBC 4.32 M/mm3 (3.60-5.2); RDW 15.1 % (11.6-15.6); WHITE BLOOD COUNT 4.1 K/mm3 (4.0-10.0)
[2024-02-11] MEDS: BISMUTH SUBSALICYLATE 524 MG/30 ML PO PRN (13:35)
[2024-02-11] MEDS: POTASSIUM CHLORIDE ORAL LIQUID 20 MEQ/15 ML PO ONE (15:11)
[2024-02-11] MEDS: POTASSIUM CHLORIDE ORAL LIQUID 20 MEQ/15 ML PO SCH (22:55)
[2024-02-12 07:00] VITALS: RESP 18
[2024-02-12] MEDS: NICOTINE POLACRILEX 2 MG GUM BUC PRN (10:19)
[2024-02-12 13:14] VITALS: BP 131/98; PULSE 68; TEMP 97.3
[2024-02-12] MEDS: NALOXONE (NYS OPIOID OVERDOSE PROGRAM) 4 MG/0.1 ML SPRAY NS PRN (14:41)
[2024-02-13] MEDS ORDERED: methaDONE HCL 10 MG TABLET (FOR DETOX USE ONLY) PO ONE (10:00)
== END 2024-02-12 14:39 | disposition left against medical advice (07) | DRG 770 ==
LOC: YASAS 12:37 → Y3N 14:34
PROVIDERS: ADMIT Allergy & Immunology; ATTEND Surgery
PROC: HZ2ZZZZ Detoxification Services for Substance Abuse Treatment (ICD-10-PCS; principal; 2024-02-10)
DX: F11.23 Opioid dependence with withdrawal (principal); F10.20 Alcohol dependence, uncomplicated; F14.20 Cocaine dependence, uncomplicated; F17.210 Nicotine dependence, cigarettes, uncomplicated; F20.0 Paranoid schizophrenia; F32.A Depression, unspecified; F41.9 Anxiety disorder, unspecified; I10 Essential (primary) hypertension; J45.909 Unspecified asthma, uncomplicated; K21.9 Gastro-esophageal reflux disease without esophagitis; M16.0 Bilateral primary osteoarthritis of hip; M17.0 Bilateral primary osteoarthritis of knee; M54.50 Low back pain, unspecified; G89.29 Other chronic pain; Z86.19 Personal history of other infectious and parasitic diseases; Z88.2 Allergy status to sulfonamides
CPT/HCPCS: 36415; 80053; 80305; 80307; 85027; 86593; 86780